=== PATIENT | female | born 1955 | race Caucasian/White ===

== ENCOUNTER → 2017-12-19 11:58 | Outpatient (CLI) | payer OTHER, SELFPAY ==
[2017-12-19 13:43] LABS: Absolute Lymphocyte Count 2.09 X10^3/ul (0.83-4.51); Absolute Neutrophil Count 2.7 X10^3/uL (2.0-7.7); Basophil# 0.02 X10^3/uL; Basophil% 0.4 % (0-1); Eosinophil# 0.12 X10^3/uL; Eosinophils% 2.3 % (0-5); Hematocrit 39.4 % (37-47); Hemoglobin 12.6 g/dl (12.0-15.0); Lymphocyte # 2.09 X10^3/ul (4.0); Lymphocyte % 39.7 % (19-41); Mean Corpuscular Hgb 27.7 pg (27.0-32.0); Mean Corpuscular Volume 86.6 fL (81-99); Mean Platelet Vol. 9.4 fl (6.2-12.0); Monocyte# 0.35 X10^3/uL; Monocyte% 6.6 % (0-10); Neutrophil # 2.68 X10^3/uL (2.7-7.7); Neutrophil % 50.8 % (47-70); Platelet Count 252 K/mm3 (150-450); RBC Distribution Width CV 14.2 % (11.6-14.6); RBC Distribution Width SD 44.5 fl (35.1-43.9); Red Blood Count 4.55 M/mm3 (4.2-5.4); White Blood Count 5.3 K/mm3 (4.4-11.0)
[2017-12-19 13:44] LABS: POSITIVE COUNT NO; POSITIVE DIFFERENTIAL NO; POSITIVE MORPHOLOGY NO
[2017-12-19 13:50] LABS: Erythrocyte Sedimentation Rate 27 mm/hr (0-30)
[2017-12-19 14:02] LABS: AST(SGOT) 34 U/L (15-37); Alanine Aminotransfer ALT/SGPT 46 U/L (13-56); Albumin, Serum 4.1 g/dL (3.2-5.0); Alkaline Phosphatase 155 U/L (45-117); Anion Gap 11 (5-15); BUN 12 mg/dL (7-18); BUN/Creat Ratio 13.6 RATIO (10-20); CRP 5.93 mg/L (0.0-3.0); Calcium,Total 9.5 mg/dL (8.5-10.1); Chloride 104 mmol/L (98-107); Creatinine, Serum 0.88 mg/dL (0.55-1.02); EST Glomerular Filtration Rate 70 mL/min (>60); Est Glom Filt Rate - Afr Amer 84 mL/min (>60); Glucose 93 mg/dL (74-106); Potassium 4.7 mmol/L (3.5-5.1); Protein, Total 8.1 g/dL (6.4-8.2); Rheumatoid Factor < 10.0 IU/mL (<15); Sodium Level 140 mmol/L (136-145)
[2017-12-20 13:44] LABS: SJOGREN'S Anti-SS-A test < 0.2 AI (0.0-0.9); SJOGREN'S Anti-SS-B test < 0.2 AI (0.0-0.9)
[2017-12-20 14:29] LABS: ANTINUCLEAR ANTIBODIES DIRECT Negative (Negative)
[2017-12-21 11:02] LABS: CCP IgG Antibodies 7 units (0-19); HEPATITIS B SURFACE AG Negative (Negative); Hep B Surface Antibodies Non Reactive (.); Hep C Antibodies <0.1 s/co ratio (0.0-0.9)
== END ==
PROVIDERS: Family Provider Family Medicine; PCP Family Medicine; Visit Provider Internal Medicine Rheumatology
DX: M06.4 Inflammatory polyarthropathy (principal); M35.00 Sjogren syndrome, unspecified; C82.90 Follicular lymphoma, unspecified, unspecified site
CPT/HCPCS: 36415; 80053; 85025; 85652; 86038; 86140; 86200; 86235; 86431; 86706; 86803; 87340

== ENCOUNTER 2025-01-26 08:57 | Emergency (ER) | payer MEDICARE, SELFPAY ==
[2025-01-26 08:58] VITALS: BP 156/82; PULSE 56; RESP 18; TEMP 36.6; O2SAT 98
[2025-01-26 08:59] VITALS: BMI 25.1
--- NOTE | 2025-01-26 10:12 | CT_ITS ---
PROCEDURE: CTA ABD/PELVIS W/WO CONTRAST 01/26/2025 REASON FOR EXAM: BLOOD PER RECTUM TECHNIQUE: CTA ABD/PELVIS W/WO CONTRAST Multiplanar Sagittal and Coronal images were obtained. 3D and or MIPS post processing was performed CONTRAST: Isovue 370 VOLUME: 100 mL One or more dose reduction techniques were used (e.g., Automated exposure control, adjustment of the mA and/or kV according to patient size, use of iterative reconstruction technique). RADIATION DOSE SUMMARY: DLP: 540 mGycm COMPARISON: None. FINDINGS: Aorta: Abdominal aorta is normal in size. No significant atherosclerotic plaque. No evidence of aneurysm or dissection. No focus of arterial contrast extravasation to suggest large active arterial bleed. Iliac Arteries: Iliac arteries are normal in size with no significant plaque or stenosis. Celiac: Mild mixed plaque of the celiac origin. Otherwise unremarkable. SMA: Normal. WES : Normal. Renal: The single bilateral renal arteries are widely patent. Extravascular Findings: Suture material within the mid abdomen, compatible with reported history of prior bowel resection. The bowel loops are normal caliber. No ascites or pneumoperitoneum. Thoracolumbar spondylosis. CT/CTA Abd/Pelvis W/WO Contrast IMPRESSION: No focus of arterial contrast extravasation to suggest large active arterial bl eed. Reading Location: [id number]
[2025-01-26 10:21] LABS: Hematocrit 38.3 % (37-47); Hemoglobin 12.6 g/dL (12.0-15.0); Immature Granulocytes Count 0.020 X10^3/uL (0.0-0.0); Mean Corp Hgb Conc 32.9 g/dL (32-36); Mean Corpuscular Volume 87.6 fL (81-99); Mean Platelet Vol. 9.7 fl (6.2-12.0); NRBC Flagged by Analyzer 0 % (0-5); Platelet Count 232 K/mm3 (150-450); RBC Distribution Width CV 12.6 % (11.6-14.6); RBC Distribution Width SD 40.3 fl (35.1-43.9); Red Blood Count 4.37 M/mm3 (4.2-5.4); White Blood Count 6.1 K/mm3 (4.4-11.0)
[2025-01-26] MEDS: 0.9% Normal Saline (1000mL) 1,000 ML 999 ML IV (10:26)
[2025-01-26 10:41] LABS: AST(SGOT) 24 U/L (<=31); Alanine Aminotransfer ALT/SGPT 14 U/L (<=34); Albumin, Serum 4.3 g/dL (3.4-4.8); Alkaline Phosphatase 110 U/L (35-104); Anion Gap 12 (5-15); BUN 13 mg/dL (4-19); BUN/Creat Ratio 15.0 RATIO (10-20); Calcium,Total 9.5 mg/dL (7.6-11.0); Carbon Dioxide 23.6 mmol/L (21.0-32.0); Chloride 105 mmol/L (98-108); Estimated Creatinine Clearance 56.45 ml/min (50-250); Globulin 2.9 g/dL (2.2-4.2); Glucose 91 mg/dL (70-99); Lipase 65 U/L (13-75); Potassium 4.0 mmol/L (3.3-5.1)
--- OUTSIDE RECORDS SUMMARY | 2025-01-26 10:47 | XMS RPT_ITS | CCD ---
Author Organization [facility] Care Team Providers Care Rn Neonatal Name Role Phone VelShahzad tabares Unavailable Unavailable Shahzad Mckinnon Unavailable Unavailable Meg De Jesus Unavailable SHAHZAD MCKINNON Unavailable Unavailable Meg De Jesus MD Primary Care Provider Meg De Jesus MD Primary Care Provider Meg De Jesus MD Primary Care Provider Meg De Jesus MD Primary Care Provider Antwon SCOTT, Miguel Unavailable SHAHEEN WINN Attending Unavailable MEG DE JESUS Primary Care Unavailable SHAHEEN WINN Referring Unavailable MEG DE JESUS Primary Care Unavailable Allergies Allergy Classification Reported Allergen(s) Allergy Type Date of Onset Reaction(s) Facility (20 sources) Tomatoes; Translations: [TOMATOES] Food Allergy 09-06-2011 Intolerance [facility] Work Phone: Medications Current Medications Medication Drug Class(es) Dates Sig (Normalized) Sig (Original) acetaminophen 500 mg oral tablet (20 sources) take 1 tablet by mouth every eight hours as needed acetaminophen (TYLENOL) 500 mg tablet Take 500 mg by mouth every 8 hours as needed. Active Comment on above: Take 500 mg by mouth every 8 hours as needed. aspirin 325 mg oral tablet (20 sources) Platelet Aggregation Inhibitor, Nonsteroidal Anti-inflammatory Drug take 1 tablet by mouth every four hours as needed aspirin 325 mg tablet Take 325 mg by mouth every 4 hours as needed. Active Comment on above: Take 325 mg by mouth every 4 hours as needed. hyoscyamine sulfate 0.125 mg oral tablet (19 sources) Start: 12-02-2022 take 1 tablet by mouth every four hours as needed hyoscyamine (LEVSIN) 0.125 mg tablet Indications: Irregular bowel habits , Diarrhea, unspecified type Take 1 tablet by mouth every 4 hours as needed. 90 tablet 3 12/02/2022 Active Start: 05-05-2020 End: 05-04-2022 take 1 tablet by mouth every four hours as needed hyoscyamine (LEVSIN) 0.125 mg tablet Indications: Irregular bowel habits , Diarrhea, unspecified type Take 1 tablet by mouth every 4 hours as needed. 30 tablet 5 05/04/2022 Active Comment on above: Take 1 tablet by rg every 4 hours as needed. ibuprofen 200 mg oral tablet (20 sources) Nonsteroidal Anti-inflammatory Drug take 1 tablet by mouth every six hours as needed ibuprofen (MOTRIN) 200 mg tablet Take 200 mg by mouth every 6 hours as needed. Usually 1 tablet once a day Active Comment on above: Take 200 mg by mouth every 6 hours as needed. Usually 1 tablet once a day MEDICATION, NON-DATABASE (20 sources) MEDICATION, NON-DATABASE Patient has Medical Marijuana card for pain Active MEDICATION, NON- DATABASE Patient has Medical Marijuana card for pain 0 Active Comment on above: Patient has Medical Marijuana card for pain predniSONE 10 mg oral tablet (1 source) Start: 06-30-2022 End: 07-15-2022 predniSONE (DELTASONE) 10 mg tablet Indications: Acute left-sided low back pain without sciatica Take 4 tabs daily x5 days, then 2 tabs daily for 5 days, then 1 tab daily for 5 days. 35 tablet 0 06/30/2022 07/15/2022 Active Comment on above: Take 4 tabs daily x5 days, then 2 tabs daily for 5 days, then 1 tab daily for 5 days. valACYclovir 500 mg oral tablet (20 sources) Herpesvirus Nucleoside Analog DNA Polymerase Inhibitor, Herpes Simplex Virus Nucleoside Analog DNA Polymerase Inhibitor, Herpes Zoster Virus Nucleoside Analog DNA Polymerase Inhibitor Start: 09-30-2020 End: 05-04-2022 valACYclovir (VALTREX) 500 mg tablet 2 tabs (2000mg) at onset and repeat in 12h 24 tablet 3 05/04/2022 Active Comment on above: 2 tabs (2000mg) at o nset and repeat in 12h Completed/Discontinued Medications Medication Drug Class(es) Dates Sig (Normalized) Sig (Original) [id number] 200 actuat albuterol 0.09 mg/actuat metered dose inhaler (7 sources) beta2-Adrenergic Agonist Start: 01-09-2023 End: 01-21-2025 take 2 puff(s) by mouth every six hours as needed albuterol HFA (PROVENTIL HFA, VENTOLIN HFA) 90 mcg/actuation inhaler INHALE 2 PUFFS BY MOUTH EVERY 6 HOURS NEEDED DIRECTED 8.5 Each 5 01/09/2023 01/21/2025 Discontinued Start: 12-17-2022 End: 01-09-2023 take 2 puff(s) by inhalation every six hours as needed albuterol HFA (PROAIR HFA) 90 mcg/actuation inhaler Inhale 2 Puffs as instructed every 6 hours as needed. 1 Each 0 12/17/2022 01/09/2023 Discontinued Comment on above: Inhale 2 Puffs as in structed every 6 hours as needed. INHALE 2 PUFFS BY MO UT EVERY 6 HOURS NEEDED DIRECTED amitriptyline hydrochloride 50 mg oral tablet (19 sources) Tricyclic Antidepressant Start: 08-27-19 End: 01-22-20 take 1 tablet by mouth at bedtime as needed amitriptyline (ELAVIL) 50 mg tablet Indications: Chronic insomnia Take 1 tablet by mouth at bedtime as needed. For Sedation 90 tablet 1 08/26/2022 01/21/2025 Discontinued Start: 12-04-2021 End: 05-04-2022 take 1 tablet by mouth at bedtime as needed amitriptyline (ELAVIL) 50 mg tablet Indications: Chronic insomnia Take 1 tablet by mouth at bedtime as needed. For Sedation 90 tablet 1 05/04/2022 Active Comment on above: TAKE 1 TABLET BY RG AT BEDTIME NEEDED. FOR SEDATION cholecalciferol 0.05 mg oral capsule (20 sources) Vitamin D End: Cholecalciferol, Vitamin D3, 50 mcg (2,000 unit) cap Take by mouth once daily. 01/21/2025 Discontinued Comment on above: Take by mouth once d aily. cycloSPORINE 0.5 mg/ml ophthalmic suspension (20 sources) Calcineurin Inhibitor Immunosuppressant Start: 019 End: take 1 drop(s) into the eye(s) twice daily cycloSPORINE (RESTASIS) 0.05 % ophthalmic emulsion Use 1 Drop in both eyes twice daily. 02/18/2019 01/21/2025 Discontinued Start: 02-18-2019 take 1 drop(s) into the eye(s) twice daily cycloSPORINE (RESTASIS) 0.05 % ophthalmic emulsion Use 1 Drop in both eyes twice daily. 0 02/18/2019 Active Comment on above: Use 1 Drop in both e yes twice daily. meclizine hydrochloride 25 mg oral tablet (7 sources) Antiemetic Start: 3 End: 5 take 1 tablet by mouth every six hours as needed meclizine (ANTIVERT) 25 mg tab Take 1 tablet by mouth every 6 hours as needed (dizziness). 12 tablet 12/17/2022 01/21/2025 Discontinued Comment on above: Take 1 tablet by rg th every 6 hours as needed (dizziness). Problems Active Problems Problem Classification Problem Date Documented Da te Episodic/Chronic Adjustment disorders (20 sources) Adjustment disorder with depressed mood; Translations: [Adjustment disorder with depressed mood] Onset: 10-07-2003 10-20-2003 Chronic Allergic reactions (1 source) Eczema; Translations: [Dermatitis, unspecified] Episodic Chronic obstructive pulmonary disease and bronchiectasis (1 source) Bronchitis; Translations: [Bronchitis, not specified as acute or chronic] Episodic Genitourinary symptoms and ill-defined conditions (20 sources) Female stress incontinence; Translations: [Stress incontinence (female) (male)] Onset: 07-22-2015 07-22-2015 Chronic Genitourinary symptoms and ill-defined conditions (1 source) Increased frequency of urination; Translations: [Frequency of micturition] Episodic Immunizations and screening for infectious disease (3 sources) Needs influenza immunization; Translations: [Encounter for immunization] Episodic Menopausal disorders (20 sources) Postmenopausal bleeding; Translations: [Postmenopausal bleeding] Onset: 06-03-2014 Chronic Miscellaneous mental health disorders (20 sources) Chronic insomnia; Translations: [Psychophysiologic insomnia] Onset: 09-30-2020 09-30-2020 Chronic Non-Hodgkin's lymphoma (20 sources) Follicular lymphoma, unspecified, unspecified site; Translations: [Follicular non-Hodgkin's lymphoma] Onset: 10-08-2015 Resolved: 10-24-2016 Chronic Osteoarthritis (20 sources) Lower limb joint arthritis; Translations: [Unilateral primary osteoarthritis, unspecified hip] Onset: 03-13-2006 03-13-2006 Chronic Other endocrine disorders (20 sources) Primary hyperparathyroidism; Translations: [Primary hyperparathyroidism] Onset: 01-16-2020 01-16-2020 Chronic Other gastrointestinal disorders (20 sources) Chronic idiopathic constipation; Translations: [Chronic idiopathic constipation] Onset: 07-22-2015 07-22-2015 Chronic Other gastrointestinal disorders (1 source) Diarrhea; Translations: [Diarrhea, unspecified] Episodic Other hereditary and degenerative nervous system conditions (20 sources) Restless legs; Translations: [Restless legs syndrome] Onset: 07-22-2015 07-22-2015 Chronic Other lower respiratory disease (1 source) Cough; Translations: [Acute cough] 12-17-2022 Episodic Other screening for suspected conditions (not mental disorders or infectious disease) (4 sources) Patient encounter status; Translations: [Encounter for screening for lipoid disorders] Episodic Rheumatoid arthritis and related disease (20 sources) Inflammatory polyarthropathy; Translations: [Rheumatoid arthritis of multiple joints] Onset: 12-19-2017 03-09-2020 Chronic Systemic lupus erythematosus and connective tissue disorders (20 sources) Sicca syndrome, unspecified; Translations: [Sjogren's syndrome] Onset: 12-19-2017 03-09-2020 Chronic Past or Other Problems Problem Classification Problem Date Documented Da te Episodic/Chronic Hemorrhoids (20 sources) Prolapsed hemorrhoids; Translations: [Other hemorrhoids] Onset: 07-22-2015 07-22-2015 Episodic Lymphadenitis (20 sources) Lymphadenopathy; Translations: [Enlarged lymph nodes, unspecified] Onset: 09-15-2015 09-15-2015 Episodic Other connective tissue disease (20 sources) Muscle, ligament and fascia disorders; Translations: [Disorder of muscle, unspecified] Onset: 03-13-2006 03-13-2006 Episodic Other connective tissue disease (4 sources) Enthesopathy of hip region; Translations: [Other specified enthesopathies of unspecified lower limb, excluding foot] Onset: 03-13-2006 Resolved: 08-18-2011 08-18-2011 Episodic Other connective tissue disease (4 sources) Bursitis; Translations: [Other bursitis, not elsewhere classified, unspecified site] Onset: 03-13-2006 Resolved: 08-18-2011 08-18-2011 Episodic Other gastrointestinal disorders (20 sources) Personal history of other diseases of the digestive system; Translations: [Personal history of other diseases of digestive system] Onset: 08-18-2011 08-18-2011 Episodic Other gastrointestinal disorders (20 sources) Irregular bowel habits; Translations: [Other specified symptoms and signs involving the digestive system and abdomen] Onset: 02-22-2019 02-22-2019 Episodic Other nervous system disorders (20 sources) Hyperesthesia; Translations: [Hyperesthesia] Onset: 10-22-2015 10-22-2015 Episodic Other skin disorders (4 sources) Disorder of skin; Translations: [Hypertrophic disorder of the skin, unspecified] Onset: 06-04-2007 Resolved: 08-18-2011 08-18-2011 Episodic Other skin disorders (4 sources) Seborrheic keratosis; Translations: [Other seborrheic keratosis] Onset: 06-04-2007 Resolved: 08-18-2011 08-18-2011 Episodic Screening and history of mental health and substance abuse codes (20 sources) Ex-smoker; Translations: [Personal history of nicotine dependence] Onset: 07-22-2015 07-22-2015 Episodic Spondylosis; intervertebral disc disorders; other back problems (20 sources) Neck pain; Translations: [Cervicalgia] Onset: 05-06-2015 05-06-2015 Episodic Viral infection (20 sources) Recurrent herpes simplex labialis; Translations: [Herpesviral vesicular dermatitis] Onset: 09-30-2020 09-30-2020 Episodic Results Test Name Value Interpretation Reference Range Facility CBC W Auto Differential pane l (Bld)on 01-21-2025 Basophils (Bld) [#/Vol] 0.03 10*3/uL [facility] Basophils/100 WBC (Bld) 0.5 % [facility] Differential cell count method Nom (Bld) Auto [facility] Eosinophils (Bld) [#/Vol] 0.05 10*3/uL [facility] Eosinophils/100 WBC (Bld) 0.8 % [facility] Erythrocyte distribution width (RBC) [Ratio] 12.3 % 11.5 - 15.0 % [facility] Hematocrit (Bld) [Volume fraction] 40.5 % 36.0 - 46.0 % [facility] Hemoglobin (Bld) [Mass/Vol] 13.5 g/dL 11.5 - 15.5 g/dL [facility] Immature granulocytes (Bld) [#/Vol] [facility] Immature granulocytes/100 WBC (Bld) 0.2 % [facility] Lymphocytes (Bld) [#/Vol] 2.7 10*3/uL [facility] Lymphocytes/100 WBC (Bld) 43.1 % [facility] MCH (RBC) [Entitic mass] 28.6 pg 26.0 - 34.0 pg [facility] MCHC (RBC) [Mass/Vol] 33.3 g/dL 30.5 - 36.0 g/dL [facility] MCV (RBC) [Entitic vol] 85.8 fL 80.0 - 100.0 fL [facility] Monocytes (Bld) [#/Vol] 0.48 10*3/uL [facility] Monocytes/100 WBC (Bld) 7.7 % [facility] Neutrophils (Bld) [#/Vol] 2.99 10*3/uL [facility] Neutrophils/100 WBC (Bld) 47.7 % [facility] Nucleated RBC (Bld) [#/Vol] [facility] Nucleated RBC/100 WBC (Bld) [Ratio] 0 % /100 WBC [facility] Platelet mean volume (Bld) [Entitic vol] 9.1 fL 9.0 - 12.7 fL [facility] Platelets (Bld) [#/Vol] 225 10*3/uL [facility] RBC (Bld) [#/Vol] 4.72 10*6/uL 3.90 - 5.2 0 m/uL [facility] WBC (Bld) [#/Vol] 6.26 10*3/uL [facility] Basophils (Bld) [#/Vol] 0.03 10*3/uL Normal <0.11 [facility] Comment on above: Order Comment: Speci men Type: BLOOD SPECIMEN Ordering Facility: [facility] Address: [address] [place] [address] Performed By: #### 5 7021-8 #### [facility] CLIA [id number] [address] [place] [address] [place] Basophils/100 WBC (Bld) 0.5 % Normal [facility] Comment on above: Order Comment: Speci men Type: BLOOD SPECIMEN Ordering Facility: [facility] Address: [address] [place] [address] Performed By: #### 5 7021-8 #### [facility] CLIA [id number] [address] [place] [address] [place] Differential cell count method Nom (Bld) Auto Normal [facility] Comment on above: Order Comment: Speci men Type: BLOOD SPECIMEN Ordering Facility: [facility] Address: [address] [place] [address] Performed By: #### 5 7021-8 #### [facility] CLIA [id number] [address] [place] [address] [place] Eosinophils (Bld) [#/Vol] 0.05 10*3/uL Normal <0.46 [facility] Comment on above: Order Comment: Speci men Type: BLOOD SPECIMEN Ordering Facility: [facility] Address: [address] [place] [address] Performed By: #### 5 7021-8 #### [facility] CLIA [id number] [address] [place] [address] [place] Eosinophils/100 WBC (Bld) 0.8 % Normal [facility] Comment on above: Order Comment: Speci men Type: BLOOD SPECIMEN Ordering Facility: [facility] Address: [address] [place] [address] Performed By: #### 5 7021-8 #### [facility] CLIA [id number] [address] [place] [address] [place] Erythrocyte distribution width (RBC) [Ratio] 12.3 % Normal 11.5-15.0 [facility] Comment on above: Order Comment: Speci men Type: BLOOD SPECIMEN Ordering Facility: [facility] Address: [address] [place] [address] Performed By: #### 5 7021-8 #### [facility] CLIA [id number] [address] [place] [address] [place] Hematocrit (Bld) [Volume fraction] 40.5 % Normal 36.0-46.0 [facility] Comment on above: Order Comment: Speci men Type: BLOOD SPECIMEN Ordering Facility: [facility] Address: [address] [place] [address] Performed By: #### 5 7021-8 #### [facility] CLIA [id number] [address] [place] [address] [place] Hemoglobin (Bld) [Mass/Vol] 13.5 g/dL Normal 11.5-15.5 [facility] Comment on above: Order Comment: Speci men Type: BLOOD SPECIMEN Ordering Facility: [facility] Address: [address] [place] [address] Performed By: #### 5 7021-8 #### [facility] CLIA [id number] [address] [place] [address] [place] Immature granulocytes (Bld) [#/Vol] 10*3/uL Normal <0.10 [facility] Comment on above: Order Comment: Speci men Type: BLOOD SPECIMEN Ordering Facility: [facility] Address: [address] [place] [address] Performed By: #### 5 7021-8 #### [id number] [address] [place] [address] [place] Immature granulocytes/100 WBC (Bld) 0.2 % Normal [facility] Comment on above: Order Comment: Speci men Type: BLOOD SPECIMEN Ordering Facility: [facility] Address: [address] [place] [address] Performed By: #### 5 7021-8 #### [facility] CLIA [id number] [address] [place] [address] [place] Lymphocytes (Bld) [#/Vol] 2.70 10*3/uL Normal 1.00-4.00 [facility] Comment on above: Order Comment: Speci men Type: BLOOD SPECIMEN Ordering Facility: [facility] Address: [address] [place] [address] Performed By: #### 5 7021-8 #### [facility] CLIA [id number] [address] [place] [address] [place] Lymphocytes/100 WBC (Bld) 43.1 % Normal [facility] Comment on above: Order Comment: Speci men Type: BLOOD SPECIMEN Ordering Facility: [facility] Address: [address] [place] [address] Performed By: #### 5 7021-8 #### [facility] CLIA [id number] [address] [place] [address] [place] MCH (RBC) [Entitic mass] 28.6 pg Normal 26.0-34.0 [facility] Comment on above: Order Comment: Speci men Type: BLOOD SPECIMEN Ordering Facility: [facility] Address: [address] [place] [address] Performed By: #### 5 7021-8 #### [facility] CLIA [id number] [address] [place] [address] [place] MCHC (RBC) [Mass/Vol] 33.3 g/dL Normal 30.5-36.0 [facility] Comment on above: Order Comment: Speci men Type: BLOOD SPECIMEN Ordering Facility: [facility] Address: [address] [place] [address] Performed By: #### 5 7021-8 #### [facility] CLIA [id number] [address] [place] [address] [place] MCV (RBC) [Entitic vol] 85.8 fL Normal 80.0-100.0 [facility] Comment on above: Order Comment: Speci men Type: BLOOD SPECIMEN Ordering Facility: [facility] Address: [address] [place] [address] Performed By: #### 5 7021-8 #### [facility] CLIA [id number] [address] [place] [address] [place] Monocytes (Bld) [#/Vol] 0.48 10*3/uL Normal <0.87 [facility] Comment on above: Order Comment: Speci men Type: BLOOD SPECIMEN Ordering Facility: [facility] Address: [address] [place] [address] Performed By: #### 5 7021-8 #### [facility] CLIA [id number] [address] [place] [address] [place] Monocytes/100 WBC (Bld) 7.7 % Normal [facility] Comment on above: Order Comment: Speci men Type: BLOOD SPECIMEN Ordering Facility: [facility] Address: [address] [place] [address] Performed By: #### 5 7021-8 #### [facility] CLIA [id number] [address] [place] [address] [place] Neutrophils (Bld) [#/Vol] 2.99 10*3/uL Normal 1.45-7.50 [facility] Comment on above: Order Comment: Speci men Type: BLOOD SPECIMEN Ordering Facility: [facility] Address: [address] [place] [address] Performed By: #### 5 7021-8 #### [facility] CLIA [id number] [address] [place] [address] [place] Neutrophils/100 WBC (Bld) 47.7 % Normal [facility] Comment on above: Order Comment: Speci men Type: BLOOD SPECIMEN Ordering Facility: [facility] Address: [address] [place] [address] Performed By: #### 5 7021-8 #### [facility] CLIA [id number] [address] [place] [address] [place] Nucleated RBC (Bld) [#/Vol] 10*3/uL Normal <0.01 [facility] Comment on above: Order Comment: Speci men Type: BLOOD SPECIMEN Ordering Facility: [facility] Address: [address] [place] [address] Performed By: #### 5 7021-8 #### [facility] CLIA [id number] [address] [place] [address] [place] Nucleated RBC/100 WBC (Bld) [Ratio] 0.0 /100 WBC Normal [facility] Comment on above: Order Comment: Speci men Type: BLOOD SPECIMEN Ordering Facility: [facility] Address: [address] [place] [address] Performed By: #### 5 7021-8 #### [facility] CLIA [id number] [address] [place] [address] [place] Platelet mean volume (Bld) [Entitic vol] 9.1 fL Normal 9.0-12.7 [facility] Comment on above: Order Comment: Speci men Type: BLOOD SPECIMEN Ordering Facility: [facility] Address: [address] [place] [address] Performed By: #### 5 7021-8 #### [facility] CLIA [id number] [address] [place] [address] [place] Platelets (Bld) [#/Vol] 225 10*3/uL Normal 150-400 [facility] Comment on above: Order Comment: Speci men Type: BLOOD SPECIMEN Ordering Facility: [facility] Address: [address] [place] [address] Performed By: #### 5 7021-8 #### [facility] CLIA [id number] [address] [place] [address] [place] RBC (Bld) [#/Vol] 4.72 10*6/uL Normal 3.90-5.20 [facility] Comment on above: Order Comment: Speci men Type: BLOOD SPECIMEN Ordering Facility: [facility] Address: [address] [place], [place] [address] Performed By: #### 5 7021-8 #### [facility] LINDAIA [id number] [address] [place] [address] [place] WBC (Bld) [#/Vol] 6.26 10*3/uL Normal 3.70-11.00 [facility] Comment on above: Order Comment: Speci men Type: BLOOD SPECIMEN Ordering Facility: [facility] Address: [address] [place] [place] [id number] Performed By: #### 5 7021-8 #### [facility] CLIA [id number] [address] [place] [address] [place] CNOVSPon 01-21-2025 CNOVSP Visit (SP) Office ([facility]) MAX ROLDAN ([id number]) 1955 F Date Time Provider Department 01/21/25 11:10 AM SHAHEEN WINN During your visit today, we recorded the following information about you: Temperature Pulse Blood pressure Weight 99.1 degrees 76/minute 130/87 64 kg Height 1.565 m Shaheen Winn DO 01/21/2025 11:53 AM Signed Diagnosis: 1) Grade 1, stage III follicular lymphoma. HPI: Patient is a 69-year-old female who had an unremarkable past medical history. She appreciated a lump just above right clavicle about a year prior to evaluation. Also noticed over the last year or so prior to presentation she had increasing fatigue and a decrease in aerobic exercise capacity. She underwent a workup fall 2014 that was suggestive of acute Roman-Josue infection/mononucleosis . Originally underwent a FNA of a supraclavicular right-sided lymph node. The pathology yielded a mixture of lymphocytes, probably small lymphocytes and a few large lymphocytes which were negative for metastatic carcinoma but suspicious for possible underlying lymphoproliferative disorder. Underwent excisional lymph node biopsy on 09/30/2015. 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 Flow cytometry analysis done at outside lab revealed a CD10 positive, CD20 positive monoclonal lymphocyte population consistent with follicular, some diffuse large B-cell lymphomas and Burkitt lymphoma. Very active typically, but started experiencing fatigue and marked decrease in exercise capacity due to general fatigue. Appetite had been normal. Previous therapy: 1) BR. Completed treatment 04/15/2016. Presents to re-establish care. Interim history: Moved to [place] in 2022. Has been doing well overall. Planning to move back to [place] early next year. Appetite is normal. However she has been making an effort to lose weight. Has lost about 15 pounds. No drenching night sweats. No significant fatigue. No pain besides chronic lower back pain. PMH, medications and allergies as below personally reviewed by me today. Any changes documented in appropriate section. ROS: Constitutional: See above. Neuro: No symptoms of neuropathy. HEENT: No recent change in voice, vision or hearing. Resp: Denies wheeze and hemoptysis. Denies shortness of breath at rest. CVS: Denies exertional chest pain, PND, orthopnea and LE edema. GI: No nausea or vomiting. : Denies dysuria or gross hematuria. No symptoms of bladder outlet obstruction. Endo: Denies hot flashes. Denies polyuria and polydipsia. Denies heat and cold intolerance. Derm: No rash. No episodes of jaundice or diffuse pruritus. Heme: Denies unusual bleeding and unexplained bruising. Psych: Normal mood. PHYSICAL EXAM: Vitals: Blood pressure 130/87, pulse 76, temperature 37.3 ?C (99.1 ?F), temperature source Temporal, height 156.5 cm (5' 1.61), weight 64 kg (141 lb), last menstrual period 01/15/2013, SpO2 97%. Well-appearing and in no acute distress. EYES: Sclerae are anicteric bilaterally. LYMPHATIC: There is no palpable cervical, supraclavicular, axillary or inguinal adenopathy. CARDIOVASCULAR: Rhythm is regular. ABDOMEN: The abdomen is nondistended. There is no organomegaly. Extremities: No swelling or edema. SKIN: No jaundice or rash. ASSESSMENT/PLAN: (C82.80) Malignant lymphoma, follicular center cell (HCC) (primary encounter diagnosis) Assessmentt: -FLIPI=2 (increased LDH and stage III disease) indicating intermediate risk. -Did not recommend maintenance rituximab due to low lymphocyte count and the potential for longer term immunosuppression. -Currently no concerning symptoms or exam findings to suggest recurrence. Plan: -Labs today. -Re-assess in about 6 months. Portions of this documentation were copied and pasted from my previous office visit note dated 12/14/2022 in order to provide a cohesive continuity of the history. The note has been reviewed and edited and updated as necessary. I spent a total of 20 minutes on the date of the service which included preparing to see the patient, [id number] patient care, completing clinical documentation, obtaining and/or reviewing separately obtained history, performing a medically appropriate examination, ordering medications, tests, or procedures, communicating with other HCPs (not separately reported), and communicating results to the patient/family/caregive rJerod Winn DO Allergies As of Date: 01/21/2025 Noted Allergy Reaction TOMATOES 09/06/2011 5 - Intolerance Date Reviewed: 01/21/2025 Reviewed by: Shaheen Winn DO - Fully Assessed Reason for Visit: Established Patient [175] Primary Visit Diagnosis: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 Normal [facility] Comprehensive metabolic 2000 panelOrdered By: Akiko Moore on 01-21-2025 Albumin [Mass/Vol] 4.6 g/dL 3.9 - 4.9 g/dL [facility] ALP [Catalytic activity/Vol] 122 U/L 34 - 123 U/L [facility] ALT [Catalytic activity/Vol] 14 U/L 7 - 38 U/L [facility] Anion gap [Moles/Vol] 15 mmol/L 8 - 15 mmol/L [facility] AST [Catalytic activity/Vol] 20 U/L 13 - 35 U/L [facility] Bilirubin [Mass/Vol] 0.4 mg/dL 0.2 - 1 .3 mg/dL [facility] Calcium [Mass/Vol] 9.8 mg/dL 8.5 - 10. 2 mg/dL [facility] Chloride [Moles/Vol] 103 mmol/L 98 - 10 7 mmol/L [facility] CO2 [Moles/Vol] 21 mmol/L Low 22 - 30 mmol/L [facility] Creatinine [Mass/Vol] 0.88 mg/dL 0.58 - 0.96 mg/dL [facility] GFR/1.73 sq M.predicted among non-blacks MDRD (S/P/Bld) [Vol rate/Area] 72 mL/min/{1.73_m2} - PINF [facility] Comment on above: Estimated Glomerular Filtration Rate (eGFR) is calculated using the 2020 CKD-EPI creatinine equation. This equation utilizes serum creatinine, sex, and age as parameters. The creatinine assay has traceable calibration to isotope dilution-mass spectrometry. Refer to KDIGO guidelines for clinical interpretation. In patients with unstable renal function, e.g. those with acute kidney injury, the eGFR may not accurately reflect actual GFR. Glucose [Mass/Vol] 111 mg/dL High 74 - 99 mg/dL [facility] Comment on above: The [place] Diabete s Association (ADA) provides guidance for cutoff values for fasting glucose and random glucose. The ADA defines fasting as no caloric intake for at least 8 hours. Fasting plasma glucose results between 100 to 125 mg/dL indicate increased risk for diabetes (prediabetes). Fasting plasma glucose results greater than or equal to 126 mg/dL meet the criteria for diagnosis of diabetes. In the absence of unequivocal hyperglycemia, results should be confirmed by repeat testing. In a patient with classic symptoms of hyperglycemia or hyperglycemic crisis, random plasma glucose results greater than or equal to 200 mg/dL meet the criteria for diagnosis of diabetes. Reference: Standards of Medical Care in Diabetes 2016, [place] Diabetes Association. Diabetes Care. 2016.39(Suppl 1). Interpretation and review of laboratory results Abnormal [facility] Potassium [Moles/Vol] 4 mmol/L 3.7 - 5.1 mmol/L [facility] Protein [Mass/Vol] 7.8 g/dL 6.3 - 8.0 g/dL [facility] Sodium [Moles/Vol] 139 mmol/L 136 - 144 mmol/L [facility] Urea nitrogen [Mass/Vol] 15 mg/dL 7 - 21 mg/dL [facility] Comprehensive metabolic 2000 panelon 01-21-2025 Albumin [Mass/Vol] 4.6 g/dL Normal 3.9-4.9 [facility] Comment on above: Order Comment: Speci men Type: BLOOD SPECIMEN Ordering Facility: [facility] Address: [address] [place] [address] Performed By: #### 2 4323-8, 2532-0 #### [facility] CLIA [id number] [address] [place] [address] [place] ALP [Catalytic activity/Vol] 122 U/L Normal 34-123 [facility] Comment on above: Order Comment: Speci men Type: BLOOD SPECIMEN Ordering Facility: [facility] Address: [address] [place] [address] Performed By: #### 2 4323-8, 2532-0 #### [facility] CLIA [id number] [address] [place] [address] [place] ALT [Catalytic activity/Vol] 14 U/L Normal 7-38 [facility] Comment on above: Order Comment: Speci men Type: BLOOD SPECIMEN Ordering Facility: [facility] Address: [address] [place] [address] Performed By: #### 2 4323-8, 2532-0 #### [facility] CLIA [id number] [address] [place] [address] [place] Anion gap [Moles/Vol] 15 mmol/L Normal 8-15 [facility] Comment on above: Order Comment: Speci men Type: BLOOD SPECIMEN Ordering Facility: [facility] Address: [address] [place] [address] Performed By: #### 2 4323-8, 2532-0 #### [facility] CLIA [id number] [address] [place] [address] [place] AST [Catalytic activity/Vol] 20 U/L Normal 13-35 [facility] Comment on above: Order Comment: Speci men Type: BLOOD SPECIMEN Ordering Facility: [facility] Address: [address] [place] [address] Performed By: #### 2 4323-8, 2531-0 #### [facility] CLIA [id number] [address] [place] [address] [place] Bilirubin [Mass/Vol] 0.4 mg/dL Normal 0.2-1.3 [facility] Comment on above: Order Comment: Speci men Type: BLOOD SPECIMEN Ordering Facility: [facility] Address: [address] [place], [place] [address] Performed By: #### 2 4323-8, 2531-0 #### [facility] CLIA [id number] [address] [place] [address] [place] Calcium [Mass/Vol] 9.8 mg/dL Normal 8.5-10.2 [facility] Comment on above: Order Comment: Speci men Type: BLOOD SPECIMEN Ordering Facility: [facility] Address: [address] [place], [place] [address] Performed By: #### 2 4323-8, 2531-0 #### [facility] CLIA [id number] [address] [place] [address] [place] Chloride [Moles/Vol] 103 mmol/L Normal 98-107 [facility] Comment on above: Order Comment: Speci men Type: BLOOD SPECIMEN Ordering Facility: [facility] Address: [address] [place] [address] Performed By: #### 2 4323-8, 2531-0 #### [facility] CLIA [id number] [address] [place] [address] [place] CO2 [Moles/Vol] 21 mmol/L Low 22-30 [facility] Comment on above: Order Comment: Speci men Type: BLOOD SPECIMEN Ordering Facility: [facility] Address: [address] [place] [address] Performed By: #### 2 4323-8, 253-0 #### [facility] CLIA [id number] [address] [place] [address] [place] Creatinine [Mass/Vol] 0.88 mg/dL Normal 0.58-0.96 [facility] Comment on above: Order Comment: Yonatan aguilar Type: BLOOD SPECIMEN Ordering Facility: [facility] Address: [address] [place] [address] Performed By: #### 2 4323-8, 2531-0 #### [facility] CLIA [id number] [address] [place] [address] [place] eGFRcr SerPlBld CKD-EPI 2020 72 mL/min/1.73m??? Normal >=60 [facility] Comment on above: Order Comment: Yonatan aguilar Type: BLOOD SPECIMEN Ordering Facility: [facility] Address: [address] [place] [address] Result Comment: Nicole mated Glomerular Filtration Rate (eGFR) is calculated using the 2020 CKD-EPI creatinine equation. This equation utilizes serum creatinine, sex, and age as parameters. The creatinine assay has traceable calibration to isotope dilution-mass spectrometry. Refer to KDIGO guidelines for clinical interpretation. In patients with unstable renal function, e.g. those with acute kidney injury, the eGFR may not accurately reflect actual GFR. Performed By: #### 2 4323-8, 2531-0 #### [facility] CLIA [id number] [address] [place] [address] [place] Glucose [Mass/Vol] 111 mg/dL High 74-99 [facility] Comment on above: Order Comment: Yonatan aguilar Type: BLOOD SPECIMEN Ordering Facility: [facility] Address: [address] [place] [address] Result Comment: The [place] Diabetes Association (ADA) provides guidance for cutoff values for fasting glucose and random glucose. The ADA defines fasting as no caloric intake for at least 8 hours. Fasting plasma glucose results between 100 to 125 mg/dL indicate increased risk for diabetes (prediabetes). Fasting plasma glucose results greater than or equal to 126 mg/dL meet the criteria for diagnosis of diabetes. In the absence of unequivocal hyperglycemia, results should be confirmed by repeat testing. In a patient with classic symptoms of hyperglycemia or hyperglycemic crisis, random plasma glucose results greater than or equal to 200 mg/dL meet the criteria for diagnosis of diabetes. Reference: Standards of Medical Care in Diabetes 2016, [place] Diabetes Association. Diabetes Care. 2016.39(Suppl 1). Performed By: #### 2 4323, 0 #### [facility] CLIA [id number] [address] [place] [address] [place] Potassium [Moles/Vol] 4.0 mmol/L Normal 3.7-5.1 [facility] Comment on above: Order Comment: Yonatan aguilar Type: BLOOD SPECIMEN Ordering Facility: [facility] Address: [address] [place] [address] Performed By: #### 2 43208-31, 0 #### [facility] CLIA [id number] [address] [place] [address] [place] Protein [Mass/Vol] 7.8 g/dL Normal 6.3-8.0 [facility] Comment on above: Order Comment: Yonatan aguilar Type: BLOOD SPECIMEN Ordering Facility: [facility] Address: [address] [place] [address] Performed By: #### 2 43208-31, 0 #### [facility] CLIA [id number] [address] [place] [address] [place] Sodium [Moles/Vol] 139 mmol/L Normal 136-144 [facility] Comment on above: Order Comment: Yonatan aguilar Type: BLOOD SPECIMEN Ordering Facility: [facility] Address: [address] [place] [address] Performed By: #### 2 4328, 2531-0 #### [facility] CLIA [id number] [address] [place] [address] [place] Urea nitrogen [Mass/Vol] 15 mg/dL Normal 7-21 [facility] Comment on above: Order Comment: Speci men Type: BLOOD SPECIMEN Ordering Facility: [facility] Address: [address] [place], [place] [address] Performed By: #### 2 4323-8, 2532-0 #### [facility] CLIA [id number] [address] [place] [address] [place] LACTATE DEHYDROGENASEon 12-25 LDH [Catalytic activity/Vol] 178 U/L 135 - 214 U/L [facility] LDH SerPl-cCncon 01-21-2025 LDH [Catalytic activity/Vol] 178 U/L Normal 135-214 [facility] Comment on above: Order Comment: Speci jeff Type: BLOOD SPECIMEN Ordering Facility: [facility] Address: [address] [place] [address] Performed By: #### 2 4323-8, 2-0 #### [facility] CLIA [id number] [address] [place] [address] [place] LDH [Catalytic activity/Vol] on 01-21-2025 Interpretation and review of laboratory results Normal [facility] XR CHEST 2V FRONTAL/LATon [facility] XR Chest PA and Lateralon IMPRESSION: No acute pulmonary process is identified. [employer] Technician: [employer] Transcribe Date/Time: Dec 17 2022 10:03A Dictated by : DANIELLE SANDERS MD This examination was interpreted and the report reviewed and electronically signed by: DANIELLE SANDERS MD on Dec 17 2022 10:04AM [facility] DIVISION OF RADIOLOGY * * *Final Report* * * DATE OF EXAM: Dec 17 2022 9:46AM WOX [id number] - XR CHEST 2V FRONTAL/LAT / PROCEDURE REASON: Acute cough * * * * Physician Interpretation * * * * EXAMINATION: CHEST RADIOGRAPH (2 VIEW FRONTAL & LATERAL) CLINICAL HISTORY: Acute cough MQ: XC2_6 EXAM DATE/TIME: 12/17/2022 9:46 AM RESULT: The heart is normal in size. There is no hebert pulmonary consolidation, pleural effusion, pneumothorax, or pulmonary vascular redistribution. There is multilevel degenerative change seen within the thoracic spine. DIVISION OF RADIOLOGY Provider, Peter Woods - 12/17/2022 * * *Final Report* * * DATE OF EXAM: Dec 17 2022 9:46AM WOX 5291 - XR CHEST 2V FRONTAL/LAT / PROCEDURE REASON: Acute cough * * * * Physician Interpretation * * * * EXAMINATION: CHEST RADIOGRAPH (2 VIEW FRONTAL & LATERAL) CLINICAL HISTORY: Acute cough MQ: XC2_6 EXAM DATE/TIME: 12/17/2022 9:46 AM RESULT: The heart is normal in size. There is no hebert pulmonary consolidation, pleural effusion, pneumothorax, or pulmonary vascular redistribution. There is multilevel degenerative change seen within the thoracic spine. IMPRESSION IMPRESSION: No acute pulmonary process is identified. Alternative Energy Technician: [facility] Transcribe Date/Time: Dec 17 2022 10:03A Dictated by : DANIELLE SANDERS MD This examination was interpreted and the report reviewed and electronically signed by: DANIELLE SANDERS MD on Dec 17 2022 10:04AM EST [facility] Radiology Study observation (narrative) [facility] XR Chest PA and LateralOrder ed By: [facility] Provider on 12-17-2022 [facility] XR Lumbar spine 3 Viewson IMPRESSION: DEGENERATIVE CHANGE AND ALIGNMENT ABNORMALITIES DESCRIBED. Alternative [employer] Technician: [facility] Transcribe Date/Time: Jul 04 2022 10:38A Dictated by : RALF BUCKNER MD This examination was interpreted and the report reviewed and electronically signed by: RALF BUCKNER MD on Jul 04 2022 10:50AM [facility] DIVISION OF RADIOLOGY * * *Final Report* * * DATE OF EXAM: Jun 30 2022 5:24PM WOX 5228 - XR LUMBAR 3V AP/LAT/L5-S1 / PROCEDURE REASON: Acute left-sided low back pain without sciatica * * * * Physician Interpretation * * * * Examination: XR LUMBAR 3V AP/LAT/L5-S1 History: Acute left-sided low back pain without sciatica Technique: XR LUMBAR 3V AP/LAT/L5-S1 Comparison: CT scans of 10/28/2015 RESULT: 5 nonrib-bearing lumbar-type vertebrae. For numbering purposes, L4-5 is the level of the iliac crest. Moderate L4-5 disc space narrowing. Severe L5-S1 disc space narrowing. Grade 1 spondylolisthesis of L4 on L5. Degenerative change involving the posterior elements from L3 through S1. No fracture or bony abnormality DIVISION OF RADIOLOGY Provider, Peter abernathy [place] - 07/04/2022 * * *Final Report* * * DATE OF EXAM: Jun 30 2022 5:24PM WOX [id number] - XR LUMBAR 3V AP/LAT/L5-S1 / PROCEDURE REASON: Acute left-sided low back pain without sciatica * * * * Physician Interpretation * * * * Examination: XR LUMBAR 3V AP/LAT/L5-S1 History: Acute left-sided low back pain without sciatica Technique: XR LUMBAR 3V AP/LAT/L5-S1 Comparison: CT scans of 10/28/2015 RESULT: 5 nonrib-bearing lumbar-type vertebrae. For numbering purposes, L4-5 is the level of the iliac crest. Moderate L4-5 disc space narrowing. Severe L5-S1 disc space narrowing. Grade 1 spondylolisthesis of L4 on L5. Degenerative change involving the posterior elements from L3 through S1. No fracture or bony abnormality IMPRESSION IMPRESSION: DEGENERATIVE CHANGE AND ALIGNMENT ABNORMALITIES DESCRIBED. [employer] Technician: [employer] Transcribe Date/Time: Jul 04 2022 10:38A Dictated by : RALF BUCKNER MD This examination was interpreted and the report reviewed and electronically signed by: RALF BUCKNER MD on Jul 04 2022 10:50AM EST [facility] XR Lumbar spine 3 ViewsOrder ed By: Ccf Provider on 07-04-2022 [facility] XR Lumbar spine 3 Viewson Radiology Study observation (narrative) [facility] UA DIP, URINE (POC)on 2022 BILIRUBIN UA (POCT) Negative Negative [facility] CLARITY UA (POCT) Clear [facility] COLOR UA (POCT) Yellow [facility] GLUCOSE UA (POCT) Negative Negative mg/dL [facility] HEMOGLOBIN/BLOOD UA (POCT) Negative Negative [facility] KETONE UA (POCT) Negative Negative mg/dL [facility] LEUKOCYTES UA (POCT) Negative Negative [facility] NITRITE UA (POCT) Negative Negative [facility] PH UA (POCT) 5.5 4.5 - 8.0 [facility] Protein Ql (U) Negative Negative mg/dL [facility] SPECIFIC GRAVITY UA (POCT) 1.015 1.005 - 1.030 [facility] UROBILINOGEN UA (POCT) 0.2 E.U./dL Normal E.U./dL [facility] .Auto Diffon 03-05-2018 Ammonia mass conc (P) 0.40 10 3/mcL Normal 0.15-1.00 [facility] ([place]) Comment on above: Performed By: #### C PADILLA SONG, ANEU ####[place] [address]#### GFR, CMP ####[address] [address] Basophils Auto #/vol (Bld) 0.00 10 3/mcL Normal 0.00-0.19 [facility] ([place]) Comment on above: Performed By: #### PADILLA KNAPP, ANEU ####[place] [address]#### GFR, CMP ####[address] [address] Basophils/100 WBC Auto (Bld) 0.6 % Normal 0.0-2.5 [facility] ([place]) Comment on above: Performed By: #### PADILLA KNAPP, ANEU ####[place] [address] [address]#### GFR, CMP ####[address] [address] Eosinophils Auto #/vol (Bld) 0.10 10 3/mcL Normal 0.00-0.40 [facility] ([place]) Comment on above: Performed By: #### PADILLA KNAPP, ANEU ####[address]eth [address] [place] [address]#### GFR, CMP ####[address] [address] Eosinophils/100 WBC Auto (Bld) 2.7 % Normal 0.0-7.0 [facility] ([place]) Comment on above: Performed By: #### C BC, ADIFF, ANEU ####[address] [place], [place] [address]#### GFR, CMP ####[address] [address] Lymphocytes Auto #/vol (Bld) 2.00 10 3/mcL Normal 0.77-3.85 [facility] ([place]) Comment on above: Performed By: #### C BC, ADIFF, ANEU ####[address] [place], [place] [address]#### GFR, CMP ####[address] [address] Lymphocytes/100 WBC Auto (Bld) 43.4 % Normal 10.0-50.0 [facility] ([place]) Comment on above: Performed By: #### C BC, ADIFF, ANEU ####[id number] [place] [address]#### GFR, CMP ####[address] [address] Monocytes/100 WBC Auto (Bld) 8.4 % Normal 1.7-13.0 [facility] ([place]) Comment on above: Performed By: #### C BC, ADIFF, ANEU ####[address] [place], [place] [address]#### GFR, CMP ####[address] [address] Neutrophils/100 WBC Auto (Bld) 44.9 % Normal 37.0-80.0 [facility] ([place]) Comment on above: Performed By: #### C BC, ADIFF, ANEU ####Kenneth [address] [place], [place] [address]#### GFR, CMP ####[address] [address] .GFRon 03-05-2018 GFR Non- 70 ml/min/1.73sqm Normal [facility] ([place]) Comment on above: Result Comment: GFR Population mean for , Non- Americans Ages 20-29 = 116 mL/min/1.73 sq.m. Ages 30-39 = 107 mL/min/1.73 sq.m. Ages 40-49 = 99 mL/min/1.73 sq.m. Ages 50-59 = 93 mL/min/1.73 sq.m. Ages 60-69 = 85 mL/min/1.73 sq.m. Ages 70+ = 75 mL/min/1.73 sq.m.Chronic Kidney Disease: Less than 60 mL/min/1.73 square metersEnd Stage Renal Disease: Less than 15 mL/min/1.73 square meters Performed By: #### C BC, ADIFF, ANEU ####[address] [place] [address]#### GFR, CMP ####[place] [address] GFR 85 ml/min/1.73sqm Normal [facility] ([place]) Comment on above: Result Comment: GFR Population mean for , Non- Americans Ages 20-29 = 116 mL/min/1.73 sq.m. Ages 30-39 = 107 mL/min/1.73 sq.m. Ages 40-49 = 99 mL/min/1.73 sq.m. Ages 50-59 = 93 mL/min/1.73 sq.m. Ages 60-69 = 85 mL/min/1.73 sq.m. Ages 70+ = 75 mL/min/1.73 sq.m.Chronic Kidney Disease: Less than 60 mL/min/1.73 square metersEnd Stage Renal Disease: Less than 15 mL/min/1.73 square meters Performed By: #### C BC, ADIFF, ANEU ####[address] [place] [id number]#### GFR, CMP ####[place] [id number] .NEUABSon 03-05-2018 Neutrophil, Absolute 2.00 10 3/mcL Low 2.85-6.16 [facility] ([place]) Comment on above: Performed By: #### C BC, NASIFF, ANEU ####[address] [place] [address]#### GFR, CMP ####[place] [address] CBCon 03-05-2018 Erythrocyte distribution width Auto Ratio (RBC) 14.3 % Normal 11.5-14.5 [facility] ([place]) Comment on above: Performed By: #### C BC, ADIFF, ANEU ####[address] [place] [address]#### GFR, CMP ####[place] [address] Hematocrit Auto Volume Fraction (Bld) 39.5 % Normal 37.0-47.0 [facility] ([place]) Comment on above: Performed By: #### C NOHEMI, ADIFF, ANEU ####[address] [place] [address]#### GFR, CMP ####[place] [address] Hemoglobin mass conc (Bld) 13.4 G/dL Normal 12.0-16.0 [facility] ([place]) Comment on above: Performed By: #### C NOHEMI, ADIFF, ANEU ####[place] [address]#### GFR, CMP ####[place] [address] MCH Auto Entitic mass (RBC) 28.9 pg Normal 27.0-31.2 [facility] ([place]) Comment on above: Performed By: #### C BC, ADIFF, ANEU ####[address] [place] [address]#### GFR, CMP ####[place] [address] MCHC Auto mass conc (RBC) 34.1 G/dL Normal 33.0-37.0 [facility] ([place]) Comment on above: Performed By: #### C BC, ADIFF, ANEU ####Kenneth [address] [place] [address]#### GFR, CMP ####[address] [address] MCV Auto Entitic volume (RBC) 84.7 fL Normal 80.0-94.0 [facility] ([place]) Comment on above: Performed By: #### PADILLA KNAPP, ANEU ####[place] [address]#### GFR, CMP ####[place] [address] Platelet mean volume Auto Entitic volume (Bld) 7.5 fL Normal 7.4-10.4 [facility] ([place]) Comment on above: Performed By: #### C PADILLA SONG, ANEU ####[place] [address]#### GFR, CMP ####[place] [address] Platelets Auto #/vol (Bld) 231 10 3/mcL Normal 130-400 [facility] ([place]) Comment on above: Performed By: #### PADILLA KNAPP, ANEU ####[place] [address]#### GFR, CMP ####[place] [address] RBC Auto #/vol (Bld) 4.66 10 6/mcL Normal 4.20-5.40 [facility] ([place]) Comment on above: Performed By: #### C PADILLA SONG, ANEU ####[place] [address]#### GFR, CMP ####[place] [address] WBC Auto #/vol (Bld) 4.50 10 3/mcL Low 4.60-10.80 [facility] ([place]) Comment on above: Performed By: #### PADILLA KNAPP, ANEU ####[address] [place] [address]#### GFR, CMP ####[place] [address] CMPon 03-05-2018 Albumin mass conc 4.4 G/dL Normal 3.4-4.8 [facility] ([place]) Comment on above: Performed By: #### C BC, ADIFF, ANEU ####[address] [address]#### GFR, CMP ####[address] [address] Albumin/Globulin mass ratio 1.4 {ratio} Normal 1.1-2.5 [facility] ([place]) Comment on above: Performed By: #### C BC, ADIFF, ANEU ####[address] [address]#### GFR, CMP ####[address] [address] ALP enzyme act/vol 108 U/L Normal 40-135 [facility] ([place]) Comment on above: Performed By: #### C BC, ADIFF, ANEU ####[place] [address]#### GFR, CMP ####[address] [address] ALT enzyme act/vol 26 U/L Normal 10-35 [facility] ([place]) Comment on above: Performed By: #### C BC, ADIFF, ANEU ####[place] [id number]#### GFR, CMP ####[address] [address] AST enzyme act/vol 22 U/L Normal 10-40 [facility] ([place]) Comment on above: Performed By: #### C BC, ADIFF, ANEU ####[address] [address]#### GFR, CMP ####[address] [address] Bili Total 0.4 mg/dL Normal 0.2-1.0 [facility] ([place]) Comment on above: Performed By: #### C BC, ADIFF, ANEU ####[place] [id number]#### GFR, CMP ####[facility] [place] [address] Globulin Calculated mass conc (S) 3.1 G/dL Normal [facility] ([place]) Comment on above: Performed By: #### C BC, ADIFF, ANEU ####Kenneth [address] [place], [place] [address]#### GFR, CMP ####[facility] [place] [address] Glucose mass conc 101 mg/dL Normal 80-115 [facility] ([place]) Comment on above: Performed By: #### C BC, ADIFF, ANEU ####Kenneth [address] [place], [place] [address]#### GFR, CMP ####[address] [address] Protein mass conc 7.5 G/dL Normal 6.4-8.2 [facility] ([place]) Comment on above: Performed By: #### C BC, ADIFF, ANEU ####Kenneth [address] [place], [place] [address]#### GFR, CMP ####[facility] [place] [address] Urea nitrogen mass conc 15 mg/dL Normal 7-18 [facility] ([place]) Comment on above: Performed By: #### C BC, ADIFF, ANEU ####Kenneth [address] [place], [place] [address]#### GFR, CMP ####[address] [address] Urea nitrogen/Creatinine mass ratio 18 ratio Normal 7-27 [facility] ([place]) Comment on above: Performed By: #### C BC, ADIFF, ANEU ####Kenneth [address] [place], [place] [address]#### GFR, CMP ####[place] [id number] [place] [address] Calcium mass conc 9.6 mg/dL Normal 8.4-10.2 [facility] ([place]) Comment on above: Performed By: #### C BC, ADIFF, ANEU ####[place] [place], [place] [address]#### GFR, CMP ####[address] [address] Chloride molar conc 105 mmol/L Normal 98-107 [facility] ([place]) Comment on above: Performed By: #### C BC, ADIFF, ANEU ####[facility] [place], [place] [id number]#### GFR, CMP ####[place] [address] CO2 molar conc 25 mmol/L Normal 23-31 [facility] ([place]) Comment on above: Performed By: #### C BC, ADIFF, ANEU ####[place] [address]#### GFR, CMP ####[place] [address] Creatinine mass conc 0.83 mg/dL Normal 0.55-1.02 [facility] ([place]) Comment on above: Performed By: #### C BC, ADIFF, ANEU ####[place] [address]#### GFR, CMP ####[place] [address] Electrolyte Balance 13.0 mEq/L Normal [facility] ([place]) Comment on above: Performed By: #### C BC, ADIFF, ANEU ####[place] [address]#### GFR, CMP ####[place] [address] Potassium molar conc 4.4 mmol/L Normal 3.5-5.1 [facility] ([place]) Comment on above: Performed By: #### C BC, ADIFF, ANEU ####[place] [id number]#### GFR, CMP ####[address] [address] Sodium molar conc 143 mmol/L Normal 136-145 [facility] ([place]) Comment on above: Performed By: #### C BC, ADIFF, ANEU ####Kenneth [address] [place], [place] [address]#### GFR, CMP ####[address] [address] CCP IgG Antibodieson 018 ANTI-CCP 214183 7 units Normal 0-19 [facility] Comment on above: Result Comment: Nega tive <20 Weak positive 20 - 39 Moderate positive 40 - 59 Strong positive >59 Performed By: #### L 100.0100, L101.9900 ####[facility] [address] [place], [place], [id number] Hep B Surface Antibodieson 0 12-21-2017 Hep B Jones AB Non Reactive Normal . [facility] Comment on above: Result Comment: Non Reactive: Inconsistent with immunity, less than 10 mIU/mL Reactive: Consistent with immunity, greater than 9.9 mIU/mL Performed By: #### L 3100.0390, L3100.0528, L3100.0625, L4600.0100 ####[facility] (refer to report for specific site)refer to report for address and phone number Hepatitis B Surface Agon HB SURF AG Negative Normal Negative [facility] Comment on above: Result Comment: Perf ormed at: - [facility] [address] [id number] Director: Zak Morgan PhD, Phone: [phone] at: - [facility] [address] [id number] Director: Sergei Bergman MD, Phone: [phone] Performed By: #### L 3100.0390, L3100.0528, L3100.0625, L4600.0100 ####[facility] (refer to report for specific site)refer to report for address and phone number Hepatitis C Antibodieson HEP C AB <0.1 Normal 0.0-0.9 [facility] Comment on above: Result Comment: Nega tive: < 0.8 Indeterminate: 0.8 - 0.9 Positive: > 0.9 The CDC recommends that a positive HCV antibody result be followed up with a HCV Nucleic Acid Amplification test (970352). Performed By: #### L 3100.0390, L3100.0528, L3100.0625, L4600.0100 ####[facility] (refer to report for specific site)refer to report for address and phone number ANTINUCLEAR ANTIBODIES DIREC Ton 12-20-2017 EDUARDO-DIRECT Negative Normal Negative [facility] Comment on above: Result Comment: Plea se Note: Specimen is lipemic.Performed at: [facility] [id number] Director: Zak Morgan PhD, Phone: [phone] Performed By: #### L 3100.5475, L3100.9100 ####[facility] (refer to report for specific site)refer to report for address and phone number Sjogren's Antibodies A/Bon 0 12-20-2017 Anti-SS-A < 0.2 Normal 0.0-0.9 [facility] Comment on above: Performed By: #### L 3100.5475, L3100.9100 ####[facility] (refer to report for specific site)refer to report for address and phone number Anti-SS-B < 0.2 Normal 0.0-0.9 [facility] Comment on above: Performed By: #### L 3100.5475, L3100.9100 ####[facility] (refer to report for specific site)refer to report for address and phone number CBC W/Diff, Automatedon - Absolute Neut 2.7 X10 3/uL Normal 2.0-7.7 [facility] Comment on above: Performed By: #### L 100.0100, L101.9900 ####[facility] [address] [place], [address] Basophils/100 WBC Auto (Bld) 0.4 % Normal 0-1 [facility] Comment on above: Performed By: #### L 100.0100, L101.9900 ####[facility] [address] [place], [address] Eosinophils/100 leukocytes 2.3 % Normal 0-5 [facility] Comment on above: Performed By: #### L 100.0100, L101.9900 ####[facility] [address] [place], [address] Erythrocyte distribution width Auto Ratio (RBC) 14.2 % Normal 11.6-14.6 [facility] Comment on above: Performed By: #### L 100.0100, L101.9900 ####[facility] [address] [place], [address] Erythrocytes (RBC) 4.55 M/mm3 Normal 4.2-5.4 [facility] Comment on above: Performed By: #### L 100.0100, L101.9900 ####[facility] [address] [place], [address] Hematocrit (HCT) 39.4 % Normal 37-47 [facility] Comment on above: Performed By: #### L 100.0100, L101.9900 ####[facility] [address] [place], [address] Hemoglobin mass conc (Bld) 12.6 g/dL Normal 12.0-15.0 [facility] Comment on above: Performed By: #### L 100.0100, L101.9900 ####[facility] [address] [place], [address] IM GRAN % 0.200 % Normal 0.0-0.9 [facility] Comment on above: Result Comment: IG% - Immature Granulocytes (promyelocytes, myelocytes andmetamyelocytes) > 1% indicates that a LEFT SHIFT is Present. Performed By: #### L 100.0100, L101.9900 ####[facility] [address] [place], [address] Lymphocytes 2.09 X10 3/ul Normal 0.83-4.51 [facility] Comment on above: Performed By: #### L 100.0100, L101.9900 ####[facility] [address] [place], [address] Lymphocytes/100 leukocytes 39.7 % Normal 19-41 [facility] Comment on above: Performed By: #### L 100.0100, L101.9900 ####[facility] [address] [place], [address] MCH 27.7 pg Normal 27.0-32.0 [facility] Comment on above: Performed By: #### L 100.0100, L101.9900 ####[facility] [address] [place], [address] MCHC mass conc (RBC) 32.0 g/gl Normal 32-36 [facility] Comment on above: Performed By: #### L 100.0100, L101.9900 ####[facility] [address] [place], [address] MCV 86.6 fL Normal 81-99 [facility] Comment on above: Performed By: #### L 100.0100, L101.9900 ####[facility] [address] [place], [address] Monocytes/100 leukocytes 6.6 % Normal 0-10 [facility] Comment on above: Performed By: #### L 100.0100, L101.9900 ####[facility] [address] [place], [address] Neutrophils/100 WBC Auto (Bld) 50.8 % Normal 47-70 [facility] Comment on above: Performed By: #### L 100.0100, L101.9900 ####[facility] [address] [place], [address] Platelet mean volume (PMV) 9.4 fL Normal 6.2-12.0 [facility] Comment on above: Performed By: #### L 100.0100, L101.9900 ####[facility] [address] [place], [address] Platelets 252 10*3/uL Normal 150-450 [facility] Comment on above: Performed By: #### L 100.0100, L101.9900 ####[facility] [address] [place], [address] RDW SD 44.5 fl High 35.1-43.9 [facility] Comment on above: Performed By: #### L 100.0100, L101.9900 ####[facility] [address] [place], [address] WBC (Leukocytes) 5.3 10*3/uL Normal 4.4-11.0 [facility] Comment on above: Performed By: #### L 100.0100, L101.9900 ####[facility] [address] [place], [address] CRPon 12-19-2017 C-REACTIVE PROT 5.93 mg/L High 0.0-3.0 [facility] Comment on above: Result Comment: C-Re active Protein (CRP) provides useful information for thediagnosis, therapy and monitoring of inflammatory processesand associated diseases. For the evaluation of Relative Riskfor Cardiovascular Disease, a High Sensitivity CRP (HSCRP)should be ordered. Performed By: #### L 500.4050, L501.6710, L505.7010 ####[facility] [address] [place], [address] Comprehensive Metabolic Prof ilon 12-19-2017 A/G 1.0 RATIO Normal 0.9-2.4 [facility] Comment on above: Performed By: #### L 500.4050, L501.6710, L505.7010 ####[facility] [address] [place], [address] Alanine aminotransferase (ALT) 46 U/L Normal 13-56 [facility] Comment on above: Performed By: #### L 500.4050, L501.6710, L505.7010 ####[facility] [address] [place], [address] Albumin 4.1 g/dL Normal 3.2-5.0 [facility] Comment on above: Performed By: #### L 500.4050, L501.6710, L505.7010 ####[facility] [address] [place], [address] Alkaline phosphatase (ALP) 155 U/L High 45-117 [facility] Comment on above: Performed By: #### L 500.4050, L501.6710, L505.7010 ####[facility] [address] [place], [address] Aspartate aminotransferase (AST) 34 U/L Normal 15-37 [facility] Comment on above: Performed By: #### L 500.4050, L501.6710, L505.7010 ####[facility] [address] [place], [address] Bilirubin (total) 0.30 mg/dL Normal 0.20-1.00 [facility] Comment on above: Performed By: #### L 500.4050, L501.6710, L505.7010 ####[facility] [address] [place], [address] BUN (urea nitrogen) 13.6 RATIO Normal 10-20 [facility] Comment on above: Performed By: #### L 500.4050, L501.6710, L505.7010 ####[facility] [address] [place], [address] Calcium 9.5 mg/dL Normal 8.5-10.1 [facility] Comment on above: Performed By: #### L 500.4050, L501.6710, L505.7010 ####[facility] [address] [place], [address] Chloride 104 mmol/L Normal 98-107 [facility] Comment on above: Performed By: #### L 500.4050, L501.6710, L505.7010 ####[facility] [address] [place], [address] CO2 25.0 mmol/L Normal 21.0-32.0 [facility] Comment on above: Performed By: #### L 500.4050, L501.6710, L505.7010 ####[facility] [address] [place], [address] Creatinine 0.88 mg/dL Normal 0.55-1.02 [facility] Comment on above: Result Comment: The validity of the calculated GFR AND GFRAA in patients over70 years has not been determined. Clinical correlation isessential. Performed By: #### L 500.4050, L501.6710, L505.7010 ####[facility] [address] [place], [address] eGFR (non-black) 84 mL/min/{1.73_m2} Normal >60 [facility] Comment on above: Result Comment: Afri can [place] GFR Calc Performed By: #### L 500.4050, L501.6710, L505.7010 ####[facility] [address] [place], [address] eGFR (non-black) 70 mL/min/{1.73_m2} Normal >60 [facility] Comment on above: Result Comment: Non- GFR Calc Performed By: #### L 500.4050, L501.6710, L505.7010 ####[facility] [address] [place], [address] GAP 11 Normal 5-15 [facility] Comment on above: Performed By: #### L 500.4050, L501.6710, L505.7010 ####[facility] [address] [place], [address] Globulin 4.0 g/dL Normal 2.2-4.2 [facility] Comment on above: Performed By: #### L 500.4050, L501.6710, L505.7010 ####[facility] [address] [place], [address] Glucose mass conc 93 mg/dL Normal 74-106 [facility] Comment on above: Result Comment: Kat sanchez note revised GLUCOSE reference range daofupsza51/02/2018. Performed By: #### L 500.4050, L501.6710, L505.7010 ####[facility] [address] [place], [address] Potassium molar conc 4.7 mmol/L Normal 3.5-5.1 [facility] Comment on above: Performed By: #### L 500.4050, L501.6710, L505.7010 ####[facility] [address] [place], [address] Sodium 140 mmol/L Normal 136-145 [facility] Comment on above: Performed By: #### L 500.4050, L501.6710, L505.7010 ####[facility] [address] [place], [address] T PROT 8.1 g/dL Normal 6.4-8.2 [facility] Comment on above: Performed By: #### L 500.4050, L501.6710, L505.7010 ####[facility] [address] [place], [address] Urea nitrogen 12 mg/dL Normal 7-18 [facility] Comment on above: Performed By: #### L 500.4050, L501.6710, L505.7010 ####[facility] [address] [place], [address] Erythrocyte Sed Rateon 12-19 SED RATE 27 mm/hr Normal 0-30 [facility] Comment on above: Performed By: #### L 100.0100, L101.9900 ####[facility] [address] [place], [place], [address] Rheumatoid Factoron 12-20-19 18 RHEUMATOID FAC < 10.0 Normal <15 [facility] Comment on above: Performed By: #### L 500.4050, L501.6710, L505.7010 ####[facility] [address] [place], [place], [address] Vital Signs Date Time Vital Sign Value Performing Clinician Faci lity 01-21-2025 11:07-0400 Body height 156.5 cm Shaheen Fieldbook DO Work Phone: [facility] 01-21-2025 11:07-0400 Body mass index (BMI) [Ratio] 26.11 kg/m2 Shaheen Valtech Cardioi DO Work Phone: [facility] 01-21-2025 11:07-0400 Body temperature 99.1 [degF] Shaheen Valtech Cardioi DO Work Phone: [facility] 01-21-2025 11:07-0400 Body weight 63.96 kg Shaheen Valtech Cardioi DO Work Phone: [facility] 01-21-2025 11:07-0400 Diastolic blood pressure 87 mm[Hg] Shaheen Valtech Cardioi DO Work Phone: [facility] 01-21-2025 11:07-0400 Heart rate 76 /min Shaheen Valtech Cardioi DO Work Phone: [facility] 01-21-2025 11:07-0400 SaO2% (BldA) [Mass fraction] 97 % Shaheen Valtech Cardioi DO Work Phone: [facility] 01-21-2025 11:07-0400 Systolic blood pressure 130 mm[Hg] Shaheen Valtech Cardioi DO Work Phone: [facility] 12-17-2022 09:25-0400 Body temperature 97.81 [degF] Mahogany Athy PA-C Work Phone: [facility] 12-17-2022 09:25-0400 Body weight 66.13 kg Mahogany Athy PA-C Work Phone: [facility] 12-17-2022 09:25-0400 Diastolic blood pressure 104 mm[Hg] Mahogany Athy PA-C Work Phone: [facility] 12-17-2022 09:25-0400 Heart rate 85 /min Mahogany Athy PA-C Work Phone: [facility] 12-17-2022 09:25-0400 Respiratory rate 20 /min Mahogany Athy PA-C Work Phone: [facility] 12-17-2022 09:25-0400 SaO2% (BldA) [Mass fraction] 95 % Mahogany Athy PA-C Work Phone: [facility] 12-17-2022 09:25-0400 Systolic blood pressure 160 mm[Hg] Mahogany Athy PA-C Work Phone: [facility] 12-14-2022 09:59-0400 Body height 157.5 cm Shaheen Masci DO Work Phone: [facility] 12-14-2022 09:59-0400 Body temperature 97.9 [degF] Shaheen Masci DO Work Phone: [facility] 12-14-2022 09:59-0400 Body weight 66.68 kg Shaheen Masci DO Work Phone: [facility] 12-14-2022 09:59-0400 Diastolic blood pressure 87 mm[Hg] Shaheen Masci DO Work Phone: [facility] 12-14-2022 09:59-0400 Heart rate 74 /min Shaheen Masci DO Work Phone: [facility] 12-14-2022 09:59-0400 Systolic blood pressure 139 mm[Hg] Shaheen Masci DO Work Phone: [facility] 06-30-2022 16:28-0500 Body weight 68.67 kg Meg De Jesus MD Work Phone: [facility] 06-30-2022 16:28-0500 Diastolic blood pressure 70 mm[Hg] Meg De Jesus MD Work Phone: [facility] 06-30-2022 16:28-0500 Heart rate 74 /min Meg De Jesus MD Work Phone: [facility] 06-30-2022 16:28-0500 Respiratory rate 16 /min Meg De Jesus MD Work Phone: [facility] 06-30-2022 16:28-0500 Systolic blood pressure 122 mm[Hg] Meg De Jesus MD Work Phone: [facility] 06-28-2022 14:40-0500 Body temperature 98.29 [degF] Dione Praisler-Wood SANITATION SUPERVISOR.LIVING SUPERVISOR Work Phone: [facility] 06-28-2022 14:40-0500 Body weight 66.77 kg Dione Praisler-Wood SANITATION SUPERVISOR.LIVING SUPERVISOR Work Phone: [facility] 06-28-2022 14:40-0500 Diastolic blood pressure 86 mm[Hg] Dione Praisler-Wood SANITATION SUPERVISOR.LIVING SUPERVISOR Work Phone: [facility] 06-28-2022 14:40-0500 Heart rate 79 /min Dione Praisler-Wood SANITATION SUPERVISOR.LIVING SUPERVISOR Work Phone: [facility] 06-28-2022 14:40-0500 Respiratory rate 18 /min Dione Praisler-Wood SANITATION SUPERVISOR.LIVING SUPERVISOR Work Phone: [facility] 06-28-2022 14:40-0500 SaO2% (BldA) [Mass fraction] 100 % Dione Praisler-Wood SANITATION SUPERVISOR.LIVING SUPERVISOR Work Phone: [facility] 06-28-2022 14:40-0500 Systolic blood pressure 148 mm[Hg] Dione Praisler-Wood SANITATION SUPERVISOR.LIVING SUPERVISOR Work Phone: [facility] 05-04-2022 11:53-0500 Body weight 64.86 kg Meg De Jesus MD Work Phone: [facility] 05-04-2022 11:53-0500 Diastolic blood pressure 74 mm[Hg] Meg De Jesus MD Work Phone: [facility] 05-04-2022 11:53-0500 Heart rate 78 /min Meg De Jesus MD Work Phone: [facility] 05-04-2022 11:53-0500 Respiratory rate 16 /min Meg De Jesus MD Work Phone: [facility] 05-04-2022 11:53-0500 Systolic blood pressure 126 mm[Hg] Meg De Jesus MD Work Phone: [facility] 02-17-2022 14:29-0400 Body height 157 cm Shaheen Cami DO Work Phone: [facility] 02-17-2022 14:29-0400 Body temperature 98.4 [degF] Shaheen Masci DO Work Phone: [facility] 02-17-2022 14:29-0400 Body weight 64.41 kg Shaheen Masci DO Work Phone: [facility] 02-17-2022 14:29-0400 Diastolic blood pressure 80 mm[Hg] Shaheen Cami DO Work Phone: [facility] 02-17-2022 14:29-0400 Heart rate 86 /min Shaheen Masci DO Work Phone: [facility] 02-17-2022 14:29-0400 SaO2% (BldA) [Mass fraction] 97 % Shaheen Cami DO Work Phone: [facility] 02-17-2022 14:29-0400 Systolic blood pressure 135 mm[Hg] Shaheen Cami DO Work Phone: [facility] Encounters Encounter Date Encounter Type Care Provider Facility Start: 01-21-2025 End: 01-21-2025 Patient encounter procedure Shaheen Winn DO Work Phone: Hematology/Oncology Start: 01-21-2025 End: 01-21-2025 ambulatory Shaheen Winn DO Work Phone: Hematology/Oncology Comment on above: 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) (Primary Dx) Start: 04-03-2024 End: 04-08-2024 ambulatory eMg De Jesus MD Work Phone: Internal Medicine [facility] [place] Start: 04-26-2023 ambulatory Meg villatoro MD Work Phone: Internal Medicine [facility] Start: 01-08-2023 Refill Mahogany Elias Work Phone: [facility] Comment on above: Refill Request Start: 12-19-2022 Telephone encounter Dione Earnest Murillo APRN.CNP Work Phone: [facility] Comment on above: Results Start: 12-17-2022 End: 12-17-2022 Subsequent hospital visit by physician Xr On License Of [facility] [place] Work Phone: Radiology Comment on above: Acute cough [R05.1] Start: 12-17-2022 End: 12-17-2022 Patient encounter procedure Mahogany NEGRO-C Work Phone: [facility] Comment on above: Bronchitis (Primary Dx) Start: 12-14-2022 End: 12-14-2022 ambulatory Shaheen Winn DO Work Phone: Hematology/Oncology Comment on above: 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) (Primary Dx) Start: 12-14-2022 End: 12-14-2022 Patient encounter procedure [facility]en Winn DO [facility] Start: 09-26-2022 Telephone encounter Shaheen esparza DO Work Phone: Hematology/Oncology Comment on above: Appointment Start: 08-26-2022 ambulatory Meg villatoro MD Work Phone: [facility] Comment on above: [employer] Start: 06-30-2022 End: 06-30-2022 Subsequent hospital visit by physician Renetta On License Of [facility] [place] Work Phone: Radiology Comment on above: Acute left-sided low back pain without sciatica [M54.50] Start: 06-30-2022 End: 06-30-2022 Patient encounter procedure Meg De Jesus MD Work Phone: [facility] [place] Comment on above: Acute left-sided low back pain without sciatica (Primary Dx) Start: 06-28-2022 End: 06-28-2022 Patient encounter procedure Dione Camacho APRN.CNP Work Phone: [facility] Comment on above: Urinary frequency (P rimary Dx); Acute left-sided low back pain without sciatica Start: 05-11-2022 ambulatory Meg villatoro MD Work Phone: Internal Medicine [facility] [place] Start: 05-04-2022 End: 05-04-2022 Patient encounter procedure Meg De Jesus MD Work Phone: [facility] [place] Comment on above: Wellness examination (Primary Dx); Chronic insomnia; Need for influenza vaccination; Need for COVID-19 vaccine; Need for pneumococcal vaccine; Eczema, unspecified type; Irregular bowel habits; Diarrhea, unspecified type; Recurrent cold sores; 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); Adjustment disorder with depressed mood; Rheumatoid arthritis involving multiple sites with positive rheumatoid factor (HCC) Start: 05-04-2022 End: 05-04-2022 Patient encounter status Meg De Jesus MD Work Phone: [facility] [place] Start: 05-03-2022 Refill Rianna Colville on PA-C Work Phone: [facility] [place] Comment on above: Refill Request Start: 04-22-2022 ambulatory Meg villatoro MD Work Phone: [facility] [place] Comment on above: Labs Start: 03-02-2022 ambulatory Shaheen Neal O Work Phone: Hematology/Oncology Comment on above: LDH Start: 03-02-2022 E-mail encounter fro m caregiver Shaheen Winn DO Work Phone: [facility] Start: 02-17-2022 End: 02-17-2022 ambulatory Shaheen Winn DO Work Phone: Hematology/Oncology Comment on above: 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) (Primary Dx) Start: 02-17-2022 End: 02-17-2022 Patient encounter procedure Shaheen Willie Tatum DO Work Phone: [facility] Start: 02-16-2022 Orders Only Shaheen Tapia Tatum D O Work Phone: Hematology/Oncology Comment on above: 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) (Primary Dx) Start: 03-05-2018 End: 03-06-2018 Patient encounter [facility] Facility:[facility] Start: 12-19-2017 Ambulatory [facility] Facility :[facility] Procedures Date Procedure Procedure Detail Performing Clinician Start: 12-17-2022 Radiologic exam ches t 2 views Mahogany Gonzalez PAAliaC Work Phone: Start: 06-30-2022 Radex spine lumbosac ral 2/3 views Meg De Jesus MD Work Phone: Start: 06-28-2022 Urnls dip stick/tabl et rgnt auto w/o microscopy Ashley Haley SANITATION SUPERVISOR.LIVING SUPERVISOR Work Phone: Start: 05-04-2022 INFLUENZA VACCINE QUADRIVALENT 6 MO - 64 YRS IM Meg De Jesus MD Work Phone: Start: 05-04-2022 PFIZER-BIONTECH COVI D-19 BIVALENT BOOSTER VACCINE, AGE 12+ YR Meg De Jesus MD Work Phone: Start: 05-02-2022 Lipid 1996 panel - S isabel or Plasma Meg De Jesus MD Work Phone: Start: 02-14-2022 Adult depression scr eening assessment Shaheen Winn DO Work Phone: Start: 04-07-2021 Mammography Shaheen Winn DO Work Phone: Start: 07-06-2015 Brigid Winn DO Work Phone: Plan of Treatment Date Care Activity Detail Author Start: 01-22-2028 Diabetes Screening Diabetes Screenin g [facility] Start: 05-02-2027 Lipid 1996 panel - S isabel or Plasma Lipid Screening [facility] Start: 05-02-2027 Lipid panel Lipid Screening [facility] Start: 05-02-2027 LIPID SCREEN LIPID SCREEN [facility] Start: 05-10-2026 Urine microalbumin profile [facility] Start: 07-25-2025 End: 07-25-2025 ambulatory [place] [facility] Comment on above: CBC/CMP/LDH 6MO OV/EARLY LABS Start: 02-24-2025 Influenza vaccination Influenza Vacc ine (#1) [facility] Start: 06-26-2024 Advance Directive Discussion Advance Directive Discussion [facility] Start: 02-25-2024 Covid-19 Vaccine ( season) Covid-19 Vaccine () [facility] Start: 02-25-2024 Covid-19 Vaccine ( season) Covid-19 Vaccine ( season) [facility] Start: 02-25-2024 Influenza vaccination Influenza Vacc ine (#1) [facility] Start: 06-26-2023 Advance Directive Discussion Advance Directive Discussion [facility] Start: 05-26-2023 Medicare Annual Well ness Visit Medicare Annual Wellness Visit [facility] Start: 03-20-2023 HPV TESTING HPV TESTING [facility] Start: 03-20-2023 PAP TESTING PAP TESTING [facility] Start: 02-24-2023 Covid-19 Vaccine ( season) Covid-19 Vaccine ( season) [facility] Start: 02-24-2023 Influenza vaccination [facility] Start: 02-14-2023 Adult depression screening assessment DEPRESSION SCREENING [facility] Start: 11-24-2022 DIABETES SCREEN DIABETES SCREEN [facility] Start: 11-24-2022 Diabetes Screening Diabetes Screenin g [facility] Start: 06-26-2022 ADVANCE DIRECTIVE DISCUSSION ADVANCE DIRECTIVE DISCUSSION [facility] Start: 06-26-2022 DEPRESSION ASSESSMENT DEPRESSION ASS ESSMENT [facility] Start: 2022 BONE DENSITY BONE DENSITY [facility] Start: 2022 Bone Density Screening Bone Density Screening [facility] Start: 2022 Screening for osteoporosis Bone Density Screening [facility] Start: 05-11-2022 LIPID SCREEN LIPID SCREEN [facility] Start: 04-22-2022 End: 06-22-2022 Lipid 1996 panel - Serum or Plasma LIPID PANEL BASIC Lab Routine Screening for lipid disorders Expected: 04/22/2022, Expires: 06/22/2022 [facility] Work Phone: Comment on above: Expected: 04/22/2022 , Expires: 06/22/2022 Start: 04-07-2022 Mammography [facility] Start: 04-07-2022 Screening for malign ant neoplasm of breast Mammogram Screening [facility] Start: 02-24-2022 Influenza vaccination INFLUENZA (#1) [facility] Start: 02-17-2022 End: 04-19-2022 CBC W Auto Differential panel - Blood CBC + DIFF Lab STAT 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) Expected: 02/17/2022, Expires: 04/19/2022 [facility] Work Phone: Comment on above: Expected: 02/17/2022 , Expires: 04/19/2022 Start: 02-17-2022 End: 04-19-2022 Lactate dehydrogenase [Enzymatic activity/volume] in Serum or Plasma LD LACTATE DEHYDRO Lab Routine 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) Expected: 02/17/2022, Expires: 04/19/2022 [facility] Work Phone: Comment on above: Expected: 02/17/2022 , Expires: 04/19/2022 Start: 07-19-2021 COVID-19 VACCINE (3 - Booster for Lottie series) COVID-19 VACCINE (3 - Booster for Lottie series) [facility] Start: 07-19-2021 COVID-19 VACCINE (3 - Lottie risk series) COVID-19 VACCINE (3 - Lottie risk series) [facility] Start: 06-26-2021 DEPRESSION ASSESSMENT DEPRESSION ASS ESSMENT [facility] Start: 07-06-2017 Colonoscopy COLONOSCOPY [facility] Start: 07-06-2017 COLORECTAL CANCER SCREENING COLORECTAL CANCER SCREENING [facility] Start: 07-06-2017 Screening for malign ant neoplasm of colon [facility] Start: 2017 RSV Vaccine (1 - 1-d ose 60+ series) RSV Vaccine (1 - 1-dose 60+ series) [facility] Start: 2017 RSV Vaccine (1 - Ris k 60-74 years 1-dose series) RSV Vaccine (1 - Risk 60-74 years 1-dose series) [facility] Start: 05-27-2015 FECAL OCCULT BLOOD FECAL OCCULT BLOO D [facility] Start: 05-27-2015 Screening for malign ant neoplasm of colon Fecal Occult Blood [facility] Start: 2002 COLOGUARD (FIT-DNA) COLOGUARD (FIT-D NA) [facility] Start: [address] [facility] Start: 2002 Screening for malign ant neoplasm of colon [facility] Start: 2002 SIGMOIDOSCOPY SIGMOIDOSCOPY [facility] Start: 1976 SHINGRIX VACCINE (1 of 2) SHINGRIX VACCINE (1 of 2) [facility] Start: 1975 Anxiety Screening Anxiety Screening [facility] Start: 1975 Depression Screening Depression Scre ening [facility] Start: 1963 PNEUMOCOCCAL (1 - PCV) PNEUMOCOCCAL (1 - PCV) [facility] COVID, FLU A/B + RSV , ROUTINE COVID, FLU A/B + RSV, ROUTINE Microbiology Routine Bronchitis Ordered: 12/17/2022 [facility] Work Phone: Comment on above: Ordered: 12/17/2022 End: 05-03-2025 DBT Breast - bilateral screening COLTON SCREENING W [facility] Radiology Routine Encounter for screening mammogram for breast cancer 1 Occurrences starting 04/03/2024 until 05/03/2025 [facility] Work Phone: Comment on above: 1 Occurrences starti ng 04/03/2024 until 05/03/2025 End: 05-25-2024 COLTON SCREENING COLTON SCREENING Radiology Routine Encounter for screening mammogram for breast cancer 1 Occurrences starting 04/26/2023 until 05/25/2024 [facility] Work Phone: Comment on above: 1 Occurrences starti ng 04/26/2023 until 05/25/2024 End: 07-30-2023 Radex spine lumbosacral 2/3 views XR LUMBAR GENERAL 3V AP/LAT/L5-S1 Radiology Routine Acute left-sided low back pain without sciatica 1 Occurrences starting 06/30/2022 until 07/30/2023 [facility] Work Phone: Comment on above: 1 Occurrences starti ng 06/30/2022 until 07/30/2023 Radex spine lumbosac ral 2/3 views XR LUMBAR GENERAL 3V AP/LAT/L5-S1 Radiology Routine Acute left-sided low back pain without sciatica 06/30/2022 5:24 PM EST [facility] Work Phone: ROUTINE FLU A/B + RSV ROUTINE FL U A/B + RSV Lab Routine Bronchitis Ordered: 12/17/2022 [facility] Work Phone: Comment on above: Ordered: 12/17/2022 SARS-CoV-2 (COVID-19 ) RNA [Presence] in Respiratory specimen by ENEIDA with probe detection 2019 CORONAVIRUS Microbiology Routine Bronchitis Ordered: 12/17/2022 [facility] Work Phone: Comment on above: Ordered: 12/17/2022 End: 06-10-2023 Screening mammography bi 2-view breast inc cad COLTON SCREENING Radiology Routine Encounter for screening mammogram for breast cancer 1 Occurrences starting 05/11/2022 until 06/10/2023 [facility] Work Phone: Comment on above: 1 Occurrences starti ng 05/11/2022 until 06/10/2023 [place] [facility] Immunizations Immunization Date Immunization Notes Care Provider Lisandra wong 05-04-2022 COVID-19 booster vaccine, age 12+ yr, bivalent (PFIZER-BIONTKeclon) Meg De Jesus MD Work Phone: [facility] 05-04-2022 influenza, injectabl e, quadrivalent, contains preservative Meg De Jesus MD Work Phone: [facility] 05-04-2022 pneumococcal (PCV20) vaccine, 20 valent (PREVNAR 20) Meg De Jesus MD Work Phone: [facility] 05-04-2022 pneumococcal Conjugate, unspecified formulation Meg De Jesus MD Work Phone: [facility] Work Phone: 05-04-2022 influenza virus vaccine, unspecified formulation Meg De Jesus MD Work Phone: [facility] 05-24-2021 COVID-19 vaccine (LOTTIE) Shaheen Dorinai DO Work Phone: [facility] 03-23-2021 influenza, injectabl e, quadrivalent, contains preservative Shaheen Masci DO Work Phone: [facility] 09-05-2020 COVID-19 vaccine (LOTTIE) Shaheen Masci DO Work Phone: [facility] 03-09-2020 influenza, injectabl e, quadrivalent, contains preservative Shaheen Masci DO Work Phone: [facility] 04-09-2019 influenza, seasonal, injectable Shaheen Masci DO Work Phone: [facility] 04-06-2018 influenza, injectabl e, quadrivalent, contains preservative Shaheen Masci DO Work Phone: [facility] 04-26-2017 influenza, seasonal, injectable Shaheen Masci DO Work Phone: [facility] 05-10-2016 tetanus toxoid, reduced diphtheria toxoid, and acellular pertussis vaccine, adsorbed Shaheen Dorinai DO Work Phone: [facility] 04-21-2016 influenza, injectabl e, quadrivalent, contains preservative Shaheen Masci DO Work Phone: [facility] Work Phone: 04-22-2015 influenza, seasonal, injectable Shaheen Masci DO Work Phone: [facility] 04-24-2014 influenza, seasonal, injectable Shaheen Masci DO Work Phone: [facility] 06-12-2008 influenza virus vaccine, unspecified formulation Shaheen Masci DO Work Phone: [facility] Work Phone: 01-23-2006 tuberculin skin test ; purified protein derivative solution, intradermal Xr [place] Work Phone: [facility] Payers Date Payer Category Payer Medicare MEDICARE [id number] 2023 Medicare [id number] 2017 Unknown [id number] 2016 Private Health Insurance [facility] UMR CHOICE PLUS [id number] 2016-Present [phone] [address] [address] [place] [address] HMO [id number] Social History Date Type Detail Facility Start: 10-11-2011 End: 01-21-2025 Tobacco smoking status NHIS Ex-smoker [facility] Work Phone: Start: 08-24-2000 End: 08-24-2010 History of tobacco use Current smoker [facility] Work Phone: Start: 08-24-2000 End: 08-24-2010 History of tobacco use Cigarette Smoker [facility] Work Phone: Start: 10-11-2011 End: 01-21-2025 Cigarettes smoked current (pack per day) - Reported 1 [facility] Start: 10-11-2011 End: 01-21-2025 Tobacco use and exposure Smokeless tobacco non-user [facility] Work Phone: Start: 03-23-2021 End: 12-17-2022 Alcohol intake Current drinker of alcohol (finding) [facility] Start: 03-07-2020 End: 06-30-2022 History SDOH Alcohol Frequency 2 [facility] Start: 03-07-2020 End: 06-30-2022 History SDOH Alcohol Std Drinks 1 [facility] Start: 08-21-2017 History SDOH Alcohol Comment 2-3 times a year [facility] Start: 03-07-2020 End: 06-30-2022 History SDOH Social Connections Phone 3 [facility] Start: 03-07-2020 End: 06-30-2022 History SDOH Physical Activity MPS 4 [facility] Start: 03-09-2020 End: 06-30-2022 History SDOH Financial 5 [facility] Start: 03-07-2020 Education 15 [facility] Start: 1955 Sex Assigned At Female [facility] Work Phone: Start: 02-07-2022 End: 05-04-2022 Exposure to SARS-CoV-2 (event) Not sure [facility] Start: 05-04-2022 History SDOH Physical Activity DPW 0 [facility] Start: 06-30-2022 End: 01-21-2025 Social connection and isolation panel [facility] Do you belong to any clubs or organizations such as caodaism groups, unions, fraternal or athletic groups, or school groups? No [facility] Are you now , , , , never or living with a partner? [facility] How often to you hav e a drink containing alcohol? Monthly or less [facility] How many standard dr inks containing alcohol do you have on a typical day? 1 or 2 [facility] How often do you hav e 6 or more drinks on 1 occasion? Never [facility] How hard is it for y ou to pay for the very basics like food, housing, medical care, and heating Not hard at all [facility] Do you feel stress - tense, restless, nervous, or anxious, or unable to sleep at night because your mind is troubled all the time - these days [OSQ] Only a little [facility] (I/We) worried wheth er (my/our) food would run out before (I/we) got money to buy more. Never true [facility] Start: 03-23-2021 Gender identity Identifies as female gender (finding) [facility] Work Phone: Start: 03-23-2021 Sexual orientation Heterosexual (finding) [facility] Work Phone: Start: 01-21-2025 Alcoholic beverage intake Ex-drinker (finding) [facility] christian Functional Status Date Assessment Result Facility 11-29-2014 Are you deaf, or do you have serious difficulty hearing No 11/29/2014 9:47 AM EDT Mimi Phillips MA No [facility] 11-29-2014 Are you blind, or do you have serious difficulty seeing, even when wearing glasses No 11/29/2014 9:47 AM ERICT Mimi Phillips MA [facility] 11-29-2014 Do you have serious difficulty walking or climbing stairs No 11/29/2014 9:47 AM ERICT Mimi Phillips MA [facility] 11-29-2014 Do you have difficul ty dressing or bathing No 11/29/2014 9:47 AM ERICT Mimi Phillips MA [facility] 11-29-2014 Because of a physica l, mental, or emotional condition, do you have difficulty doing errands alone such as visiting a physician's office or shopping No 11/29/2014 9:47 AM ERICT Mimi Phillips MA [facility] Mental Status Date Assessment Result Facility 11-29-2014 Because of a physica l, mental, or emotional condition, do you have serious difficulty concentrating, remembering, or making decisions No 11/29/2014 9:47 AM ERICT Mimi Phillips MA [facility] Clinical Notes 10-08-2015 to 01-21-2025 Shaheen Winn DO - 01/21/2025 11:07 AM EDTTelephone Encounter - Meg De Jesus MD - 01/09/2023 7:25 PM EDTTelephone Encounter - Salma Jimenez LPN - 01/09/2023 5:42 PM EDT Note Date & Type Note Facility 01-21-2025 Note HNO ID: [id number] Author: SHAHEEN WINN DO Service: ? Author Type: Physician Type: Progress Notes Filed: 01/21/2025 11:53 Note Text: Diagnosis: 1) Grade 1, stage III follicular lymphoma. HPI: Patient is a 69-year-old female who had an unremarkable past medical history. She appreciated a lump just above right clavicle about a year prior to evaluation. Also noticed over the last year or so prior to presentation she had increasing fatigue and a decrease in aerobic exercise capacity. She underwent a workup fall 2014 that was suggestive of acute Roman-Josue infection/mononucleosis. Originally underwent a FNA of a supraclavicular right-sided lymph node. The pathology yielded a mixture of lymphocytes, probably small lymphocytes and a few large lymphocytes which were negative for metastatic carcinoma but suspicious for possible underlying lymphoproliferative disorder. Underwent excisional lymph node biopsy on 09/30/2015. 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 Flow cytometry analysis done at outside lab revealed a CD10 positive, CD20 positive monoclonal lymphocyte population consistent with follicular, some diffuse large B-cell lymphomas and Burkitt lymphoma. Very active typically, but started experiencing fatigue and marked decrease in exercise capacity due to general fatigue. Appetite had been normal. Previous therapy: 1) BR. Completed treatment 04/15/2016. Presents to re-establish care. Interim history: Moved to [place] in 2022. Has been doing well overall. Planning to move back to [place] early next year. Appetite is normal. However she has been making an effort to lose weight. Has lost about 15 pounds. No drenching night sweats. No significant fatigue. No pain besides chronic lower back pain. PMH, medications and allergies as below personally reviewed by me today. Any changes documented in appropriate section. ROS: Constitutional: See above. Neuro: No symptoms of neuropathy. HEENT: No recent change in voice, vision or hearing. Resp: Denies wheeze and hemoptysis. Denies shortness of breath at rest. CVS: Denies exertional chest pain, PND, orthopnea and LE edema. GI: No nausea or vomiting. : Denies dysuria or gross hematuria. No symptoms of bladder outlet obstruction. Endo: Denies hot flashes. Denies polyuria and polydipsia. Denies heat and cold intolerance. Derm: No rash. No episodes of jaundice or diffuse pruritus. Heme: Denies unusual bleeding and unexplained bruising. Psych: Normal mood. PHYSICAL EXAM: Vitals: Blood pressure 130/87, pulse 76, temperature 37.3 ?C (99.1 ?F), temperature source Temporal, height 156.5 cm (5' 1.61), weight 64 kg (141 lb), last menstrual period 01/15/2013, SpO2 97%. Well-appearing and in no acute distress. EYES: Sclerae are anicteric bilaterally. LYMPHATIC: There is no palpable cervical, supraclavicular, axillary or inguinal adenopathy. CARDIOVASCULAR: Rhythm is regular. ABDOMEN: The abdomen is nondistended. There is no organomegaly. Extremities: No swelling or edema. SKIN: No jaundice or rash. ASSESSMENT/PLAN: (C82.80) Malignant lymphoma, follicular center cell (HCC) (primary encounter diagnosis) Assessmentt: -FLIPI=2 (increased LDH and stage III disease) indicating intermediate risk. -Did not recommend maintenance rituximab due to low lymphocyte count and the potential for longer term immunosuppression. -Currently no concerning symptoms or exam findings to suggest recurrence. Plan: -Labs today. -Re-assess in about 6 months. Portions of this documentation were copied and pasted from my previous office visit note dated 12/14/2022 in order to provide a cohesive continuity of the history. The note has been reviewed and edited and updated as necessary. I spent a total of 20 minutes on the date of the service which included preparing to see the patient, [id number] patient care, completing clinical documentation, obtaining and/or reviewing separately obtained history, performing a medically appropriate examination, ordering medications, tests, or procedures, communicating with other HCPs (not separately reported), and communicating results to the patient/family/caregiver. Shaheen Winn DO [facility] 01-21-2025 History of Present illness Narrative Diagnosis: 1) Grade 1, stage III follicular lymphoma. HPI: Patient is a 69-year-old female who had an unremarkable past medical history. She appreciated a lump just above right clavicle about a year prior to evaluation. Also noticed over the last year or so prior to presentation she had increasing fatigue and a decrease in aerobic exercise capacity. She underwent a workup fall 2014 that was suggestive of acute Roman-Josue infection/mononucleosis. Originally underwent a FNA of a supraclavicular right-sided lymph node. The pathology yielded a mixture of lymphocytes, probably small lymphocytes and a few large lymphocytes which were negative for metastatic carcinoma but suspicious for possible underlying lymphoproliferative disorder. Underwent excisional lymph node biopsy on 09/30/2015. 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 Flow cytometry analysis done at outside lab revealed a CD10 positive, CD20 positive monoclonal lymphocyte population consistent with follicular, some diffuse large B-cell lymphomas and Burkitt lymphoma. Very active typically, but started experiencing fatigue and marked decrease in exercise capacity due to general fatigue. Appetite had been normal. Previous therapy: 1) BR. Completed treatment 04/15/2016. Presents to re-establish care. Interim history: Moved to [place] in 2022. Has been doing well overall. Planning to move back to [place] early next year. Appetite is normal. However she has been making an effort to lose weight. Has lost about 15 pounds. No drenching night sweats. No significant fatigue. No pain besides chronic lower back pain. PMH, medications and allergies as below personally reviewed by me today. Any changes documented in appropriate section. ROS: Constitutional: See above. Neuro: No symptoms of neuropathy. HEENT: No recent change in voice, vision or hearing. Resp: Denies wheeze and hemoptysis. Denies shortness of breath at rest. CVS: Denies exertional chest pain, PND, orthopnea and LE edema. GI: No nausea or vomiting. : Denies dysuria or gross hematuria. No symptoms of bladder outlet obstruction. Endo: Denies hot flashes. Denies polyuria and polydipsia. Denies heat and cold intolerance. Derm: No rash. No episodes of jaundice or diffuse pruritus. Heme: Denies unusual bleeding and unexplained bruising. Psych: Normal mood. PHYSICAL EXAM: Vitals: Blood pressure 130/87, pulse 76, temperature 37.3 C (99.1 F), temperature source Temporal, height 156.5 cm (5' 1.61), weight 64 kg (141 lb), last menstrual period 01/15/2013, SpO2 97%. Well-appearing and in no acute distress. EYES: Sclerae are anicteric bilaterally. LYMPHATIC: There is no palpable cervical, supraclavicular, axillary or inguinal adenopathy. CARDIOVASCULAR: Rhythm is regular. ABDOMEN: The abdomen is nondistended. There is no organomegaly. Extremities: No swelling or edema. SKIN: No jaundice or rash. ASSESSMENT/PLAN: (C82.80) Malignant lymphoma, follicular center cell (HCC) (primary encounter diagnosis) Assessmentt: -FLIPI=2 (increased LDH and stage III disease) indicating intermediate risk. -Did not recommend maintenance rituximab due to low lymphocyte count and the potential for longer term immunosuppression. -Currently no concerning symptoms or exam findings to suggest recurrence. Plan: -Labs today. -Re-assess in about 6 months. Portions of this documentation were copied and pasted from my previous office visit note dated 12/14/2022 in order to provide a cohesive continuity of the history. The note has been reviewed and edited and updated as necessary. I spent a total of 20 minutes on the date of the service which included preparing to see the patient, [id number] patient care, completing clinical documentation, obtaining and/or reviewing separately obtained history, performing a medically appropriate examination, ordering medications, tests, or procedures, communicating with other HCPs (not separately reported), and communicating results to the patient/family/caregiver. Shaheen Winn DO documented in this encounter [facility] 04-03-2024 Note Patient Outreach (IN [facility]) MAX ROLDAN ([id number]) 1955 F Date Time Provider Department 04/03/24 MEG DE JESUS During your visit today, we recorded the following information about you: Allergies As of Date: 04/03/2024 Noted Allergy Reaction TOMATOES 09/06/2011 5 - Intolerance Date Reviewed: 12/17/2022 Reviewed by: Gudelia Warren MA - Fully Assessed Visit Diagnosis:Encounter for screening mammogram for breast cancer [Z12.31] Order(s):COLTON SCREENING W CALVIN [[id number]] Order #: [id number] FUTURE Prescriptions as of 04/08/2024 - albuterol HFA (PROVENTIL HFA, VENTOLIN HFA) 90 mcg/actuation inhaler INHALE 2 PUFFS BY MOUTH EVERY 6 HOURS NEEDED DIRECTED - meclizine (ANTIVERT) 25 mg tab Take 1 tablet by mouth every 6 hours as needed (dizziness). - hyoscyamine (LEVSIN) 0.125 mg tablet Take 1 tablet by mouth every 4 hours as needed. - amitriptyline (ELAVIL) 50 mg tablet Take 1 tablet by mouth at bedtime as needed. For Sedation - valACYclovir (VALTREX) 500 mg tablet 2 tabs (2000mg) at onset and repeat in 12h - acetaminophen (TYLENOL) 500 mg tablet Take 500 mg by mouth every 8 hours as needed. - MEDICATION, NON-DATABASE Patient has Medical Marijuana card for pain - cycloSPORINE (RESTASIS) 0.05 % ophthalmic emulsion Use 1 Drop in both eyes twice daily. - Cholecalciferol, Vitamin D3, 50 mcg (2,000 unit) cap Take by mouth once daily. - aspirin 325 mg tablet Take 325 mg by mouth every 4 hours as needed. - ibuprofen (MOTRIN) 200 mg tablet Take 200 mg by mouth every 6 hours as needed. Usually 1 tablet once a day Problem List As Of Date 04/03/2024 Noted Resolved BRIEF DEPRESSIVE REACT [F43.21] 10/07/2003 Enthesopathy of hip region [M76.899] 03/13/2006 08/18/2011 ILIOTIBIAL BAND SYNDROME NOS [M62.9, M24.20] 03/13/2006 OSTEOARTHROS NOS-PELVIS [M16.10] 03/13/2006 Other bursitis disorders [M71.50] 03/13/2006 08/18/2011 ACROCHORDON [L91.9, L90.9] 06/04/2007 08/18/2011 SEBORRHEIC KERATOSIS [L82.1] 06/04/2007 08/18/2011 H/O small bowel obstruction [Z87.19] 08/18/2011 PMB (postmenopausal bleeding) [N95.0] 06/03/2014 Neck pain [M54.2] 05/06/2015 Prolapsed hemorrhoids [K64.8] 07/22/2015 Chronic idiopathic constipation [K59.04] 07/22/2015 JEREMY (stress urinary incontinence, female) [N39.*07/22/2015 Restless legs [G25.81] 07/22/2015 Former smoker [Z87.891] 07/22/2015 Enlarged lymph nodes [R59.9] 09/15/2015 Malignant lymphoma, follicular center cell (HCC*10/08/2015 10/24/2016 Thermal hyperesthesia [R20.3] 10/22/2015 Follicular lymphoma grade I of lymph nodes of m*11/12/2015 Irregular bowel habits [R19.8] 02/22/2019 Primary hyperparathyroidism (HCC) [E21.0] 01/16/2020 Sjogren's syndrome (HCC) [M35.00] 03/09/2020 Rheumatoid arthritis involving multiple sites w*03/09/2020 Chronic insomnia [F51.04] 09/30/2020 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] 09/30/2020 Encounter Status:Closed by [employer] on 04/08/24 [facility] 01-09-2023 Miscellaneous Notes OK to refill as ordered Meg De Jesus MD Patient has been identified by name and date of : Yes Patient phones for refill(s): Requested Prescriptions Pending Prescriptions Disp Refills albuterol HFA (PROVENTIL HFA, VENTOLIN HFA) 90 mcg/actuation inhaler [Pharmacy Med Name: ALBUTEROL HFA (PROAIR) INHALER] 8.5 Each Sig: INHALE 2 PUFFS BY MOUTH EVERY 6 HOURS NEEDED DIRECTED Date of last office visit in primary care: 06/30/2022 Last 2 Encounter Wt Readings: Date: Wt: 12/17/2022 66.1 kg (145 lb 12.8 oz) 12/14/2022 66.7 kg (147 lb) Previous labs/tests for medication: Not applicable Please advise. Thank you. Salma Jimenez LPN documented in this encounter [facility] 12-19-2022 Miscellaneous Notes Left detailed message on a secured voicemail. Lynn Roman ----- Message from Dione Camacho APRN.LIVING SUPERVISOR sent at 12/19/2022 11:52 AM EDT ----- Please advise patient the COVID test was negative ([facility] documented in this encounter [facility] 12-17-2022 History of Present illness Narrative Radiology Service Progress Note PATIENT NAME: Max Roldan DATE OF SERVICE: December 17, 2022 TIME: 9:40 AM PATIENT IDENTITY VERIFICATION COMPLETED USING TWO (2) IDENTIFIERS: Name and Date of confirmed by patient verbally. FALL SCREENING: Has the patient had 2 falls in the last year or 1 fall with injury or currently using an Ambulatory Assistive Device (Walker, Cane, Wheelchair, Crutches, etc.)? No PATIENT GENDER DATA: Female. status: : No status: NO. PATIENT RELEVANT IMPLANT DATA REVIEWED: Yes RADIOLOGY DEPARTMENT: General X-ray: Exam(s) Completed: Chest X-Ray PERIPHERAL IV DATA: Not applicable SIGNED BY: RT Harshal(R) December 17, 2022 9:40 AM documented in this encounter [facility] 12-17-2022 History of Present illness Narrative This note was created using Bharat Matrimonyter. Subjective Max Roldan is a 67 year old female. HPI Presents with cough, chest congestion shortness of breath off and on. She also has felt lightheaded today and dizzy when she moves her head. She is nauseated. She did have body aches and felt feverish the first couple of days of symptoms. She has had symptoms for a week now. Her was actually admitted for bronchitis the beginning of the week as well and her daughter is sick with similar symptoms. She did do a COVID test which was negative. Her had tested negative for COVID. No diarrhea. Denies chest pain. Has not ate or drink anything yet today. Review of Systems Constitutional: Positive for chills, fatigue and fever. HENT: Positive for congestion. Negative for ear pain. Respiratory: Positive for cough, chest tightness, shortness of breath and wheezing. Cardiovascular: Negative. Gastrointestinal: Negative. Genitourinary: Negative. Musculoskeletal: Negative. Neurological: Positive for dizziness and light-headedness. Negative for headaches. All other systems reviewed and are negative. PAST MEDICAL HISTORY Diagnosis Date Arthritis hands, right hip. RA Chronic insomnia 09/30/2020 Enlarged lymph node in neck 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) 11/12/2015 Loss of perineal body, female Papanicolaou smear of cervix with atypical squamous cells of undetermined significance (ASC-US) 2004 cleared Primary hyperparathyroidism ([facility]) 01/16/2020 Rectal prolapse Sjogren's disease ([facility]) Unspecified intestinal obstruction Recurrent Current Outpatient Medications Medication Sig Dispense Refill hyoscyamine (LEVSIN) 0.125 mg tablet Take 1 tablet by mouth every 4 hours as needed. 90 tablet 3 amitriptyline (ELAVIL) 50 mg tablet Take 1 tablet by mouth at bedtime as needed. For Sedation 90 tablet 1 valACYclovir (VALTREX) 500 mg tablet 2 tabs (2000mg) at onset and repeat in 12h 24 tablet 3 acetaminophen (TYLENOL) 500 mg tablet Take 500 mg by mouth every 8 hours as needed. MEDICATION, NON-DATABASE Patient has Medical Marijuana card for pain cycloSPORINE (RESTASIS) 0.05 % ophthalmic emulsion Use 1 Drop in both eyes twice daily. Cholecalciferol, Vitamin D3, 50 mcg (2,000 unit) cap Take by mouth once daily. aspirin 325 mg tablet Take 325 mg by mouth every 4 hours as needed. ibuprofen (MOTRIN) 200 mg tablet Take 200 mg by mouth every 6 hours as needed. Usually 1 tablet once a day No current facility-administered medications for this visit. PAST SURGICAL HISTORY Procedure Laterality Date BX/EXC LYMPH NODE OPEN DEEP CERVICAL NODE Right 09/30/2015 LIG/TRNSXJ FLP TUBE ABDL/VAG APPR UNI/BI Tubal ligation PAST SURGICAL HISTORY OF 09/13/1999 Posterior colporrhaphy and perineorrhaphy PAST SURGICAL HISTORY OF 09/13/1999 Overlapping sphincter repair PAST SURGICAL HISTORY OF 10/12/1999 Incision and drainage of abscess of perineum. Loop colostomy. Disimpaction. PAST SURGICAL HISTORY OF 01/19/2000 Stoma closure with resection and anastomosis. PAST SURGICAL HISTORY OF 06/13/2008 Laparotomy, lysis of adhesions, and gastrostomy tube placement. PAST SURGICAL HISTORY OF 06/02/2014 Hysteroscopy, D and C with hysteroscopic morcellation, removal of a polyp. PAST SURGICAL HISTORY OF 1979 Perineal surgery FAMILY HISTORY Problem Relation Age of Onset Heart Mother Stroke Mother Arthritis Mother other (Brain tumor) Mother Emphysema Father GI Father bleeding ulcers Emphysema Sister Breast Cancer Sister Lymphoma Brother Cancer Maternal Grandmother cancer of the spleen Arthritis Maternal Grandmother Cancer Paternal Grandmother ovarian Asthma Daughter Arthritis Daughter Post-Traumatic Stress Disorder Son Colon Cancer Paternal Aunt Breast Cancer with mets Breast Cancer Paternal Aunt Social History Tobacco Use Smoking status: Former Packs/day: 1.00 Years: 10.00 Pack years: 10.00 Types: Cigarettes Quit date: 08/24/2010 Years since quittin.3 Smokeless tobacco: Never Vaping Use Vaping Use: Never used Substance Use Topics Alcohol use: Yes Comment: 2-3 times a year Drug use: Yes Types: Marijuana Comment: periodic marijuana since diagnosed MEDICAL Objective BP 160/104 Pulse 85 Temp 36.6 C (97.8 F) Resp 20 Wt 66.1 kg (145 lb 12.8 oz) LMP 01/15/2013 SpO2 95% BMI 26.67 kg/m Physical Exam Vitals reviewed. Constitutional: Appearance: Normal appearance. HENT: Head: Normocephalic and atraumatic. Right Ear: Tympanic membrane, ear canal and external ear normal. Left Ear: Tympanic membrane, ear canal and external ear normal. Nose: Congestion present. Mouth/Throat: Mouth: Mucous membranes are moist. Pharynx: Oropharynx is clear. Cardiovascular: Rate and Rhythm: Normal rate and regular rhythm. Heart sounds: Normal heart sounds. Pulmonary: Effort: Pulmonary effort is normal. No respiratory distress. Breath sounds: Wheezing present. No rhonchi. Skin: General: Skin is warm and dry. Neurological: General: No focal deficit present. Mental Status: She is alert. Assessment and Plan ASSESSMENT/PLAN: 1. Bronchitis - ICD9: 490, ICD10: J40 Chest x-ray is clear. Pending radiology read however. Will call if this differs. I did send her an albuterol inhaler for the wheezing. Discussed using plain Mucinex. Also gave her meclizine for the positional vertigo. Discussed the sedation of this. Discussed if she has any worsening symptoms to be seen in the emergency department. Patient and daughter with her agreeable with plan. - XR CHEST 2V FRONTAL/LAT - COVID, FLU A/B + RSV, ROUTINE - 2019 CORONAVIRUS - ROUTINE FLU A/B + RSV Mahogany Gonzalez PA-C documented in this encounter [facility] 12-14-2022 History of Present illness Narrative Diagnosis: 1) Grade 1, stage III follicular lymphoma. HPI: Patient is a 67-year-old female who had an unremarkable past medical history. She appreciated a lump just above right clavicle about a year prior to evaluation. Also noticed over the last year or so prior to presentation she had increasing fatigue and a decrease in aerobic exercise capacity. She underwent a workup fall 2014 that was suggestive of acute Roman-Josue infection/mononucleosis. Originally underwent a FNA of a supraclavicular right-sided lymph node. The pathology yielded a mixture of lymphocytes, probably small lymphocytes and a few large lymphocytes which were negative for metastatic carcinoma but suspicious for possible underlying lymphoproliferative disorder. Underwent excisional lymph node biopsy on 09/30/2015. 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 Flow cytometry analysis done at outside lab revealed a CD10 positive, CD20 positive monoclonal lymphocyte population consistent with follicular, some diffuse large B-cell lymphomas and Burkitt lymphoma. Very active typically, but started experiencing fatigue and marked decrease in exercise capacity due to general fatigue. Appetite had been normal. Previous therapy: 1) BR. Completed treatment 04/15/2016. Presents for ongoing oncologic management. Interim history: She has no complaints today. No acute illnesses since I saw her last year. Appetite is normal. No drenching night sweats. She and her are moving to [facility] this weekend. PMH, medications and allergies as below personally reviewed by me today. Any changes documented in appropriate section. ROS: Constitutional: See above. Neuro: No symptoms of neuropathy. HEENT: No recent change in voice, vision or hearing. Resp: Denies wheeze and hemoptysis. Denies shortness of breath at rest. CVS: Denies exertional chest pain, PND, orthopnea and LE edema. GI: No nausea or vomiting. : Denies dysuria or gross hematuria. No symptoms of bladder outlet obstruction. Endo: Denies hot flashes. Denies polyuria and polydipsia. Denies heat and cold intolerance. Derm: No rash. No episodes of jaundice or diffuse pruritus. Heme: Denies unusual bleeding and unexplained bruising. Psych: Normal mood. PHYSICAL EXAM: Vitals: Blood pressure 139/87, pulse 74, temperature 36.6 C (97.9 F), temperature source Temporal, height 157.5 cm (5' 2), weight 66.7 kg (147 lb), last menstrual period 01/15/2013. Well-appearing and in no acute distress. EYES: Sclerae are anicteric bilaterally. NECK: Supple. LYMPHATIC: There is no palpable cervical, supraclavicular, axillary or inguinal adenopathy. RESPIRATORY: Inspiratory breath sounds are of normal intensity in all crooks. No rales, wheezes or rhonchi. CARDIOVASCULAR: Rhythm is regular. ABDOMEN: The abdomen is nondistended. There is no organomegaly. No tenderness. Extremities: No swelling or edema. SKIN: No jaundice or rash. 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 No focal motor weakness. LABS: Component Latest Ref Rng & Units 12/14/2022 WBC 3.70 - 11.00 k/uL 5.74 RBC 3.90 - 5.20 m/uL 4.34 Hemoglobin 11.5 - 15.5 g/dL 12.6 Hematocrit 36.0 - 46.0 % 38.3 MCV 80.0 - 100.0 fL 88.2 MCH 26.0 - 34.0 pg 29.0 MCHC 30.5 - 36.0 g/dL 32.9 RDW-CV 11.5 - 15.0 % 13.5 Platelet Count 150 - 400 k/uL 214 MPV 9.0 - 12.7 fL 9.1 Neut% % 25.5 Abs Neut (ANC) 1.45 - 7.50 k/uL 1.46 Lymph% % 64.8 Abs Lymph 1.00 - 4.00 k/uL 3.72 Slope% % 6.6 Abs Slope <0.87 k/uL 0.38 Eosin% % 2.4 Abs Eosin <0.46 k/uL 0.14 Baso% % 0.5 Abs Baso <0.11 k/uL 0.03 Immature Gran % % 0.2 IMMATURE GRANS (ABS) <0.10 k/uL <0.03 NRBC /100 WBC 0.0 Absolute nRBC <0.01 k/uL <0.01 DTYPE Auto LD 135 - 214 U/L 205 ASSESSMENT/PLAN: (C82.80) Malignant lymphoma, follicular center cell (HCC) (primary encounter diagnosis) Assessmentt: -FLIPI=2 (increased LDH and stage III disease) indicating intermediate risk. -Did not recommend maintenance rituximab due to low lymphocyte count and the potential for longer term immunosuppression. -No exam or laboratory findings to suggest recurrent lymphoma. -Reviewed labs. Plan: -She will establish with a PCP and subsequently an oncologist in the area to which she is moving. She will let us know when she establishes so we can forward records. -No follow-up here scheduled currently. Portions of this documentation were copied and pasted from previous office visit notes in order to provide a cohesive continuity of the history. The note has been reviewed and edited and updated as necessary. I spent a total of 20 minutes on the date of the service which included preparing to see the patient, [id number] patient care, completing clinical documentation, obtaining and/or reviewing separately obtained history, performing a medically appropriate examination, counseling and educating the patient/family/caregiver, ordering medications, tests, or procedures, communicating with other HCPs (not separately reported), and communicating results to the patient/family/caregiver. Shaheen Winn DO documented in this encounter [facility] 09-26-2022 Miscellaneous Notes Called patient to reschedule January app due to change in Dr. Winn's template. Patient states they may be moving out of state and that she would call back to reschedule if needed. documented in this encounter [facility] 08-26-2022 Miscellaneous Notes Done in other phone note Meg De Jesus MD Last Rx: 05/04/22 #90 w/1. Should have available refills, can we resend? Monalisa Lees Ma documented in this encounter [facility] 06-30-2022 History of Present illness Narrative Chief Complaint Patient presents with: Pain: Left hip and left lower back, some radiating pain into left side abdomen off and on HPI Max Roldan is a 67 year old female who presents here today for pain. Pt c/o pain to left lower back and left hip but feels like it occ radiates into the left side abdomen. Denies any injury. She has had the left low back pain x 3-4 weeks. Denies any pain down the leg, no leg numbness or weakness. Uses Tylenol for pain. Has used heat, but was told not to use heat, pt feels that the heat made the pain worse. She has not tried ice yet but is going to. Hx of RA. No XR done. She has had injections in past to right side which helped. Rated pain 5/10 sitting, 8/[address], feels like a deep dull ache. She states that the pain is not as bad in the mornings but seems to worsen as the day goes on. She does use medical marijuana. States the Tylenol and weed are not cutting it. She states that there are some days she can move a certain way with no pain and then other days she does the same movement and will have pain. Has not seen Rheum Dr. Dill since 2019 for her RA. Does not feel like muscle spasm. [facility] for urinary frequency. At evaluation she mentioned left lower back pain x 3 weeks but worsened over last 2 weeks. Went to [facility] to get urine test done to see if she had kidney stone. She had urine sample done that was negative for blood or infection. Denies any urinary sx. Past medical history, appointments, medications, allergies reviewed. Previous Medical History PAST MEDICAL HISTORY Diagnosis Date Arthritis hands, right hip. RA Chronic insomnia 09/30/2020 Enlarged lymph node in neck 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) 11/12/2015 Loss of perineal body, female Papanicolaou smear of cervix with atypical squamous cells of undetermined significance (ASC-US) 2005 cleared Primary hyperparathyroidism (HCC) 01/16/2020 Rectal prolapse Sjogren's disease (HCC) Unspecified intestinal obstruction Recurrent Previous Surgical History PAST SURGICAL HISTORY Procedure Laterality Date BX/EXC LYMPH NODE OPEN DEEP CERVICAL NODE Right 09/30/2015 LIG/TRNSXJ FLP TUBE ABDL/VAG APPR UNI/BI Tubal ligation PAST SURGICAL HISTORY OF 09/13/1999 Posterior colporrhaphy and perineorrhaphy PAST SURGICAL HISTORY OF 09/13/1999 Overlapping sphincter repair PAST SURGICAL HISTORY OF 10/12/1999 Incision and drainage of abscess of perineum. Loop colostomy. Disimpaction. PAST SURGICAL HISTORY OF 01/19/2000 Stoma closure with resection and anastomosis. PAST SURGICAL HISTORY OF 06/13/2008 Laparotomy, lysis of adhesions, and gastrostomy tube placement. PAST SURGICAL HISTORY OF 06/02/2014 Hysteroscopy, D and C with hysteroscopic morcellation, removal of a polyp. PAST SURGICAL HISTORY OF 1979 Perineal surgery Family History FAMILY HISTORY Problem Relation Age of Onset Heart Mother Stroke Mother Arthritis Mother other (Brain tumor) Mother Emphysema Father GI Father bleeding ulcers Emphysema Sister Breast Cancer Sister Lymphoma Brother Cancer Maternal Grandmother cancer of the spleen Arthritis Maternal Grandmother Cancer Paternal Grandmother ovarian Asthma Daughter Arthritis Daughter Post-Traumatic Stress Disorder Son Colon Cancer Paternal Aunt Breast Cancer with mets Breast Cancer Paternal Aunt Patient Allergies ALLERGIES Allergen Reactions Tomatoes Intolerance Current Medications Current Outpatient Medications on File Prior to Visit Medication Sig amitriptyline (ELAVIL) 50 mg tablet Take 1 tablet by mouth at bedtime as needed. For Sedation valACYclovir (VALTREX) 500 mg tablet 2 tabs (2000mg) at onset and repeat in 12h hyoscyamine (LEVSIN) 0.125 mg tablet Take 1 tablet by mouth every 4 hours as needed. acetaminophen (TYLENOL) 500 mg tablet Take 500 mg by mouth every 8 hours as needed. MEDICATION, NON-DATABASE Patient has Medical Marijuana card for pain cycloSPORINE (RESTASIS) 0.05 % ophthalmic emulsion Use 1 Drop in both eyes twice daily. Cholecalciferol, Vitamin D3, 50 mcg (2,000 unit) cap Take by mouth once daily. aspirin 325 mg tablet Take 325 mg by mouth every 4 hours as needed. ibuprofen (MOTRIN) 200 mg tablet Take 200 mg by mouth every 6 hours as needed. Usually 1 tablet once a day No current facility-administered medications on file prior to visit. Social History Social History Tobacco Use Smoking status: Former Packs/day: 1.00 Years: 10.00 Pack years: 10.00 Types: Cigarettes Quit date: 08/24/2010 Years since quittin.8 Smokeless tobacco: Never Vaping Use Vaping Use: Never used Substance Use Topics Alcohol use: Yes Comment: 2-3 times a year Drug use: Yes Types: Marijuana Comment: periodic marijuana since diagnosed MEDICAL EXAM: BP 122/70 Pulse 74 Resp 16 Wt 68.7 kg (151 lb 6.4 oz) LMP 01/15/2013 BMI 27.86 kg/m General Appearance: Well appearing, alert, in no acute distress, well-hydrated, well nourished.. Back: tenderness on palpation to the lower left side back over SI joint Health Maintenance List SHINGRIX VACCINE(1 of 2) Never done COLORECTAL CANCER SCREENING due on 07/06/2017 MAMMOGRAM due on 04/07/2022 ADVANCE DIRECTIVE DISCUSSION Never done DEPRESSION ASSESSMENT due on 06/26/2022 BONE DENSITY due on 2022 DIABETES SCREEN due on 11/24/2022 DTAP,TDAP,TD(2 - Td or Tdap) due on 05/10/2026 LIPID SCREEN due on 05/02/2027 INFLUENZA Completed HEPATITIS C SCREENING Completed HIV SCREENING Completed COVID-19 VACCINE Completed PNEUMOCOCCAL: 65+ Completed Data reviewed None ASSESSMENT/PLAN: 1. Acute left-sided low back pain without sciatica - ICD9: 724.2, ICD10: M54.50 (primary diagnosis) Get XR lower back Start 15 day Prednisone taper Follow up up as needed or if sx do not improve. Will call with xray results. I agree with the Chief Complaint, ROS, and Past Histories independently gathered by the clinical director sales support and the remaining scribed note accurately describes my personal service to the patient. Medical Decision Making: Problems: Low: Acute, uncomplicated illness or injury Data: Unique test(s) ordered: 1 Risk: Moderate: Drug management Medical Decision Making Level: 3 - Low Meg De Jesus MD The documentation for this note was completed by Mimi Phillips Ma acting as scribe for Meg De Jesus MD. June 30, 2022 4:26 PM. Mimi Phillips Ma documented in this encounter [facility] 06-28-2022 Instructions Dione Camacho APRN.[facility] - 06/28/2022 3:05 PM EST ASSESSMENT/PLAN: 1. Urinary frequency - ICD9: 788.41, ICD10: R35.0 (primary diagnosis) acute UA normal in office today. - UA DIP, URINE (POC) 2. Acute left-sided low back pain without sciatica - ICD9: 724.2, ICD10: M54.50 - offered further testing (blood work) to assess kidney function or evaluate for presence of infection in blood-patient declined. - likely musculoskeletal in origin, use ice, avoid heat. - Follow-up with your PCP in 3-5 days if symptoms have not improved or sooner if symptoms worsen - Discussed red flags and need for immediate medical evaluation if any occur. - Discussed supportive care treatment with fluids, rest and analgesia. - Discussed expected course of illness Dione Camacho APRN.[facility] LOW BACK PAIN GENERAL INFORMATION: Low back pain is located in the small of the back. The pain may be related to sprained muscles or ligaments, to muscle spasms, or to herniation of a spinal disc. There are many possible causes of back pain, but the most common causes are gradual wear and tear, physical and emotional stress, and weak or tense muscles from lack of proper exercise. The pain can develop quickly or overnight and may be caused by unusual exertion such as moving furniture or heavy lifting. Low back pain can be severe, and sometimes you may be unable to move without pain. INSTRUCTIONS: 1. During the first 24 hours, apply ice packs to your back for 10-20 minutes 3 to 4 times a day. Put the ice in a plastic bag and place a towel between the bag of ice and your skin. After 24 hours, apply heat to your back with a heating pad set on low or a warm water bottle for 30 minutes every 3 to 4 hours. A gentle massage and warm showers may also be helpful. 2. Stay in bed for 1 to 2 days. Then begin normal activities as you can tolerate without causing pain. 3. Bend at the hips and knees; never bend from the waist only. Lift with your legs, not your back. 4. Sleep on a firm mattress or put a to 1 inch piece of plywood between the mattress and box springs. Do not use a waterbed because it does not support your back correctly. Sleep with a pillow under your knees or sleep on your side with your knees bent. 5. Wear low-heeled shoes. 6. If you are overweight, losing weight will help prevent another attack. 7. Begin a program of back exercises to prevent future episodes of pain. Walking, swimming, and bicycling are good exercise. Avoid exercises that put stress on the back, such as rowing and jogging. CONTACT YOUR DOCTOR OR RETURN TO THE ED IF: 1. You have shooting pains into your buttocks, groin, or legs. 2. You have difficulty urinating or lose control of bowel or bladder function. 3. You have numbness or weakness in your legs or feet. documented in this encounter [facility] 06-28-2022 History of Present illness Narrative This note was created using Agaririter. Subjective Max Roldan is a 67 year old female. She has been having left lower back pain for the past 3 weeks. It has been worse in the past 2 weeks since Dot. She has been taking tylenol. She has a history of rheumatoid arthritis. She has not had a fever today. She denies any known back injury but states the pain started after she was cleaning at home. She wants to have a urine sample checked to see if she has a kidney infection. Review of Systems Constitutional: Negative for fever. Respiratory: Negative. Cardiovascular: Negative. Gastrointestinal: Negative for abdominal pain, diarrhea and nausea. Genitourinary: Negative for dysuria, frequency and hematuria. Musculoskeletal: Positive for back pain. Skin: Negative for color change and rash. Objective BP 148/86 Pulse 79 Temp 36.8 C (98.3 F) (Tympanic) Resp 18 Wt 66.8 kg (147 lb 3.2 oz) LMP 01/15/2013 SpO2 100% BMI 27.09 kg/m PAST MEDICAL HISTORY Diagnosis Date Arthritis hands, right hip. RA Chronic insomnia 09/30/2020 Enlarged lymph node in neck 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) 11/12/2015 Loss of perineal body, female Papanicolaou smear of cervix with atypical squamous cells of undetermined significance (ASC-US) 2004 cleared Primary hyperparathyroidism (HCC) 01/16/2020 Rectal prolapse Sjogren's disease (HCC) Unspecified intestinal obstruction Recurrent PAST SURGICAL HISTORY Procedure Laterality Date BX/EXC LYMPH NODE OPEN DEEP CERVICAL NODE Right 09/30/2015 LIG/TRNSXJ FLP TUBE ABDL/VAG APPR UNI/BI Tubal ligation PAST SURGICAL HISTORY OF 09/13/1999 Posterior colporrhaphy and perineorrhaphy PAST SURGICAL HISTORY OF 09/13/1999 Overlapping sphincter repair PAST SURGICAL HISTORY OF 10/12/1999 Incision and drainage of abscess of perineum. Loop colostomy. Disimpaction. PAST SURGICAL HISTORY OF 01/19/2000 Stoma closure with resection and anastomosis. PAST SURGICAL HISTORY OF 06/13/2008 Laparotomy, lysis of adhesions, and gastrostomy tube placement. PAST SURGICAL HISTORY OF 06/02/2014 Hysteroscopy, D and C with hysteroscopic morcellation, removal of a polyp. PAST SURGICAL HISTORY OF 1979 Perineal surgery ALLERGIES Tomatoes MEDICATIONS amitriptyline (ELAVIL) 50 mg tablet Take 1 tablet by mouth at bedtime as needed. For Sedation valACYclovir (VALTREX) 500 mg tablet 2 tabs (2000mg) at onset and repeat in 12h hyoscyamine (LEVSIN) 0.125 mg tablet Take 1 tablet by mouth every 4 hours as needed. acetaminophen (TYLENOL) 500 mg tablet Take 500 mg by mouth every 8 hours as needed. MEDICATION, NON-DATABASE Patient has Medical Marijuana card for pain cycloSPORINE (RESTASIS) 0.05 % ophthalmic emulsion Use 1 Drop in both eyes twice daily. Cholecalciferol, Vitamin D3, 50 mcg (2,000 unit) cap Take by mouth once daily. aspirin 325 mg tablet Take 325 mg by mouth every 4 hours as needed. ibuprofen (MOTRIN) 200 mg tablet Take 200 mg by mouth every 6 hours as needed. Usually 1 tablet once a day FAMILY HISTORY Problem Relation Age of Onset Heart Mother Stroke Mother Arthritis Mother other (Brain tumor) Mother Emphysema Father GI Father bleeding ulcers Emphysema Sister Breast Cancer Sister Lymphoma Brother Cancer Maternal Grandmother cancer of the spleen Arthritis Maternal Grandmother Cancer Paternal Grandmother ovarian Asthma Daughter Arthritis Daughter Post-Traumatic Stress Disorder Son Colon Cancer Paternal Aunt Breast Cancer with mets Breast Cancer Paternal Aunt Social History Tobacco Use Smoking status: Former Packs/day: 1.00 Years: 10.00 Pack years: 10.00 Types: Cigarettes Quit date: 08/24/2010 Years since quittin.8 Smokeless tobacco: Never Vaping Use Vaping Use: Never used Substance Use Topics Alcohol use: Yes Comment: 2-3 times a year Drug use: Yes Types: Marijuana Comment: periodic marijuana since diagnosed MEDICAL Physical Exam Vitals and nursing note reviewed. Constitutional: Appearance: Normal appearance. Cardiovascular: Rate and Rhythm: Normal rate and regular rhythm. Heart sounds: Normal heart sounds. Pulmonary: Effort: Pulmonary effort is normal. No respiratory distress. Breath sounds: Normal breath sounds. No wheezing or rales. Abdominal: General: There is no distension. Palpations: Abdomen is soft. There is no mass. Tenderness: There is no abdominal tenderness. There is no right CVA tenderness, left CVA tenderness or guarding. Skin: General: Skin is warm and dry. Findings: No erythema or rash. Neurological: Mental Status: She is alert. Assessment and Plan ASSESSMENT/PLAN: 1. Urinary frequency - ICD9: 788.41, ICD10: R35.0 (primary diagnosis) acute UA normal in office today. - UA DIP, URINE (POC) 2. Acute left-sided low back pain without sciatica - ICD9: 724.2, ICD10: M54.50 - offered further testing (blood work) to assess kidney function or evaluate for presence of infection in blood-patient declined. - likely musculoskeletal in origin, use ice, avoid heat. - Follow-up with your PCP in 3-5 days if symptoms have not improved or sooner if symptoms worsen - Discussed red flags and need for immediate medical evaluation if any occur. - Discussed supportive care treatment with fluids, rest and analgesia. - Discussed expected course of illness Dione Camacho APRN.[employer] documented in this encounter [facility] 05-04-2022 Miscellaneous Notes Refilled at office visit today. Mimi Phillips Ma documented in this encounter [facility] 05-04-2022 History of Present illness Narrative Chief Complaint Patient presents with: Physical Immunizations: Flu vaccination HPI Max Roldan is a 66 year old female who presents here today for 6 month follow up. Is planning to move out of state in the next year or so, unsure if they are going to be in the office again or not. Is thinking about [place], [place], or [facility]. Gets mammogram through [facility] through [facility]. No bowel, Gi, or urinary issues. Hx of rectal prolapse. Uses Levsin 1 pill about 3 x a week if that. I will take over the Levsin when refill is needed. No chest pains, dizziness, or SOB. Lipid: She admits she has not been eating well or as active since intermediate. Cholesterol is up from last time. 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 Pain & Insomnia: RA; No longer follows with Rheum at [facility]. Not on any medications. Uses Medical Marijuana for insomnia and pain. Uses Amitriptyline 50 mg daily at bedtime prn, Tylenol 500 mg prn. Graves disease: Was seeing Dr. Friend at [facility], never followed back up. Follicular lymphoma: Following with Hem/Onc Dr. Winn. Had COVID in December, only had a one day that was really bad but otherwise felt fine. Skin: Would like to see Derm for some white patches on the skin, white freckles, and eczema. Is willing to travel to another [facility] location. Past medical history, appointments, medications, allergies reviewed. Previous Medical History PAST MEDICAL HISTORY Diagnosis Date Arthritis hands, right hip. RA Chronic insomnia 09/30/2020 Enlarged lymph node in neck 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) 11/12/2015 Loss of perineal body, female Papanicolaou smear of cervix with atypical squamous cells of undetermined significance (ASC-US) 2004 cleared Primary hyperparathyroidism (HCC) 01/16/2020 Rectal prolapse Sjogren's disease (HCC) Unspecified intestinal obstruction Recurrent Previous Surgical History PAST SURGICAL HISTORY Procedure Laterality Date BX/EXC LYMPH NODE OPEN DEEP CERVICAL NODE Right 09/30/2015 LIG/TRNSXJ FLP TUBE ABDL/VAG APPR UNI/BI Tubal ligation PAST SURGICAL HISTORY OF 09/13/1999 Posterior colporrhaphy and perineorrhaphy PAST SURGICAL HISTORY OF 09/13/1999 Overlapping sphincter repair PAST SURGICAL HISTORY OF 10/12/1999 Incision and drainage of abscess of perineum. Loop colostomy. Disimpaction. PAST SURGICAL HISTORY OF 01/19/2000 Stoma closure with resection and anastomosis. PAST SURGICAL HISTORY OF 06/13/2008 Laparotomy, lysis of adhesions, and gastrostomy tube placement. PAST SURGICAL HISTORY OF 06/02/2014 Hysteroscopy, D and C with hysteroscopic morcellation, removal of a polyp. PAST SURGICAL HISTORY OF 1979 Perineal surgery Family History FAMILY HISTORY Problem Relation Age of Onset Heart Mother Stroke Mother Arthritis Mother other (Brain tumor) Mother Emphysema Father GI Father bleeding ulcers Emphysema Sister Breast Cancer Sister Lymphoma Brother Cancer Maternal Grandmother cancer of the spleen Arthritis Maternal Grandmother Cancer Paternal Grandmother ovarian Asthma Daughter Arthritis Daughter Post-Traumatic Stress Disorder Son Colon Cancer Paternal Aunt Breast Cancer with mets Breast Cancer Paternal Aunt Patient Allergies ALLERGIES Allergen Reactions Tomatoes Intolerance Current Medications Current Outpatient Medications on File Prior to Visit Medication Sig amitriptyline (ELAVIL) 50 mg tablet TAKE 1 TABLET BY MOUTH AT BEDTIME NEEDED. FOR SEDATION acetaminophen (TYLENOL) 500 mg tablet Take 500 mg by mouth every 8 hours as needed. valACYclovir (VALTREX) 500 mg tablet 2 tabs (2000mg) at onset and repeat in 12h hyoscyamine (LEVSIN) 0.125 mg tablet Take 1 tablet by mouth every 4 hours as needed. MEDICATION, NON-DATABASE Patient has Medical Marijuana card for pain cycloSPORINE (RESTASIS) 0.05 % ophthalmic emulsion Use 1 Drop in both eyes twice daily. Cholecalciferol, Vitamin D3, 50 mcg (2,000 unit) cap Take by mouth once daily. aspirin 325 mg tablet Take 325 mg by mouth every 4 hours as needed. ibuprofen (MOTRIN) 200 mg tablet Take 200 mg by mouth every 6 hours as needed. Usually 1 tablet once a day (Patient not taking: Reported on 09/30/2020 ) No current facility-administered medications on file prior to visit. Social History Social History Tobacco Use Smoking status: Former Packs/day: 1.00 Years: 10.00 Pack years: 10.00 Types: Cigarettes Quit date: 08/24/2010 Years since quittin.7 Smokeless tobacco: Never Vaping Use Vaping Use: Never used Substance Use Topics Alcohol use: Yes Comment: 2-3 times a year Drug use: Yes Types: Marijuana Comment: periodic marijuana since diagnosed MEDICAL EXAM: BP 126/74 Pulse 78 Resp 16 Wt 64.9 kg (143 lb) LMP 01/15/2013 BMI 26.32 kg/m General Appearance: Well appearing, alert, in no acute distress, well-hydrated, well nourished.. Lungs: Lungs clear to auscultation. No wheezing, rhonchi, rales.. Heart: RRR without murmur, gallop, or rubs. No ectopy. Health Maintenance List PNEUMOCOCCAL(1 - PCV) Never done SHINGRIX VACCINE(1 of 2) Never done COLORECTAL CANCER SCREENING due on 07/06/2017 DEPRESSION ASSESSMENT Never done COVID-19 VACCINE(3 - Booster for Lottie series) due on 07/19/2021 INFLUENZA(1) due on 02/24/2022 MAMMOGRAM due on 04/07/2022 LIPID SCREEN due on 05/11/2022 DIABETES SCREEN due on 11/24/2022 PAP TESTING due on 03/20/2023 HPV TESTING due on 03/20/2023 DTAP,TDAP,TD(2 - Td or Tdap) due on 05/10/2026 HEPATITIS C SCREENING Completed HIV SCREENING Completed Data reviewed Appointment on 05/02/2022 Component Date Value Cholesterol, Total 05/02/2022 263 (A) Triglyceride 05/02/2022 225 (A) HDL Cholesterol 05/02/2022 57 Non HDL Cholesterol 05/02/2022 206 (A) Fasting Time 05/02/2022 12 VLDL Cholesterol 05/02/2022 45 (A) TC:HDL Ratio 05/02/2022 4.61 LDL Cholesterol 05/02/2022 161 (A) LDL:HDL Ratio 05/02/2022 2.82 (A) ASSESSMENT/PLAN: 1. Wellness examination - ICD9: V70.0, ICD10: Z00.00 (primary diagnosis) - Counseled on healthy diet and regular exercise - Discussed need and benefit for weight loss. BMI 26.32 kg/(m^2) - Follow up for annual exam in one year 2. Chronic insomnia - ICD9: 780.52, ICD10: F51.04 Continue current regimen - AMITRIPTYLINE 50 MG TABLET 3. Need for influenza vaccination - ICD9: V04.81, ICD10: Z23 - INFLUENZA VACCINE QUADRIVALENT 6 MO - 64 YRS IM 4. Need for COVID-19 vaccine - ICD9: V04.89, ICD10: Z23 - PFIZER-BIONTKeclon COVID-19 BIVALENT BOOSTER VACCINE, AGE 12+ YR 5. Need for pneumococcal vaccine - ICD9: V03.82, ICD10: Z23 - PNEUMOCOCCAL VACCINE (PREVNAR 20) 6. Eczema, unspecified type - ICD9: 692.9, ICD10: L30.9 - discussed skin care of rash - follow up if symptoms persist or worsen. - consult Derm 7. Irregular bowel habits - ICD9: 569.89, ICD10: R19.8 Continue current medications. 8. Diarrhea, unspecified type - ICD9: 787.91, ICD10: R19.7 Continue current medications. 9. Recurrent cold sores - ICD9: 054.9, ICD10: B00.1 Continue current medications. 10. 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 Adjustment disorder with depressed mood - ICD9: 309.0, ICD10: F43.21 Continue current regimen 12. Rheumatoid arthritis involving multiple sites with positive rheumatoid factor (HCC) - ICD9: 714.0, ICD10: M05.79 Continue current regimen Follow up in 1 year or sooner if needed. I agree with the Chief Complaint, ROS, and Past Histories independently gathered by the clinical director sales support and the remaining scribed note accurately describes my personal service to the patient. Meg De eJsus MD The documentation for this note was completed by Mimi Phillips Ma acting as scribe for Meg De Jesus MD. May 04, 2022 11:57 AM. Mimi Phillips Ma documented in this encounter [facility] 02-17-2022 History of Present illness Narrative Diagnosis: 1) Grade 1, stage III follicular lymphoma. HPI: Patient is a 66-year-old female who had an unremarkable past medical history. She appreciated a lump just above right clavicle about a year prior to evaluation. Also noticed over the last year or so prior to presentation she had increasing fatigue and a decrease in aerobic exercise capacity. She underwent a workup fall 2014 that was suggestive of acute Roman-Josue infection/mononucleosis. Originally underwent a FNA of a supraclavicular right-sided lymph node. The pathology yielded a mixture of lymphocytes, probably small lymphocytes and a few large lymphocytes which were negative for metastatic carcinoma but suspicious for possible underlying lymphoproliferative disorder. Underwent excisional lymph node biopsy on 09/30/2015. 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 Flow cytometry analysis done at outside lab revealed a CD10 positive, CD20 positive monoclonal lymphocyte population consistent with follicular, some diffuse large B-cell lymphomas and Burkitt lymphoma. Very active typically, but started experiencing fatigue and marked decrease in exercise capacity due to general fatigue. Appetite had been normal. Previous therapy: 1) BR. Completed treatment 04/15/2016. Presents for ongoing oncologic management. Interim history: She has no complaints today. She feels well and is active. Feels her energy has fully recovered to normal. She has no constitutional symptoms. She has had no acute illnesses in the last year. PMH, medications and allergies as below personally reviewed by me today. Any changes documented in appropriate section. ROS: Constitutional: See above. Neuro: No symptoms of neuropathy. HEENT: No recent change in voice, vision or hearing. Resp: Denies wheeze and hemoptysis. Denies shortness of breath at rest. CVS: Denies exertional chest pain, PND, orthopnea and LE edema. GI: No nausea or vomiting. : Denies dysuria or gross hematuria. No symptoms of bladder outlet obstruction. Endo: Denies hot flashes. Denies polyuria and polydipsia. Denies heat and cold intolerance. Musculoskeletal: See above. Derm: No rash. No episodes of jaundice or diffuse pruritus. Heme: Denies unusual bleeding and unexplained bruising. Psych: Normal mood. PHYSICAL EXAM: Vitals: Blood pressure 135/80, pulse 86, temperature 36.9 C (98.4 F), height 157 cm (5' 1.81), weight 64.4 kg (142 lb), last menstrual period 01/15/2013, SpO2 97 %. Well-appearing and in no acute distress. EYES: Sclerae are anicteric bilaterally. NECK: Supple. LYMPHATIC: There is no palpable cervical, supraclavicular, axillary or inguinal adenopathy. RESPIRATORY: Inspiratory breath sounds are of normal intensity in all crooks. No rales, wheezes or rhonchi. CARDIOVASCULAR: Rhythm is regular. ABDOMEN: The abdomen is nondistended. There is no organomegaly. No tenderness. Extremities: No swelling or edema. SKIN: No jaundice or rash. 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 No focal motor weakness. LABS: Component Latest Ref Rng & Units 01/25/2021 02/17/2022 WBC 3.70 - 11.00 k/uL 6.09 7.80 RBC 3.90 - 5.20 m/uL 4.66 4.81 Hemoglobin 11.5 - 15.5 g/dL 13.3 13.8 Hematocrit 36.0 - 46.0 % 39.9 41.7 MCV 80.0 - 100.0 fL 85.6 86.7 MCH 26.0 - 34.0 pg 28.5 28.7 MCHC 30.5 - 36.0 g/dL 33.3 33.1 RDW-CV 11.5 - 15.0 % 13.0 12.7 Platelet Count 150 - 400 k/uL 213 280 MPV 9.0 - 12.7 fL 8.5 (L) 9.0 Neut% % 42.0 50.7 Abs Neut (ANC) 1.45 - 7.50 k/uL 2.55 3.96 Lymph% % 47.5 41.0 Abs Lymph 1.00 - 4.00 k/uL 2.89 3.20 Slope% % 8.2 6.5 Abs Slope <0.87 k/uL 0.50 0.51 Eosin% % 2.0 1.2 Abs Eosin <0.46 k/uL 0.12 0.09 Baso% % 0.3 0.3 Abs Baso <0.11 k/uL <0.03 <0.03 Immature Gran % % 0.3 IMMATURE GRANS (ABS) <0.10 k/uL <0.03 NRBC /100 WBC 0.0 Absolute nRBC <0.01 k/uL <0.01 <0.01 DTYPE Auto Nucleated Reds 0 /100 WBC 0.0 Diff Type Auto Diff ASSESSMENT/PLAN: (C82.80) Malignant lymphoma, follicular center cell (HCC) (primary encounter diagnosis) Assessmentt: -FLIPI=2 (increased LDH and stage III disease) indicating intermediate risk. -Did not recommend maintenance rituximab due to low lymphocyte count and the potential for longer term immunosuppression. -No exam or laboratory findings to suggest recurrent lymphoma. -Reviewed labs. Plan: -OV in about a year. Portions of this documentation were copied and pasted from previous office visit notes in order to provide a cohesive continuity of the history. The note has been reviewed and edited and updated as necessary. Shaheen Winn DO documented in this encounter [facility] 10-08-2015 History of Past i llness Narrative Problem Noted Date Resolved Date Malignant lymphoma, 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/0710/24/2016 ACROCHORDON 06/04/2007 08/18/2011 SEBORRHEIC KERATOSIS 06/04/2007 08/18/2011 Enthesopathy of hip region 03/13/200608/18 Other bursitis disorders 03/13/2006 012 Overview: Piriformis documented as of this encounter (statuses as of 02/16/2022) [facility] History of Past illness Narrative* Problem Noted Date Resolved Date Malignant lymphoma, 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/0710/24/2016 ACROCH[place]ON 06/04/2007 08/18/2011 SEBORRHEIC KERATOSIS 06/04/2007 08/18/2011 Enthesopathy of hip region 03/13/200608/18 Other bursitis disorders 03/13/2006 012 Overview: Piriformis documented as of this encounter (statuses as of 02/17/2022) [facility] History of Past illness Narrative* Problem Noted Date Resolved Date Malignant lymphoma, 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/0710/24/2016 [place] 06/04/2007 08/18/2011 SEBORRHEIC KERATOSIS 06/04/2007 08/18/2011 Enthesopathy of hip region 03/13/200608/18 Other bursitis disorders 03/13/2006 012 Overview: Piriformis documented as of this encounter (statuses as of 03/02/2022) [facility] History of Past illness Narrative* Problem Noted Date Resolved Date Malignant lymphoma, 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/0710/24/2016 [place] 06/04/2007 08/18/2011 SEBORRHEIC KERATOSIS 06/04/2007 08/18/2011 Enthesopathy of hip region 03/13/200608/18 Other bursitis disorders 03/13/2006 012 Overview: Piriformis documented as of this encounter (statuses as of 04/22/2022) [facility] History of Past illness Narrative* Problem Noted Date Resolved Date Malignant lymphoma, 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/0710/24/2016 [place] 06/04/2007 08/18/2011 SEBORRHEIC KERATOSIS 06/04/2007 08/18/2011 Enthesopathy of hip region 03/13/200608/18 Other bursitis disorders 03/13/2006 012 Overview: Piriformis documented as of this encounter (statuses as of 05/04/2022) [facility] of Past illness Narrative* Problem Noted Date Resolved Date Malignant lymphoma, 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/0710/24/2016 [place] 06/04/2007 08/18/2011 SEBORRHEIC KERATOSIS 06/04/2007 08/18/2011 Enthesopathy of hip region 03/13/200608/18 Other bursitis disorders 03/13/2006 012 Overview: Piriformis documented as of this encounter (statuses as of 05/04/2022) [facility] of Past illness Narrative* Problem Noted Date Resolved Date Malignant lymphoma, 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/0710/24/2016 [place] 06/04/2007 08/18/2011 SEBORRHEIC KERATOSIS 06/04/2007 08/18/2011 Enthesopathy of hip region 03/13/200608/18 Other bursitis disorders 03/13/2006 012 Overview: Piriformis documented as of this encounter (statuses as of 05/16/2022) [facility] of [facility] Narrative* Problem Noted Date Resolved Date Malignant lymphoma, 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/0710/24/2016 [place] 06/04/2007 08/18/2011 SEBORRHEIC KERATOSIS 06/04/2007 08/18/2011 Enthesopathy of hip region 03/13/200608/18 Other bursitis disorders 03/13/2006 012 Overview: Piriformis documented as of this encounter (statuses as of 06/30/2022) [facility] Narrative* Problem Noted Date Resolved Date Malignant lymphoma, 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/0710/24/2016 [place] 06/04/2007 08/18/2011 SEBORRHEIC KERATOSIS 06/04/2007 08/18/2011 Enthesopathy of hip region 03/13/200608/18 Other bursitis disorders 03/13/2006 012 Overview: Piriformis documented as of this encounter (statuses as of 07/01/2022) [facility] of [facility] Narrative* Problem Noted Date Resolved Date Malignant lymphoma, 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/0710/24/2016 [place] 06/04/2007 08/18/2011 SEBORRHEIC KERATOSIS 06/04/2007 08/18/2011 Enthesopathy of hip region 03/13/200608/18 Other bursitis disorders 03/13/2006 012 Overview: Piriformis documented as of this encounter (statuses as of 08/26/2022) [place] [id number] History of Past illness Narrative* Problem Noted Date Resolved Date Malignant lymphoma, 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/0710/24/2016 [place] 06/04/2007 08/18/2011 SEBORRHEIC KERATOSIS 06/04/2007 08/18/2011 Enthesopathy of hip region 03/13/200608/18 Other bursitis disorders 03/13/2006 012 Overview: Piriformis documented as of this encounter (statuses as of 09/26/2022) [facility] History of Past illness Narrative* Problem Noted Date Resolved Date Malignant lymphoma, 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/0710/24/2016 [place] 06/04/2007 08/18/2011 SEBORRHEIC KERATOSIS 06/04/2007 08/18/2011 Enthesopathy of hip region 03/13/200608/18 Other bursitis disorders 03/13/2006 012 Overview: Piriformis documented as of this encounter (statuses as of 12/14/2022) [facility] History of Past illness Narrative* Problem Noted Date Resolved Date Malignant lymphoma, 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/0710/24/2016 [place] 06/04/2007 08/18/2011 SEBORRHEIC KERATOSIS 06/04/2007 08/18/2011 Enthesopathy of hip region 03/13/200608/18 Other bursitis disorders 03/13/2006 012 Overview: Piriformis documented as of this encounter (statuses as of 12/17/2022) [facility] History of Past illness Narrative* Problem Noted Date Resolved Date Malignant lymphoma, 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/0710/24/2016 [place] 06/04/2007 08/18/2011 SEBORRHEIC KERATOSIS 06/04/2007 08/18/2011 Enthesopathy of hip region 03/13/200608/18 Other bursitis disorders 03/13/2006 012 Overview: Piriformis documented as of this encounter (statuses as of 12/20/2022) [facility] History of Past illness Narrative* Problem Noted Date Diagnosed Date Resolved Date Malignant lymphoma, 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/08/2015 10/24/2016 [place] 06/04/2007 08/18/2011 SEBORRHEIC KERATOSIS 06/04/2007 012 Enthesopathy of hip region 03/13/2006 0 08/18/2011 Other bursitis disorders 03/13/2006 Overview: Piriformis documented as of this encounter (statuses as of 01/10/2023) [facility] of Past illness Narrative* Problem Noted Date Diagnosed Date Resolved Date Malignant lymphoma, 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/08/2015 10/24/2016 [place] 06/04/2007 08/18/2011 SEBORRHEIC KERATOSIS 06/04/2007 012 Enthesopathy of hip region 03/13/2006 0 08/18/2011 Other bursitis disorders 03/13/2006 Overview: Piriformis documented as of this encounter (statuses as of 05/02/2023) [facility] 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 [facility] 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 [facility] Diagnosis Screening for lipid disorders- Primary [facility] Diagnosis Wellness examination- Primary Chronic insomnia Insomnia, unspecified Need for influenza vaccination Need for prophylactic vaccination and inoculation against influenza Need for COVID-19 vaccine Need for pneumococcal vaccine Need for prophylactic vaccination against streptococcus pneumoniae (pneumococcus) Eczema, unspecified type Irregular bowel habits Other specified disorder of intestines Diarrhea, unspecified type Recurrent cold sores Herpes simplex without mention of complication 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 Adjustment disorder with depressed mood Rheumatoid arthritis involving multiple sites with positive rheumatoid factor (HCC) [facility] Diagnosis Encounter for screening mammogram for breast cancer documented in this encounter [facility]* Diagnosis Urinary frequency- Primary Acute left-sided low back pain without sciatica documented in this encounter [facility] note* Diagnosis Acute left-sided low back pain without sciatica- Primary documented in this encounter [facility] note* Diagnosis Chronic insomnia Insomnia, unspecified documented in this encounter [facility] note* Diagnosis 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 documented in this encounter [facility] note* Diagnosis Bronchitis- Primary Bronchitis, not specified as acute or chronic documented in this encounter [facility] note* Diagnosis Encounter for screening mammogram for breast cancer documented in this encounter [facility] note* Diagnosis Acute cough documented in this encounter [facility] note* Diagnosis Acute left-sided low back pain without sciatica documented in this encounter [facility] note* Diagnosis Encounter for screening mammogram for breast cancer documented in this encounter [facility] note* Diagnosis 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 documented in this encounter [facility] for referral (narrative)* Diagnostic Procedure Only (Routine) - Pending Review Specialty Diagnoses / Procedures Referred By Parmjit keith Referred To Contact [facility] Diagnoses Encounter for screening mammogram for breast cancer Procedures COLTON SCREENING SCREENING MAMMOGRAPHY BI 2-VIEW BREAST INC CAD Meg De Jesus MD [address] [place] [address] [facility] [address] [place] [id number] Referral ID Status Reason Start Date Expiration Date Visits Requested Visits Authorized [id number] Pending Review Auto-Generat ed Referral 2 06/10/2023 1 1 [facility] for referral (narrative)* Diagnostic Procedure Only (Routine) - Closed Specialty Diagnoses / Procedures Referred By Parmjit keith Referred To Contact XR IMAGING Diagnoses Acute left-sided low back pain without sciatica Procedures XR LUMBAR GENERAL 3V AP/LAT/L5-S1 RADEX SPINE LUMBOSACRAL 2/3 VIEWS Meg De Jesus MD [address] [place] [address] [facility] Referral ID Status Reason Start Date Expiration Date V isits Requested Visits Authorized [id number] Closed Auto-Generate d Referral 06/30/2022 07/30/2023 1 1 [facility] for referral (narrative)* Diagnostic Procedure Only (Routine) - Pending Review Specialty Diagnoses / Procedures Referred By Parmjit keith Referred To Contact [facility] Diagnoses Encounter for screening mammogram for breast cancer Procedures COLTON SCREENING SCREENING MAMMOGRAPHY BI 2-VIEW BREAST INC CAD Meg De Jesus MD [address] [place] [address] [facility] [address] [place] [address] Referral ID Status Reason Start Date Expiration Date Visits Requested Visits Authorized [id number] Pending Review Auto-Generat ed Referral 04/26/2023 05/25/2024 1 1 [facility] for referral (narrative)* Diagnostic Procedure Only (Routine) - Closed Specialty Diagnoses / Procedures Referred By Parmjit keith Referred To Contact XR IMAGING Diagnoses Acute left-sided low back pain without sciatica Procedures XR LUMBAR GENERAL 3V AP/LAT/L5-S1 RADEX SPINE LUMBOSACRAL 2/3 VIEWS Meg De Jesus MD [address] [place] [address] [place] [address] Referral ID Status Reason Start Date Expiration Date V isits Requested Visits Authorized [id number] Closed Auto-Generate d Referral 06/30/2022 07/30/2023 1 1 [facility] for referral (narrative)* Diagnostic Procedure Only (Routine) - New Request Specialty Diagnoses / Procedures Referred By Parmjit keith Referred To Contact [facility] Diagnoses Encounter for screening mammogram for breast cancer Procedures COLTON SCREENING W CALVIN SCREENING DIGITAL BREAST TOMOSYNTHESIS BI SCREENING MAMMOGRAPHY BI 2-VIEW BREAST INC CAD Meg De Jesus MD [address] [place] [address] [facility] [address] [place] [address] Referral ID Status Reason Start Date Expiration Date Visits Requested Visits Authorized [id number] New Request Auto-Generat ed Referral 04/03/2024 05/03/2025 1 1 [facility] for visit Narrative* Diagnostic Procedure Only (Routine) - Closed Specialty Diagnoses / Procedures Referred By Parmjit keith Referred To Contact XR IMAGING Diagnoses Acute left-sided low back pain without sciatica Procedures XR LUMBAR GENERAL 3V AP/LAT/L5-S1 RADEX SPINE LUMBOSACRAL 2/3 VIEWS Meg De Jesus MD [address] [place] [address] [place] [address] Referral ID Status Reason Start Date Expiration Date V isits Requested Visits Authorized [id number] Closed Auto-Generate d Referral 06/30/2022 07/30/2023 1 1 [facility] Summary Purpose Family History No Family History Records FoundNo Family History Records FoundNo Family History Records Found Advance Directives No Advanced Directives Records FoundDocuments on File Type Date Recorded 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 Advance Directive(s) 06/03/2014 12:01 PM Advance Directive(s) 06/03/2014 12:04 PM Documents on File Type Date Recorded 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 Advance Directive(s) 06/03/2014 12:01 PM Advance Directive(s) 06/03/2014 12:04 PM Documents on File Type Date Recorded 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 Advance Directive(s) 06/03/2014 12:04 PM Advance Directive(s) 06/03/2014 12:01 PM Documents on File Type Date Recorded 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 Advance Directive(s) 06/03/2014 12:04 PM Advance Directive(s) 06/03/2014 12:01 PM Reason for Referral Specialty Diagnoses / Procedures Referred By Parmjit keith Referred To Contact Dermatology Diagnoses Eczema, unspecified type Procedures CONSULT TO DERMATOLOGY Meg De Jesus MD [address] [facility] [place] [address] Referral ID Status Reason Start Date Expiration Date Visits Requested Visits Authorized [id number] Ref Not Required PCP Requested Referral 05/04/2022 05/04/2023 1 1 Additional Source Comments INFORMATION SOURCE (unrecogn ized section and content) DATE CREATED AUTHOR 12/21/2017 [facility] DATE CREATED AUTHOR AUTHOR'S ORGANIZ ATION 03/20/2018 [facility] ([place]) DATE CREATED AUTHOR AUTHOR'S ORGANIZ ATION 01/23/2025 [facility] Source Comments (unrecognize d section and content) In the event this informatio n is protected by the Federal Confidentiality of Alcohol and Drug Abuse Patient Records regulations: The Federal rules restrict any use of the information to criminally investigate or prosecute any alcohol or drug abuse patient.[facility] the event this information is protected by the Federal Confidentiality of Alcohol and Drug Abuse Patient Records regulations: The Federal rules restrict any use of the information to criminally investigate or prosecute any alcohol or drug abuse patient.[facility] the event this information is protected by the Federal Confidentiality of Alcohol and Drug Abuse Patient Records regulations: The Federal rules restrict any use of the information to criminally investigate or prosecute any alcohol or drug abuse patient.[facility] the event this information is protected by the Federal Confidentiality of Alcohol and Drug Abuse Patient Records regulations: The Federal rules restrict any use of the information to criminally investigate or prosecute any alcohol or drug abuse patient.[facility] the event this information is protected by the Federal Confidentiality of Alcohol and Drug Abuse Patient Records regulations: The Federal rules restrict any use of the information to criminally investigate or prosecute any alcohol or drug abuse patient.[facility] the event this information is protected by the Federal Confidentiality of Alcohol and Drug Abuse Patient Records regulations: The Federal rules restrict any use of the information to criminally investigate or prosecute any alcohol or drug abuse patient.[facility] the event this information is protected by the Federal Confidentiality of Alcohol and Drug Abuse Patient Records regulations: The Federal rules restrict any use of the information to criminally investigate or prosecute any alcohol or drug abuse patient.[facility] the event this information is protected by the Federal Confidentiality of Alcohol and Drug Abuse Patient Records regulations: The Federal rules restrict any use of the information to criminally investigate or prosecute any alcohol or drug abuse patient.[facility] the event this information is protected by the Federal Confidentiality of Alcohol and Drug Abuse Patient Records regulations: The Federal rules restrict any use of the information to criminally investigate or prosecute any alcohol or drug abuse patient.[facility] the event this information is protected by the Federal Confidentiality of Alcohol and Drug Abuse Patient Records regulations: The Federal rules restrict any use of the information to criminally investigate or prosecute any alcohol or drug abuse patient.[facility] the event this information is protected by the Federal Confidentiality of Alcohol and Drug Abuse Patient Records regulations: The Federal rules restrict any use of the information to criminally investigate or prosecute any alcohol or drug abuse patient.[facility] the event this information is protected by the Federal Confidentiality of Alcohol and Drug Abuse Patient Records regulations: The Federal rules restrict any use of the information to criminally investigate or prosecute any alcohol or drug abuse patient.[facility] the event this information is protected by the Federal Confidentiality of Alcohol and Drug Abuse Patient Records regulations: The Federal rules restrict any use of the information to criminally investigate or prosecute any alcohol or drug abuse patient.[facility] the event this information is protected by the Federal Confidentiality of Alcohol and Drug Abuse Patient Records regulations: The Federal rules restrict any use of the information to criminally investigate or prosecute any alcohol or drug abuse patient.[facility] the event this information is protected by the Federal Confidentiality of Alcohol and Drug Abuse Patient Records regulations: The Federal rules restrict any use of the information to criminally investigate or prosecute any alcohol or drug abuse patient.[facility] the event this information is protected by the Federal Confidentiality of Alcohol and Drug Abuse Patient Records regulations: The Federal rules restrict any use of the information to criminally investigate or prosecute any alcohol or drug abuse patient.[facility] the event this information is protected by the Federal Confidentiality of Alcohol and Drug Abuse Patient Records regulations: The Federal rules restrict any use of the information to criminally investigate or prosecute any alcohol or drug abuse patient.[facility] the event this information is protected by the Federal Confidentiality of Alcohol and Drug Abuse Patient Records regulations: The Federal rules restrict any use of the information to criminally investigate or prosecute any alcohol or drug abuse patient.[facility] the event this information is protected by the Federal Confidentiality of Alcohol and Drug Abuse Patient Records regulations: The Federal rules restrict any use of the information to criminally investigate or prosecute any alcohol or drug abuse patient.[facility] the event this information is protected by the Federal Confidentiality of Alcohol and Drug Abuse Patient Records regulations: The Federal rules restrict any use of the information to criminally investigate or prosecute any alcohol or drug abuse patient.[facility] Care Teams (unrecognized sec tion and content) Rn Neonatal Relationship Specialty Start Date End Date Meg De Jesus MD [address] [place] [address] PCP - General Family Practice 08/18/11 Rn Neonatal Relationship Specialty Start Date End Date Meg De Jesus MD [address] [place] [address] PCP - General Family Practice 08/18/11 Rn Neonatal Relationship Specialty Start Date End Date Meg De Jesus MD [address] [place] [address] PCP - General Family Practice 08/18/11 Rn Neonatal Relationship Specialty Start Date End Date Meg De Jesus MD [address] [place] [address] PCP - General Family Medicine 08/18/11 Rn Neonatal Relationship Specialty Start Date End Date Meg De Jesus MD [address] [place] [address] PCP - General Family Medicine 08/18/11 Rn Neonatal Relationship Specialty Start Date End Date Meg De Jesus MD [address] [facility] [address] PCP - General Family Medicine 08/18/11 Rn Neonatal Relationship Specialty Start Date End Date Meg De Jesus MD [address] [place] [address] PCP - General Family Medicine 08/18/11 Rn Neonatal Relationship Specialty Start Date End Date Meg De Jesus MD [address] [place] [address] PCP - General Family Medicine 08/18/11 Rn Neonatal Relationship Specialty Start Date End Date Meg De Jesus MD [address] [place] [address] PCP - General Family Medicine 08/18/11 Rn Neonatal Relationship Specialty Start Date End Date Meg De Jesus MD [address] [place] [address] PCP - General Family Medicine 08/18/11 Rn Neonatal Relationship Specialty Start Date End Date Meg De Jesus MD [address] [place] [address] PCP - General Family Medicine 08/18/11 Rn Neonatal Relationship Specialty Start Date End Date Meg De Jesus MD [address] [place] [address] PCP - General Family Medicine 08/18/11 Rn Neonatal Relationship Specialty Start Date End Date Meg De Jesus MD [address] [place] [address] PCP - General Family Medicine 08/18/11 Rn Neonatal Relationship Specialty Start Date End Date Meg De Jesus MD [address] [place], [place] [address] PCP - General Family Medicine 08/18/11 Rn Neonatal Relationship Specialty Start Date End Date Meg De Jesus MD [address] [place], [place] [id number] PCP - General Family Medicine 08/18/11 Rn Neonatal Relationship Specialty Start Date End Date Meg De Jesus MD [address] [place], [place] [id number] PCP - General Family Medicine 08/18/11 Rn Neonatal Relationship Specialty Start Date End Date Meg De Jesus MD [address] [place], [place] [id number] PCP - General Family Medicine 08/18/11 Miguel Kapoor APRN.LIVING SUPERVISOR [address] [place], [place] [id number] [employer] Family Medicine 06/11/24 Reason for Visit (unrecogniz ed section and content) Reason Comments Established Patient Reason Onset Date Comments Physical Immunizations 05/04/2022 Flu vaccination Reason Onset Date Comments Refill Request 05/03/2022 Reason Comments Urinary Frequency Frequency, left flan k pain x 2 weeks Reason Comments Pain Left hip and left lo wer back, some radiating pain into left side abdomen off and on Reason Comments Appointment Reason Comments Dizziness Light headed, nausea , cough, sob x 1 week Reason Comments Results Reason Comments Refill Request FOR RECORDS PERTAINING TO PATIENTS WHO ARE OR HAVE BEEN ENROLLED IN A CHEMICAL DEPENDENCY/SUBSTANCEABUSE PROGRAM, SOME INFORMATION MAY BE OMITTED. This clinical summary was aggregated from multiple sources. Caution should be exercised in using it in the provision of clinical care. This summary normalizes information from multiple sources, and as a consequence, information in this document may materially change the coding, format and clinical context of patient data. In addition, data may be omitted in some cases. CLINICAL DECISIONS SHOULD BE BASED ON THE PRIMARY CLINICAL RECORDS. [facility]. provides no warranty or guarantee of the accuracy or completeness of information in this document.
--- OUTSIDE RECORDS SUMMARY | 2025-01-26 10:47 | XMS RPT_ITS | CCD ---
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 Role Phone VelShahzad tabares Unavailable Unavailable [...] Tomatoes; Translations: [TOMATOES] Food Allergy 09-06-2011 Intolerance [facility] Work Phone: Medications Current Medications Medication [...] Drug Class(es) Dates Sig (Normalized) Sig (Original) [id number] 200 actuat albuterol 0.09 mg/actuat metered dose [...] (Bld)on 01-21-2025 Basophils (Bld) [#/Vol] 0.03 10*3/uL [facility] Basophils/100 WBC (Bld) 0.5 % [facility] Differential cell count method Nom (Bld) Auto [facility] Eosinophils (Bld) [#/Vol] 0.05 10*3/uL [facility] Eosinophils/100 WBC (Bld) 0.8 % [facility] Erythrocyte distribution width (RBC) [Ratio] 12.3 % 11.5 - 15.0 % [facility] Hematocrit (Bld) [Volume fraction] 40.5 % 36.0 - 46.0 % [facility] Hemoglobin (Bld) [Mass/Vol] 13.5 g/dL 11.5 - 15.5 g/dL [facility] Immature granul[facility] (Bld) [#/Vol[facility] Immature granulocytes/100 WBC (Bld) 0.2 % [facility] Lymphocytes (Bld) [#/Vol] 2.7 10*3/uL [facility] Lymphocytes/100 WBC (Bld) 43.1 % [facility] MCH (RBC) [Entitic mass] 28.6 pg 26.0 - 34.0 pg [facility] MCHC (RBC) [Mass/Vol] 33.3 g/dL 30.5 - 36.0 g/dL [facility] MCV (RBC) [Entitic vol] 85.8 fL 80.0 - 100.0 fL [facility] Monocytes (Bld) [#/Vol] 0.48 10*3/uL [facility] Monocytes/100 WBC (Bld) 7.7 % [facility] Neutrophils (Bld) [#/Vol] 2.99 10*3/uL [facility] Neutrophils/100 WBC (Bld) 47.7 % [facility] Nucleated RBC (Bld) [#/Vol] [facility] Nucleated RBC/100 WBC (Bld) [Ratio] 0 % /100 WBC [facility] Platelet mean volume (Bld) [Entitic vol] 9.1 fL 9.0 - 12.7 fL [facility] Platelets (Bld) [#/Vol] 225 10*3/uL [facility] RBC (Bld) [#/Vol] 4.72 10*6/uL 3.90 - 5.2 0 m/uL [facility] WBC (Bld) [#/Vol] 6.26 10*3/uL [facility] Basophils (Bld) [#/Vol] 0.03 10*3/uL Normal <0.[address] [facility] Comment on above: Order Comment: Speci men Type: BLOOD SPECIMEN Ordering Facility: [facility] Address: [address] [place] [address] Performed By: #### 5 7021-8 #### [facility] CLIA [id number] [address] [place] [address] [place] Basophils/100 WBC (Bld) 0.5 % Normal [facility] Comment on above: Order Comment: Speci men Type: BLOOD SPECIMEN Ordering Facility: [facility] Address: [address] [place] [address] Performed By: #### 5 7021-8 #### [facility] CLIA [id number] [address] [place] [address] [place] Differential cell count method Nom (Bld) Auto Normal [facility] Comment on above: Order Comment: Speci men Type: BLOOD SPECIMEN Ordering Facility: [facility] Address: [address] [place] [address] Performed By: #### 5 7021-8 #### [facility] CLIA [id number] [address] [place] [address] [place] Eosinophils (Bld) [#/Vol] 0.05 10*3/uL Normal <0.[address] [facility] Comment on above: Order Comment: Speci men Type: BLOOD SPECIMEN Ordering Facility: [facility] Address: [address] [place] [address] Performed By: #### 5 7021-8 #### [facility] CLIA [id number] [address] [place] [address] [place] Eosinophils/100 WBC (Bld) 0.8 % Normal [facility] Comment on above: Order Comment: Speci men Type: BLOOD SPECIMEN Ordering Facility: [facility] Address: [address] [place] [address] Performed By: #### 5 7021-8 #### [facility] CLIA [id number] [address] [place] [address] [place] Erythrocyte distribution width (RBC) [Ratio] 12.3 % Normal 11.5-15.[address] [facility] Comment on above: Order Comment: Speci men Type: BLOOD SPECIMEN Ordering Facility: [facility] Address: [address] [place] [address] Performed By: #### 5 7021-8 #### [facility] CLIA [id number] [address] [place] [address] [place] Hematocrit (Bld) [Volume fraction] 40.5 % Normal 36.0-46.[address] [facility] Comment on above: Order Comment: Speci men Type: BLOOD SPECIMEN Ordering Facility: [facility] Address: [address] [place] [address] Performed By: #### 5 7021-8 #### [facility] CLIA [id number] [address] [place] [address] [place] Hemoglobin (Bld) [Mass/Vol] 13.5 g/dL Normal 11.5-15.[address] [facility] Comment on above: Order Comment: Speci men Type: BLOOD SPECIMEN Ordering Facility: [facility] Address: [address] [place] [address] Performed By: #### 5 7021-8 #### [facility] CLIA [id number] [address] [place] [address] [place] Immature granulocytes (Bld) [#/Vol] 10*3/uL Normal <0.[address] [facility] Comment on above: Order Comment: Speci men Type: BLOOD SPECIMEN Ordering Facility: [facility] Address: [address] [place] [address] Performed By: #### 5 7021-8 #### [id number] [address] [place] [address] [place] Immature granulocytes/100 WBC (Bld) 0.2 % Normal [facility] Comment on above: Order Comment: Speci men Type: BLOOD SPECIMEN Ordering Facility: [facility] Address: [address] [place] [address] Performed By: #### 5 7021-8 #### [facility] CLIA [id number] [address] [place] [address] [place] Lymphocytes (Bld) [#/Vol] 2.70 10*3/uL Normal 1.00-4.[address] [facility] Comment on above: Order Comment: Speci men Type: BLOOD SPECIMEN Ordering Facility: [facility] Address: [address] [place] [address] Performed By: #### 5 7021-8 #### [facility] CLIA [id number] [address] [place] [address] [place] Lymphocytes/100 WBC (Bld) 43.1 % Normal [facility] Comment on above: Order Comment: Speci men Type: BLOOD SPECIMEN Ordering Facility: [facility] Address: [address] [place] [address] Performed By: #### 5 7021-8 #### [facility] CLIA [id number] [address] [place] [address] [place] MCH (RBC) [Entitic mass] 28.6 pg Normal 26.0-34.[address] [facility] Comment on above: Order Comment: Speci men Type: BLOOD SPECIMEN Ordering Facility: [facility] Address: [address] [place] [address] Performed By: #### 5 7021-8 #### [facility] CLIA [id number] [address] [place] [address] [place] MCHC (RBC) [Mass/Vol] 33.3 g/dL Normal 30.5-36.[address] [facility] Comment on above: Order Comment: Speci men Type: BLOOD SPECIMEN Ordering Facility: [facility] Address: [address] [place] [address] Performed By: #### 5 7021-8 #### [facility] CLIA [id number] [address] [place] [address] [place] MCV (RBC) [Entitic vol] 85.8 fL Normal 80.0-100.[address] [facility] Comment on above: Order Comment: Speci men Type: BLOOD SPECIMEN Ordering Facility: [facility] Address: [address] [place] [address] Performed By: #### 5 7021-8 #### [facility] CLIA [id number] [address] [place] [address] [place] Monocytes (Bld) [#/Vol] 0.48 10*3/uL Normal <0.[address] [facility] Comment on above: Order Comment: Speci men Type: BLOOD SPECIMEN Ordering Facility: [facility] Address: [address] [place] [address] Performed By: #### 5 7021-8 #### [facility] CLIA [id number] [address] [place] [address] [place] Monocytes/100 WBC (Bld) 7.7 % Normal [facility] Comment on above: Order Comment: Speci men Type: BLOOD SPECIMEN Ordering Facility: [facility] Address: [address] [place] [address] Performed By: #### 5 7021-8 #### [facility] CLIA [id number] [address] [place] [address] [place] Neutrophils (Bld) [#/Vol] 2.99 10*3/uL Normal 1.45-7.[address] [facility] Comment on above: Order Comment: Speci men Type: BLOOD SPECIMEN Ordering Facility: [facility] Address: [address] [place] [address] Performed By: #### 5 7021-8 #### [facility] CLIA [id number] [address] [place] [address] [place] Neutrophils/100 WBC (Bld) 47.7 % Normal [facility] Comment on above: Order Comment: Speci men Type: BLOOD SPECIMEN Ordering Facility: [facility] Address: [address] [place] [address] Performed By: #### 5 7021-8 #### [facility] CLIA [id number] [address] [place] [address] [place] Nucleated RBC (Bld) [#/Vol] 10*3/uL Normal <0.[address] [facility] Comment on above: Order Comment: Speci men Type: BLOOD SPECIMEN Ordering Facility: [facility] Address: [address] [place] [address] Performed By: #### 5 7021-8 #### [facility] CLIA [id number] [address] [place] [address] [place] Nucleated RBC/100 WBC (Bld) [Ratio] 0.0 /[address] [facility] Comment on above: Order Comment: Speci men Type: BLOOD SPECIMEN Ordering Facility: [facility] Address: [address] [place] [address] Performed By: #### 5 7021-8 #### [facility] CLIA [id number] [address] [place] [address] [place] Platelet mean volume (Bld) [Entitic vol] 9.1 fL Normal 9.0-12.[address] [facility] Comment on above: Order Comment: Speci men Type: BLOOD SPECIMEN Ordering Facility: [facility] Address: [address] [place] [address] Performed By: #### 5 7021-8 #### [facility] CLIA [id number] [address] [place] [address] [place] Platelets (Bld) [#/Vol] 225 10*3/uL Normal 150-[address] [facility] Comment on above: Order Comment: Speci men Type: BLOOD SPECIMEN Ordering Facility: [facility] Address: [address] [place] [address] Performed By: #### 5 7021-8 #### [facility] CLIA [id number] [address] [place] [address] [place] RBC (Bld) [#/Vol] 4.72 10*6/uL Normal 3.90-5.20 [facility] Comment on above: Order Comment: Speci men Type: BLOOD SPECIMEN Ordering Facility: [facility] Address: [address] [place], [place] [address] Performed By: #### 5 7021-8 #### [facility] LINDAIA [id number] [address] [place] [address] [place] WBC (Bld) [#/Vol] 6.26 10*3/uL Normal 3.70-11.00 [facility] Comment on above: Order Comment: Speci men Type: BLOOD SPECIMEN Ordering Facility: [facility] Address: [address] [place] [address] Performed By: #### 5 7021-8 #### [facility] CLIA [id number] [address] [place] [address] [place] CNOVSPon 01-21-2025 CNOVSP Visit (SP) Office ([facility]) MAX ROLDAN ([id number]) 1955 F Date Time Provider Department 01/21/25 [...] to re-establish care. Interim history: Moved to [place] in 2022. Has been doing well overall. Planning to move back to [place] early next year. Appetite is normal. However [...] which included preparing to see the patient, caui-br-jemp patient care, completing clinical documentation, obtaining and/or [...] BLOOD COUNT AND DIFFERENTIAL [SQCBCDIF] Order #: [id number] FUTU (more content not included)... Normal [facility] Comprehensive metabolic 2000 panelOrdered By: Akiko Moore on 01-21-2025 Albumin [Mass/Vol] 4.6 g/dL 3.9 - 4.9 g/dL [facility] ALP [Catalytic activity/Vol] 122 U/L 34 - 123 U/L [facility] ALT [Catalytic activity/Vol] 14 U/L 7 - 38 U/L [facility] Anion gap [Moles/Vol] 15 mmol/L 8 - 15 mmol/L [facility] AST [Catalytic activity/Vol] 20 U/L 13 - 35 U/L [facility] Bilirubin [Mass/Vol] 0.4 mg/dL 0.2 - 1 .3 mg/dL [facility] Calcium [Mass/Vol] 9.8 mg/dL 8.5 - 10. 2 mg/dL [facility] Chloride [Moles/Vol] 103 mmol/L 98 - 10 7 mmol/L [facility] CO2 [Moles/Vol] 21 mmol/L Low 22 - 30 mmol/L [facility] Creatinine [Mass/Vol] 0.88 mg/dL 0.58 - 0.96 mg/dL [facility] GFR/1.73 sq M.predicted among non-blacks MDRD (S/P/Bld) [Vol rate/Area] 72 mL/min/{1.73_m2} - PINF [facility] Comment on above: Estimated Glomerular Filtration [...] 111 mg/dL High 74 - 99 mg/dL [facility] Comment on above: The [place] Diab[employer] Association (ADA) provides guidance for [...] Standards of Medical Care in Diabetes 2016, [place] [employer]. Diabetes Care. 2016.39(Suppl 1). Interpretation and review of laboratory results Abnormal [facility] Potassium [Moles/Vol] 4 mmol/L 3.7 - 5.1 mmol/L [facility] Protein [Mass/Vol] 7.8 g/dL 6.3 - 8.0 g/dL [facility] Sodium [Moles/Vol] 139 mmol/L 136 - 144 mmol/L [facility] Urea nitrogen [Mass/Vol] 15 mg/dL 7 - 21 mg/dL [facility] Comprehensive metabolic 2000 panelon 01-21-2025 Albumin [Mass/Vol] 4.6 g/dL Normal 3.9-4.9 [facility] Comment on above: Order Comment: Speci men Type: BLOOD SPECIMEN Ordering Facility: [facility] Address: [address] [place] [address] Performed By: #### 2 4323-8, 2532-0 #### [facility] CLIA [id number] [address] [place] [address] [place] ALP [Catalytic activity/Vol] 122 U/L Normal 34-[address] [facility] Comment on above: Order Comment: Speci men Type: BLOOD SPECIMEN Ordering Facility: [facility] Address: [address] [place] [address] Performed By: #### 2 4323-8, 2532-0 #### [facility] CLIA [id number] [address] [place] [address] [place] ALT [Catalytic activity/Vol] 14 U/L Normal 7-[address] [facility] Comment on above: Order Comment: Speci men Type: BLOOD SPECIMEN Ordering Facility: [facility] Address: [address] [place] [address] Performed By: #### 2 4323-8, 2532-0 #### [facility] CLIA [id number] [address] [place] [address] [place] Anion gap [Moles/Vol] 15 mmol/L Normal 8-[address] [facility] Comment on above: Order Comment: Speci men Type: BLOOD SPECIMEN Ordering Facility: [facility] Address: [address] [place] [address] Performed By: #### 2 4323-8, 2532-0 #### [facility] CLIA [id number] [address] [place] [address] [place] AST [Catalytic activity/Vol] 20 U/L Normal 13-[address] [facility] Comment on above: Order Comment: Speci men Type: BLOOD SPECIMEN Ordering Facility: [facility] Address: [address] [place] [address] Performed By: #### 2 4323-8, 2531-0 #### [facility] CLIA [id number] [address] [place] [address] [place] Bilirubin [Mass/Vol] 0.4 mg/dL Normal 0.2-1.3 [facility] Comment on above: Order Comment: Speci men Type: BLOOD SPECIMEN Ordering Facility: [facility] Address: [address] [place], [place] [address] Performed By: #### 2 4323-8, 2531-0 #### [facility] CLIA [id number] [address] [place] [address] [place] Calcium [Mass/Vol] 9.8 mg/dL Normal 8.5-10.2 [facility] Comment on above: Order Comment: Speci men Type: BLOOD SPECIMEN Ordering Facility: [facility] Address: [address] [place], [place] [address] Performed By: #### 2 4323-8, 2531-0 #### [facility] CLIA [id number] [address] [place] [address] [place] Chloride [Moles/Vol] 103 mmol/L Normal 98-107 [facility] Comment on above: Order Comment: Speci men Type: BLOOD SPECIMEN Ordering Facility: [facility] Address: [address] [place] [address] Performed By: #### 2 4323-8, 2531-0 #### [facility] CLIA [id number] [address] [place] [address] [place] CO2 [Moles/Vol] 21 mmol/L Low 22-[address] [facility] Comment on above: Order Comment: Speci men Type: BLOOD SPECIMEN Ordering Facility: [facility] Address: [address] [place] [address] Performed By: #### 2 4323-8, 253-0 #### [facility] CLIA [id number] [address] [place] [address] [place] Creatinine [Mass/Vol] 0.88 mg/dL Normal 0.58-0.[address] [facility] Comment on above: Order Comment: Yonatan aguilar Type: BLOOD SPECIMEN Ordering Facility: [facility] Address: [address] [place] [address] Performed By: #### 2 4323-8, 2531-0 #### [facility] CLIA [id number] [address] [place] [address] [place] eGFRcr SerPlBld CKD-EPI 2020 72 mL/min/1.73m??? Normal >=[address] [facility] Comment on above: Order Comment: Yonatan aguilar Type: BLOOD SPECIMEN Ordering Facility: [facility] Address: [address] [place] [address] Result Comment: Nicole mated Glomerular Filtration Rate [...] Performed By: #### 2 4323-8, 2531-0 #### [facility] CLIA [id number] [address] [place] [address] [place] Glucose [Mass/Vol] 111 mg/dL High 74-99 [facility] Comment on above: Order Comment: Yonatan aguilar Type: BLOOD SPECIMEN Ordering Facility: [facility] Address: [address] [place] [address] Result Comment: The [place] Diabetes Association (ADA) provides guidance for cutoff [...] Standards of Medical Care in Diabetes 2016, [place] Diabetes [employer]. Diabetes Care. 2016.39(Suppl 1). Performed By: #### 2 4323, 0 #### [facility] CLIA [id number] [address] [place] [address] [place] Potassium [Moles/Vol] 4.0 mmol/L Normal 3.7-5.[address] [facility] Comment on above: Order Comment: Yonatan aguilar Type: BLOOD SPECIMEN Ordering Facility: [facility] Address: [address] [place] [address] Performed By: #### 2 43208-31, 0 #### [facility] CLIA [id number] [address] [place] [address] [place] Protein [Mass/Vol] 7.8 g/dL Normal 6.3-8.0 [facility] Comment on above: Order Comment: Yonatan aguilar Type: BLOOD SPECIMEN Ordering Facility: [facility] Address: [address] [place] [address] Performed By: #### 2 43208-31, 0 #### [facility] CLIA [id number] [address] [place] [address] [place] Sodium [Moles/Vol] 139 mmol/L Normal 136-144 [facility] Comment on above: Order Comment: Yonatan aguilar Type: BLOOD SPECIMEN Ordering Facility: [facility] Address: [address] [place] [address] Performed By: #### 2 4328, 2531-0 #### [facility] CLIA [id number] [address] [place] [address] [place] Urea nitrogen [Mass/Vol] 15 mg/dL Normal 7-[address] [facility] Comment on above: Order Comment: Speci men Type: BLOOD SPECIMEN Ordering Facility: [facility] Address: [address] [place], [place] [address] Performed By: #### 2 4323-8, 2532-0 #### [facility] CLIA [id number] [address] [place] [address] [place] LACTATE DEHYDROGENASEon 12-25 LDH [Catalytic activity/Vol] 178 U/L 135 - 214 U/L [facility] LDH SerPl-cCncon 01-21-2025 LDH [Catalytic activity/Vol] 178 U/L Normal 135-[address] [facility] Comment on above: Order Comment: Speci jeff Type: BLOOD SPECIMEN Ordering Facility: [facility] Address: [address] [place] [address] Performed By: #### 2 4323-8, 2-0 #### [facility] CLIA [id number] [address] [place] [address] [place] LDH [Catalytic activity/Vol] on 01-21-2025 Interpretation and review of laboratory results Normal [facility] XR CHEST 2V FRONTAL/LATon [facility] XR Chest PA and Lateralon IMPRESSION: No acute pulmonary process is identified. 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: [facility] Transcribe Date/Time: Dec 17 2022 10:03A Dictated by : DANIELLE SANDERS MD This examination was interpreted and the report reviewed and electronically signed by: DANIELLE SANDERS MD on Dec 17 2022 10:04AM EST [facility] Radiology Study observation (narrative) [facility] XR Chest PA and LateralOrder ed By: Ccf Provider on 12-17-2022 [facility] XR Lumbar spine 3 Viewson IMPRESSION: DEGENERATIVE CHANGE AND ALIGNMENT ABNORMALITIES DESCRIBED. 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: [facility] Transcribe Date/Time: Jul 04 2022 10:38A Dictated by : RALF BUCKNER MD This examination was interpreted and the report reviewed and electronically signed by: RALF BUCKNER MD on Jul 04 2022 10:50AM [facility] DIVISION OF RADIOLOGY * * *Final Report* [...] abnormality DIVISION OF RADIOLOGY Provider, Peter abernathy Stinnett - 07/04/2022 * * *Final Report* * [...] IMPRESSION: DEGENERATIVE CHANGE AND ALIGNMENT ABNORMALITIES DESCRIBED. 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: [employer] Transcribe Date/Time: Jul 04 2022 10:38A Dictated by : RALF BUCKNER MD This examination was interpreted and the report reviewed and electronically signed by: RALF BUCKNER MD on Jul 04 2022 10:50AM EST [facility] XR Lumbar spine 3 ViewsOrder ed By: Ccf Provider on 07-04-2022 [facility] XR Lumbar spine 3 Viewson Radiology Study observation (narrative) [facility] UA DIP, URINE (POC)on 2022 BILIRUBIN UA (POCT) Negative Negative [facility] CLARITY UA (POCT) Clear [facility] COLOR UA (POCT) Yellow [facility] GLUCOSE UA (POCT) Negative Negative mg/dL [facility] HEMOGLOBIN/BLOOD UA (POCT) Negative Negative [facility] KETONE UA (POCT) Negative Negative mg/dL [facility] LEUKOCYTES UA (POCT) Negative Negative [facility] NITRITE UA (POCT) Negative Negative [facility] PH UA (POCT) 5.5 4.5 - 8.0 [facility] Protein Ql (U) Negative Negative mg/dL [facility] SPECIFIC GRAVITY UA (POCT) 1.015 1.005 - 1.030 [facility] UROBILINOGEN UA (POCT) 0.2 E.U./dL Normal E.U./dL [facility] .Auto Diffon 03-05-2018 Ammonia mass conc (P) 0.40 10 3/mcL Normal 0.15-1.00 [facility] ([place]) Comment on above: Performed By: #### C PADILLA SONG, ANEU ####[place] [address]#### GFR, CMP ####[address] [address] Basophils Auto #/vol (Bld) 0.00 10 3/mcL Normal 0.00-0.19 [facility] ([place]) Comment on above: Performed By: #### PADILLA KNAPP, ANEU ####[place] [address]#### GFR, CMP ####[address] [address] Basophils/100 WBC Auto (Bld) 0.6 % Normal 0.0-2.5 [facility] ([place]) Comment on above: Performed By: #### PADILLA KNAPP, ANEU ####Kenneth Nxarendr324[place] [address]#### GFR, CMP ####[address] [address] Eosinophils Auto #/vol (Bld) 0.10 10 3/mcL Normal 0.00-0.40 [facility] ([place]) Comment on above: Performed By: #### PADILLA KNAPP, ANEU ####Kenneth Rufux[address] [place] [address]#### GFR, CMP ####[address] [address] Eosinophils/100 WBC Auto (Bld) 2.7 % Normal 0.0-7.0 [facility] ([place]) Comment on above: Performed By: #### C BC, ADIFF, ANEU ####Kenneth [address] [place], [place] [address]#### GFR, CMP ####[address] [address] Lymphocytes Auto #/vol (Bld) 2.00 10 3/mcL Normal 0.77-3.85 [facility] ([place]) Comment on above: Performed By: #### C BC, ADIFF, ANEU ####Kenneth [address] [place], [place] [address]#### GFR, CMP ####[address] [address] Lymphocytes/100 WBC Auto (Bld) 43.4 % Normal 10.0-50.0 [facility] ([place]) Comment on above: Performed By: #### C BC, ADIFF, ANEU ####Kenneth Mfwithbt850 [place] [address]#### GFR, CMP ####[address] [address] Monocytes/100 WBC Auto (Bld) 8.4 % Normal 1.7-13.0 [facility] ([place]) Comment on above: Performed By: #### C BC, ADIFF, ANEU ####Kenneth [address] [place], [place] [address]#### GFR, CMP ####[address] [address] Neutrophils/100 WBC Auto (Bld) 44.9 % Normal 37.0-80.0 [facility] ([place]) Comment on above: Performed By: #### C BC, ADIFF, ANEU ####Kenneth [address] [place], [place] [address]#### GFR, CMP ####[address] [address] .GFRon 03-05-2018 GFR Non- 70 ml/min/1.73sqm Normal [facility] ([place]) Comment on above: Result Comment: GFR Population [...] #### C BC, ADIFF, ANEU ####Kenneth [place] [place] [address]#### GFR, CMP ####[place] [address] GFR 85 ml/min/1.73sqm Normal [facility] ([place]) Comment on above: Result Comment: GFR Population [...] #### C BC, ADIFF, ANEU ####Kenneth [place] [place] [address]#### GFR, CMP ####[place] [id number] .NEUABSon 03-05-2018 Neutrophil, Absolute 2.00 10 3/mcL Low 2.85-6.16 [facility] ([place]) Comment on above: Performed By: #### C BC, NASIFF, ANEU ####Kenneth [place] [place] [address]#### GFR, CMP ####[place] [address] CBCon 03-05-2018 Erythrocyte distribution width Auto Ratio (RBC) 14.3 % Normal 11.5-14.5 [facility] ([place]) Comment on above: Performed By: #### C BC, ADIFF, ANEU ####Kenneth [place] [place] [address]#### GFR, CMP ####[place] [address] Hematocrit Auto Volume Fraction (Bld) 39.5 % Normal 37.0-47.0 [facility] ([place]) Comment on above: Performed By: #### C NOHEMI, ADIFF, ANEU ####Kenneth [place] [place] [address]#### GFR, CMP ####[place] [address] Hemoglobin mass conc (Bld) 13.4 G/dL Normal 12.0-16.0 [facility] ([place]) Comment on above: Performed By: #### C NOHEMI, ADIFF, ANEU ####[place] [address]#### GFR, CMP ####[place] [address] MCH Auto Entitic mass (RBC) 28.9 pg Normal 27.0-31.2 [facility] ([place]) Comment on above: Performed By: #### C BC, ADIFF, ANEU ####Kenneth [place] [place] [address]#### GFR, CMP ####[place] [address] MCHC Auto mass conc (RBC) 34.1 G/dL Normal 33.0-37.0 [facility] ([place]) Comment on above: Performed By: #### C BC, ADIFF, ANEU ####Kenneth Uelzkeqh[address] [place] [address]#### GFR, CMP ####[address] [address] MCV Auto Entitic volume (RBC) 84.7 fL Normal 80.0-94.0 [facility] ([place]) Comment on above: Performed By: #### PADILLA KNAPP, ANEU ####Kenneth [place] [address]#### GFR, CMP ####[place] [address] Platelet mean volume Auto Entitic volume (Bld) 7.5 fL Normal 7.4-10.4 [facility] ([place]) Comment on above: Performed By: #### C PADILLA SONG, ANEU ####[place] [address]#### GFR, CMP ####[place] [address] Platelets Auto #/vol (Bld) 231 10 3/mcL Normal 130-400 [facility] ([place]) Comment on above: Performed By: #### PADILLA KNAPP, ANEU ####Kenneth [place] [address]#### GFR, CMP ####[place] [address] RBC Auto #/vol (Bld) 4.66 10 6/mcL Normal 4.20-5.40 [facility] ([place]) Comment on above: Performed By: #### C PADILLA SONG, ANEU ####Kenneth [place] [address]#### GFR, CMP ####[place] [address] WBC Auto #/vol (Bld) 4.50 10 3/mcL Low 4.60-10.80 [facility] ([place]) Comment on above: Performed By: #### PADILLA KNAPP, ANEU ####Kennethtonya JonesPafosdqv[address] [place] [address]#### GFR, CMP ####[place] [address] CMPon 03-05-2018 Albumin mass conc 4.4 G/dL Normal 3.4-4.8 [facility] ([place]) Comment on above: Performed By: #### C BC, ADIFF, ANEU ####[address] [address]#### GFR, CMP ####[address] [address] Albumin/Globulin mass ratio 1.4 {ratio} Normal 1.1-2.5 [facility] ([place]) Comment on above: Performed By: #### C BC, ADIFF, ANEU ####[address] [address]#### GFR, CMP ####[address] [address] ALP enzyme act/vol 108 U/L Normal 40-135 [facility] ([place]) Comment on above: Performed By: #### C BC, ADIFF, ANEU ####[place] [address]#### GFR, CMP ####[address] [address] ALT enzyme act/vol 26 U/L Normal 10-35 [facility] ([place]) Comment on above: Performed By: #### C BC, ADIFF, ANEU ####[place] [id number]#### GFR, CMP ####[address] [address] AST enzyme act/vol 22 U/L Normal 10-40 [facility] ([place]) Comment on above: Performed By: #### C BC, ADIFF, ANEU ####[address] [address]#### GFR, CMP ####[address] [address] Bili Total 0.4 mg/dL Normal 0.2-1.0 [facility] ([place]) Comment on above: Performed By: #### C BC, ADIFF, ANEU ####Kenneth [place] [id number]#### GFR, CMP ####[facility] [place] [address] Globulin Calculated mass conc (S) 3.1 G/dL Normal [facility] ([place]) Comment on above: Performed By: #### C BC, ADIFF, ANEU ####Kenneth [address] [place], [place] [address]#### GFR, CMP ####[facility] [place] [address] Glucose mass conc 101 mg/dL Normal 80-115 [facility] ([place]) Comment on above: Performed By: #### C BC, ADIFF, ANEU ####Kenneth [address]wt[address] [place], [place] [address]#### GFR, CMP ####[address] [address] Protein mass conc 7.5 G/dL Normal 6.4-8.2 [facility] ([place]) Comment on above: Performed By: #### C BC, ADIFF, ANEU ####Kenneth [address] [place], [place] [address]#### GFR, CMP ####[facility] [place] [address] Urea nitrogen mass conc 15 mg/dL Normal 7-18 [facility] ([place]) Comment on above: Performed By: #### C BC, ADIFF, ANEU ####Kenneth Rprqymns[address] [place], [place] [address]#### GFR, CMP ####[address] [address] Urea nitrogen/Creatinine mass ratio 18 ratio Normal 7-27 [facility] ([place]) Comment on above: Performed By: #### C BC, ADIFF, ANEU ####Kenneth [address] [place], [place] [address]#### GFR, CMP ####[place] [address]2390 [address] [place] [address] Calcium mass conc 9.6 mg/dL Normal 8.4-10.2 [facility] ([place]) Comment on above: Performed By: #### C BC, ADIFF, ANEU ####Kenneth [address] [place], [place] [address]#### GFR, CMP ####[address] [address] Chloride molar conc 105 mmol/L Normal 98-107 [facility] ([place]) Comment on above: Performed By: #### C BC, ADIFF, ANEU ####[facility] [place], [place] [address]#### GFR, CMP ####[place] [address] CO2 molar conc 25 mmol/L Normal 23-31 [facility] ([place]) Comment on above: Performed By: #### C BC, ADIFF, ANEU ####[place] [address]#### GFR, CMP ####[place] [address] Creatinine mass conc 0.83 mg/dL Normal 0.55-1.02 [facility] ([place]) Comment on above: Performed By: #### C BC, ADIFF, ANEU ####[place] [address]#### GFR, CMP ####[place] [address] Electrolyte Balance 13.0 mEq/L Normal [facility] ([place]) Comment on above: Performed By: #### C BC, ADIFF, ANEU ####[place] [address]#### GFR, CMP ####[place] [address] Potassium molar conc 4.4 mmol/L Normal 3.5-5.1 [facility] ([place]) Comment on above: Performed By: #### C BC, ADIFF, ANEU ####[place] [id number]#### GFR, CMP ####[address] [address] Sodium molar conc 143 mmol/L Normal 136-145 [facility] ([place]) Comment on above: Performed By: #### C BC, ADIFF, ANEU ####Kenneth [address] [place], [place] [address]#### GFR, CMP ####[address] [address] CCP IgG Antibodieson 018 ANTI-CCP 449792 7 units Normal 0-19 [facility] Comment on above: Result Comment: Nega tive <20 Weak positive 20 - 39 Moderate positive 40 - 59 Strong positive >59 Performed By: #### L 100.0100, L101.9900 ####[facility] [address] [place], [place], [id number] Hep B Surface Antibodieson 0 12-21-2017 Hep B Jones AB Non Reactive Normal . [facility] Comment on above: Result Comment: Non Reactive: Inconsistent with immunity, less than 10 mIU/mL Reactive: Consistent with immunity, greater than 9.9 mIU/mL Performed By: #### L 3100.0390, L3100.0528, L3100.0625, L4600.0100 ####[facility] (refer to report for specific site)refer to report for address and phone number Hepatitis B Surface Agon HB SURF AG Negative Normal Negative [facility] Comment on above: Result Comment: Perf ormed at: - [facility] [address] [id number] Director: Zak Morgan PhD, Phone: [phone] at: - [facility] [address] [id number] Director: Sergei Bergman MD, Phone: [phone] Performed By: #### L 3100.0390, L3100.0528, L3100.0625, L4600.0100 ####[facility] (refer to report for specific site)refer to report for address and phone number Hepatitis C Antibodieson HEP C AB <0.1 Normal 0.0-0.9 [facility] Comment on above: Result Comment: Nega tive: < 0.8 Indeterminate: 0.8 - 0.9 Positive: > 0.9 The CDC recommends that a positive HCV antibody result be followed up with a HCV Nucleic Acid Amplification test (452730). Performed By: #### L 3100.0390, L3100.0528, L3100.0625, L4600.0100 ####[facility] (refer to report for specific site)refer to report for address and phone number ANTINUCLEAR ANTIBODIES DIREC Ton 12-20-2017 EDUARDO-DIRECT Negative Normal Negative [facility] Comment on above: Result Comment: Plea se Note: Specimen is lipemic.Performed at: [facility] [address] [id number] Director: Zak Morgan PhD, Phone: [phone] Performed By: #### L 3100.5475, L3100.9100 ####[facility] (refer to report for specific site)refer to report for address and phone number Sjogren's Antibodies A/Bon 0 12-20-2017 Anti-SS-A < 0.2 Normal 0.0-0.9 [facility] Comment on above: Performed By: #### L 3100.5475, L3100.9100 ####[facility] (refer to report for specific site)refer to report for address and phone number Anti-SS-B < 0.2 Normal 0.0-0.9 [facility] Comment on above: Performed By: #### L 3100.5475, L3100.9100 ####[facility] (refer to report for specific site)refer to report for address and phone number CBC W/Diff, Automatedon - Absolute Neut 2.7 X10 3/uL Normal 2.0-7.7 [facility] Comment on above: Performed By: #### L 100.0100, L101.9900 ####[facility] [address] [place], [address] Basophils/100 WBC Auto (Bld) 0.4 % Normal 0-1 [facility] Comment on above: Performed By: #### L 100.0100, L101.9900 ####[facility] [address] [place], [address] Eosinophils/100 leukocytes 2.3 % Normal 0-5 [facility] Comment on above: Performed By: #### L 100.0100, L101.9900 ####[facility] [address] [place], [address] Erythrocyte distribution width Auto Ratio (RBC) 14.2 % Normal 11.6-14.6 [facility] Comment on above: Performed By: #### L 100.0100, L101.9900 ####[facility] [address] [place], [address] Erythrocytes (RBC) 4.55 M/mm3 Normal 4.2-5.4 [facility] Comment on above: Performed By: #### L 100.0100, L101.9900 ####[facility] [address] [place], [address] Hematocrit (HCT) 39.4 % Normal 37-47 [facility] Comment on above: Performed By: #### L 100.0100, L101.9900 ####[facility] [address] [place], [address] Hemoglobin mass conc (Bld) 12.6 g/dL Normal 12.0-15.0 [facility] Comment on above: Performed By: #### L 100.0100, L101.9900 ####[facility] [address] [place], [address] IM GRAN % 0.200 % Normal 0.0-0.9 [facility] Comment on above: Result Comment: IG% - Immature Granulocytes (promyelocytes, myelocytes andmetamyelocytes) > 1% indicates that a LEFT SHIFT is Present. Performed By: #### L 100.0100, L101.9900 ####[facility] [address] [place], [address] Lymphocytes 2.09 X10 3/ul Normal 0.83-4.51 [facility] Comment on above: Performed By: #### L 100.0100, L101.9900 ####[facility] [address] [place], [address] Lymphocytes/100 leukocytes 39.7 % Normal 19-41 [facility] Comment on above: Performed By: #### L 100.0100, L101.9900 ####[facility] [address] [place], [address] MCH 27.7 pg Normal 27.0-32.0 [facility] Comment on above: Performed By: #### L 100.0100, L101.9900 ####[facility] [address] [place], [address] MCHC mass conc (RBC) 32.0 g/gl Normal 32-36 [facility] Comment on above: Performed By: #### L 100.0100, L101.9900 ####[facility] [address] [place], [address] MCV 86.6 fL Normal 81-99 [facility] Comment on above: Performed By: #### L 100.0100, L101.9900 ####[facility] [address] [place], [address] Monocytes/100 leukocytes 6.6 % Normal 0-10 [facility] Comment on above: Performed By: #### L 100.0100, L101.9900 ####[facility] [address] [place], [address] Neutrophils/100 WBC Auto (Bld) 50.8 % Normal 47-70 [facility] Comment on above: Performed By: #### L 100.0100, L101.9900 ####[facility] [address] [place], [address] Platelet mean volume (PMV) 9.4 fL Normal 6.2-12.0 [facility] Comment on above: Performed By: #### L 100.0100, L101.9900 ####[facility] [address] [place], [address] Platelets 252 10*3/uL Normal 150-450 [facility] Comment on above: Performed By: #### L 100.0100, L101.9900 ####[facility] [address] [place], [address] RDW SD 44.5 fl High 35.1-43.9 [facility] Comment on above: Performed By: #### L 100.0100, L101.9900 ####[facility] [address] [place], [address] WBC (Leukocytes) 5.3 10*3/uL Normal 4.4-11.0 [facility] Comment on above: Performed By: #### L 100.0100, L101.9900 ####[facility] [address] [place], [address] CRPon 12-19-2017 C-REACTIVE PROT 5.93 mg/L High 0.0-3.0 [facility] Comment on above: Result Comment: C-Re active Protein (CRP) provides useful information for thediagnosis, therapy and monitoring of inflammatory processesand associated diseases. For the evaluation of Relative Riskfor Cardiovascular Disease, a High Sensitivity CRP (HSCRP)should be ordered. Performed By: #### L 500.4050, L501.6710, L505.7010 ####[facility] [address] [place], [address] Comprehensive Metabolic Prof ilon 12-19-2017 A/G 1.0 RATIO Normal 0.9-2.4 [facility] Comment on above: Performed By: #### L 500.4050, L501.6710, L505.7010 ####[facility] [address] [place], [address] Alanine aminotransferase (ALT) 46 U/L Normal 13-56 [facility] Comment on above: Performed By: #### L 500.4050, L501.6710, L505.7010 ####[facility] [address] [place], [address] Albumin 4.1 g/dL Normal 3.2-5.0 [facility] Comment on above: Performed By: #### L 500.4050, L501.6710, L505.7010 ####[facility] [address] [place], [address] Alkaline phosphatase (ALP) 155 U/L High 45-117 [facility] Comment on above: Performed By: #### L 500.4050, L501.6710, L505.7010 ####[facility] [address] [place], [address] Aspartate aminotransferase (AST) 34 U/L Normal 15-37 [facility] Comment on above: Performed By: #### L 500.4050, L501.6710, L505.7010 ####[facility] [address] [place], [address] Bilirubin (total) 0.30 mg/dL Normal 0.20-1.00 [facility] Comment on above: Performed By: #### L 500.4050, L501.6710, L505.7010 ####[facility] [address] [place], [address] BUN (urea nitrogen) 13.6 RATIO Normal 10-20 [facility] Comment on above: Performed By: #### L 500.4050, L501.6710, L505.7010 ####[facility] [address] [place], [address] Calcium 9.5 mg/dL Normal 8.5-10.1 [facility] Comment on above: Performed By: #### L 500.4050, L501.6710, L505.7010 ####[facility] [address] [place], [address] Chloride 104 mmol/L Normal 98-107 [facility] Comment on above: Performed By: #### L 500.4050, L501.6710, L505.7010 ####[facility] [address] [place], [address] CO2 25.0 mmol/L Normal 21.0-32.0 [facility] Comment on above: Performed By: #### L 500.4050, L501.6710, L505.7010 ####[facility] [address] [place], [address] Creatinine 0.88 mg/dL Normal 0.55-1.02 [facility] Comment on above: Result Comment: The validity of the calculated GFR AND GFRAA in patients over70 years has not been determined. Clinical correlation isessential. Performed By: #### L 500.4050, L501.6710, L505.7010 ####[facility] [address] [place], [address] eGFR (non-black) 84 mL/min/{1.73_m2} Normal >60 [facility] Comment on above: Result Comment: Afri can Palauan GFR Calc Performed By: #### L 500.4050, L501.6710, L505.7010 ####[facility] [address] [place], [address] eGFR (non-black) 70 mL/min/{1.73_m2} Normal >60 [facility] Comment on above: Result Comment: Non- GFR Calc Performed By: #### L 500.4050, L501.6710, L505.7010 ####[facility] [address] [place], [address] GAP 11 Normal 5-15 [facility] Comment on above: Performed By: #### L 500.4050, L501.6710, L505.7010 ####[facility] [address] [place], [address] Globulin 4.0 g/dL Normal 2.2-4.2 [facility] Comment on above: Performed By: #### L 500.4050, L501.6710, L505.7010 ####[facility] [address] [place], [address] Glucose mass conc 93 mg/dL Normal 74-106 [facility] Comment on above: Result Comment: Kat sanchez note revised GLUCOSE reference range quuxefoab23/02/2018. Performed By: #### L 500.4050, L501.6710, L505.7010 ####[facility] [address] [place], [address] Potassium molar conc 4.7 mmol/L Normal 3.5-5.1 [facility] Comment on above: Performed By: #### L 500.4050, L501.6710, L505.7010 ####[facility] [address] [place], [address] Sodium 140 mmol/L Normal 136-145 [facility] Comment on above: Performed By: #### L 500.4050, L501.6710, L505.7010 ####[facility] [address] [place], [address] T PROT 8.1 g/dL Normal 6.4-8.2 [facility] Comment on above: Performed By: #### L 500.4050, L501.6710, L505.7010 ####[facility] [address] [place], [address] Urea nitrogen 12 mg/dL Normal 7-18 [facility] Comment on above: Performed By: #### L 500.4050, L501.6710, L505.7010 ####[facility] [address] [place], [address] Erythrocyte Sed Rateon 12-19 SED RATE 27 mm/hr Normal 0-30 [facility] Comment on above: Performed By: #### L 100.0100, L101.9900 ####[facility] [address] [place], [place], [address] Rheumatoid Factoron 12-20-19 18 RHEUMATOID FAC < 10.0 Normal <15 [facility] Comment on above: Performed By: #### L 500.4050, L501.6710, L505.7010 ####[facility] [address] [place], [place], [address] Vital Signs Date Time Vital Sign Value Performing Clinician Faci lity 01-21-2025 11:07-0400 Body height 156.5 cm Shaheen Skype DO Work Phone: [facility] 01-21-2025 11:07-0400 Body mass index (BMI) [Ratio] 26.11 kg/m2 Shaheen CoupFlipi DO Work Phone: [facility] 01-21-2025 11:07-0400 Body temperature 99.1 [degF] Shaheen CoupFlipi DO Work Phone: [facility] 01-21-2025 11:07-0400 Body weight 63.96 kg Shaheen CoupFlipi DO Work Phone: [facility] 01-21-2025 11:07-0400 Diastolic blood pressure 87 mm[Hg] Shaheen CoupFlipi DO Work Phone: [facility] 01-21-2025 11:07-0400 Heart rate 76 /min Shaheen CoupFlipi DO Work Phone: [facility] 01-21-2025 11:07-0400 SaO2% (BldA) [Mass fraction] 97 % Shaheen CoupFlipi DO Work Phone: [facility] 01-21-2025 11:07-0400 Systolic blood pressure 130 mm[Hg] Shaheen CoupFlipi DO Work Phone: [facility] 12-17-2022 09:25-0400 Body temperature 97.81 [degF] Mahogany Athy PA-C Work Phone: [facility] 12-17-2022 09:25-0400 Body weight 66.13 kg Mahogany Athy PA-C Work Phone: [facility] 12-17-2022 09:25-0400 Diastolic blood pressure 104 mm[Hg] Mahogany Athy PA-C Work Phone: [facility] 12-17-2022 09:25-0400 Heart rate 85 /min Mahogany Athy PA-C Work Phone: [facility] 12-17-2022 09:25-0400 Respiratory rate 20 /min Mahogany Athy PA-C Work Phone: [facility] 12-17-2022 09:25-0400 SaO2% (BldA) [Mass fraction] 95 % Mahogany Athy PA-C Work Phone: [facility] 12-17-2022 09:25-0400 Systolic blood pressure 160 mm[Hg] Mahogany Athy PA-C Work Phone: [facility] 12-14-2022 09:59-0400 Body height 157.5 cm Shaheen Masci DO Work Phone: [facility] 12-14-2022 09:59-0400 Body temperature 97.9 [degF] Shaheen Masci DO Work Phone: [facility] 12-14-2022 09:59-0400 Body weight 66.68 kg Shaheen Masci DO Work Phone: [facility] 12-14-2022 09:59-0400 Diastolic blood pressure 87 mm[Hg] Shaheen Masci DO Work Phone: [facility] 12-14-2022 09:59-0400 Heart rate 74 /min Shaheen Masci DO Work Phone: [facility] 12-14-2022 09:59-0400 Systolic blood pressure 139 mm[Hg] Shaheen Masci DO Work Phone: [facility] 06-30-2022 16:28-0500 Body weight 68.67 kg Meg De Jesus MD Work Phone: [facility] 06-30-2022 16:28-0500 Diastolic blood pressure 70 mm[Hg] Meg De Jesus MD Work Phone: [facility] 06-30-2022 16:28-0500 Heart rate 74 /min Meg De Jesus MD Work Phone: [facility] 06-30-2022 16:28-0500 Respiratory rate 16 /min Meg De Jesus MD Work Phone: [facility] 06-30-2022 16:28-0500 Systolic blood pressure 122 mm[Hg] Meg De Jesus MD Work Phone: [facility] 06-28-2022 14:40-0500 Body temperature 98.29 [degF] Dione Praisler-Wood OVERHEAD DOOR TECHNICIAN.ASSOCIATE GENETICS PROFESSOR Work Phone: [facility] 06-28-2022 14:40-0500 Body weight 66.77 kg Dione Praisler-Wood OVERHEAD DOOR TECHNICIAN.ASSOCIATE GENETICS PROFESSOR Work Phone: [facility] 06-28-2022 14:40-0500 Diastolic blood pressure 86 mm[Hg] Dione Praisler-Wood OVERHEAD DOOR TECHNICIAN.ASSOCIATE GENETICS PROFESSOR Work Phone: [facility] 06-28-2022 14:40-0500 Heart rate 79 /min Dione Praisler-Wood OVERHEAD DOOR TECHNICIAN.ASSOCIATE GENETICS PROFESSOR Work Phone: [facility] 06-28-2022 14:40-0500 Respiratory rate 18 /min Dione Praisler-Wood OVERHEAD DOOR TECHNICIAN.ASSOCIATE GENETICS PROFESSOR Work Phone: [facility] 06-28-2022 14:40-0500 SaO2% (BldA) [Mass fraction] 100 % Dione Praisler-Wood OVERHEAD DOOR TECHNICIAN.ASSOCIATE GENETICS PROFESSOR Work Phone: [facility] 06-28-2022 14:40-0500 Systolic blood pressure 148 mm[Hg] Dione Praisler-Wood OVERHEAD DOOR TECHNICIAN.ASSOCIATE GENETICS PROFESSOR Work Phone: [facility] 05-04-2022 11:53-0500 Body weight 64.86 kg Meg De Jesus MD Work Phone: [facility] 05-04-2022 11:53-0500 Diastolic blood pressure 74 mm[Hg] Meg De Jesus MD Work Phone: [facility] 05-04-2022 11:53-0500 Heart rate 78 /min Meg De Jesus MD Work Phone: [facility] 05-04-2022 11:53-0500 Respiratory rate 16 /min Meg De Jesus MD Work Phone: [facility] 05-04-2022 11:53-0500 Systolic blood pressure 126 mm[Hg] Meg De Jesus MD Work Phone: [facility] 02-17-2022 14:29-0400 Body height 157 cm Shaheen Cami DO Work Phone: [facility] 02-17-2022 14:29-0400 Body temperature 98.4 [degF] Shaheen Masci DO Work Phone: [facility] 02-17-2022 14:29-0400 Body weight 64.41 kg Shaheen Masci DO Work Phone: [facility] 02-17-2022 14:29-0400 Diastolic blood pressure 80 mm[Hg] Shaheen Cami DO Work Phone: [facility] 02-17-2022 14:29-0400 Heart rate 86 /min Shaheen Masci DO Work Phone: [facility] 02-17-2022 14:29-0400 SaO2% (BldA) [Mass fraction] 97 % Shaheen Cami DO Work Phone: [facility] 02-17-2022 14:29-0400 Systolic blood pressure 135 mm[Hg] Shaheen Cami DO Work Phone: [facility] Encounters Encounter Date Encounter Type Care Provider Facility Start: 01-21-2025 End: 01-21-2025 Patient encounter procedure Shaheen Winn DO Work Phone: Hematology/Oncology Start: 01-21-2025 End: 01-21-2025 ambulatory Shaheen Winn DO Work Phone: Hematology/Oncology Comment on above: 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) (Primary Dx) Start: 04-03-2024 End: 04-08-2024 ambulatory Meg De Jesus MD Work Phone: [facility] [place] Start: 04-26-2023 ambulatory Meg villatoro MD Work Phone: Internal Medicine [facility] Start: 01-08-2023 Refill Mahogany Elias Work Phone: [facility] Comment on above: Refill Request Start: 12-19-2022 Telephone encounter Dione Earnest Murillo APRN.CNP Work Phone: [facility] Comment on above: Results Start: 12-17-2022 End: 12-17-2022 Subsequent hospital visit by physician Xr [facility] [place] Work Phone: Radiology Comment on above: Acute cough [R05.1] Start: 12-17-2022 End: 12-17-2022 Patient encounter procedure Mahogany NEGRO-C Work Phone: [facility] Comment on above: Bronchitis (Primary Dx) Start: 12-14-2022 End: 12-14-2022 ambulatory Shaheen Winn DO Work Phone: Hematology/Oncology Comment on above: 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) (Primary Dx) Start: 12-14-2022 End: 12-14-2022 Patient encounter procedure [facility]heen Winn DO [facility] Start: 09-26-2022 Telephone encounter Shaheen esparza DO Work Phone: Hematology/Oncology Comment on above: Appointment Start: 08-26-2022 ambulatory Meg villatoro MD Work Phone: [facility] Comment on above: [facility] Start: 06-30-2022 End: 06-30-2022 Subsequent hospital visit by physician Renetta [facility] [place] Work Phone: Radiology Comment on above: Acute left-sided low back pain without sciatica [M54.50] Start: 06-30-2022 End: 06-30-2022 Patient encounter procedure Meg De Jesus MD Work Phone: [facility] [place] Comment on above: Acute left-sided low back pain without sciatica (Primary Dx) Start: 06-28-2022 End: 06-28-2022 Patient encounter procedure Dione Camacho APRN.CNP Work Phone: [facility] Comment on above: Urinary frequency (P rimary Dx); Acute left-sided low back pain without sciatica Start: 05-11-2022 ambulatory Meg villatoro MD Work Phone: [facility] [place] Start: 05-04-2022 End: 05-04-2022 Patient encounter procedure Meg De Jesus MD Work Phone: [facility] [place] Comment on above: Wellness examination (Primary [...] status Meg De Jesus MD Work Phone: [facility] Start: 05-03-2022 Refill Iranna Alsea on PA-C Work Phone: [facility] [place] Comment on above: Refill Request Start: 04-22-2022 ambulatory Meg villatoro MD Work Phone: [facility] [place] Comment on above: Labs Start: 03-02-2022 ambulatory Shaheen Neal O Work Phone: Hematology/Oncology Comment on above: [facility] Start: 03-02-2022 E-mail encounter fro m caregiver Shaheen Winn DO Work Phone: [facility] Start: 02-17-2022 End: 02-17-2022 ambulatory Shaheen Winn DO Work Phone: Hematology/Oncology Comment on above: 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) (Primary Dx) Start: 02-17-2022 End: 02-17-2022 Patient encounter procedure Shaheen Willie Tatum DO Work Phone: [facility] Start: 02-16-2022 Orders Only Shaheen Tapia Tatum D O Work Phone: Hematology/Oncology Comment on above: 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) (Primary Dx) Start: 03-05-2018 End: 03-06-2018 Patient encounter [facility] Facility:[facility] Start: 12-19-2017 Ambulatory [facility] Facility :[facility] Procedures Date Procedure Procedure Detail Performing Clinician Start: 12-17-2022 Radiologic exam ches t 2 views Mahogany Gonzalez PAAliaC Work Phone: Start: 06-30-2022 Radex spine lumbosac ral 2/3 views Meg De Jesus MD Work Phone: Start: 06-28-2022 Urnls dip stick/tabl et rgnt auto w/o microscopy Ashley Haley OVERHEAD DOOR TECHNICIAN.ASSOCIATE GENETICS PROFESSOR Work Phone: Start: 05-04-2022 INFLUENZA VACCINE QUADRIVALENT [...] Start: 01-22-2028 Diabetes Screening Diabetes Screenin g [facility] Start: 05-02-2027 Lipid 1996 panel - S isabel or Plasma Lipid Screening [facility] Start: 05-02-2027 Lipid panel Lipid Screening [facility] Start: 05-02-2027 LIPID SCREEN LIPID SCREEN [facility] Start: 05-10-2026 Urine microalbumin profile [facility] Start: 07-25-2025 End: 07-25-2025 ambulatory [place] [facility] Laboratory Comment on above: CBC/CMP/LDH 6MO OV/EARLY LABS Start: 02-24-2025 Influenza vaccination Influenza Vacc ine (#1) [facility] Start: 06-26-2024 Advance Directive Discussion Advance Directive Discussion [facility] Start: 02-25-2024 Covid-19 Vaccine ( season) Covid-19 Vaccine () [facility] Start: 02-25-2024 Covid-19 Vaccine ( season) Covid-19 Vaccine ( season) [facility] Start: 02-25-2024 Influenza vaccination Influenza Vacc ine (#1) [facility] Start: 06-26-2023 Advance Directive Discussion Advance Directive Discussion [facility] Start: 05-26-2023 Medicare Annual Well ness Visit Medicare Annual Wellness Visit [facility] Start: 03-20-2023 HPV TESTING HPV TESTING [facility] Start: 03-20-2023 PAP TESTING PAP TESTING [facility] Start: 02-24-2023 Covid-19 Vaccine ( season) Covid-19 Vaccine ( season) [facility] Start: 02-24-2023 Influenza vaccination [facility] Start: 02-14-2023 Adult depression screening assessment DEPRESSION SCREENING [facility] Start: 11-24-2022 DIABETES SCREEN DIABETES SCREEN [facility] Start: 11-24-2022 Diabetes Screening Diabetes Screenin g [facility] Start: 06-26-2022 ADVANCE DIRECTIVE DISCUSSION ADVANCE DIRECTIVE DISCUSSION [facility] Start: 06-26-2022 DEPRESSION ASSESSMENT DEPRESSION ASS ESSMENT [facility] Start: 2022 BONE DENSITY BONE DENSITY [facility] Start: 2022 Bone Density Screening Bone Density Screening [facility] Start: 2022 Screening for osteoporosis Bone Density Screening [facility] Start: 05-11-2022 LIPID SCREEN LIPID SCREEN [facility] Start: 04-22-2022 End: 06-22-2022 Lipid 1996 panel - Serum or Plasma LIPID PANEL BASIC Lab Routine Screening for lipid disorders Expected: 04/22/2022, Expires: 06/22/2022 [facility] Work Phone: Comment on above: Expected: 04/22/2022 , Expires: 06/22/2022 Start: 04-07-2022 Mammography [facility] Start: 04-07-2022 Screening for malign ant neoplasm of breast Mammogram Screening [facility] Start: 02-24-2022 Influenza vaccination INFLUENZA (#1) [facility] Start: 02-17-2022 End: 04-19-2022 CBC W Auto Differential panel - Blood CBC + DIFF Lab STAT 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) Expected: 02/17/2022, Expires: 04/19/2022 [facility] Work Phone: Comment on above: Expected: 02/17/2022 , Expires: 04/19/2022 Start: 02-17-2022 End: 04-19-2022 Lactate dehydrogenase [Enzymatic activity/volume] in Serum or Plasma LD LACTATE DEHYDRO Lab Routine 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) Expected: 02/17/2022, Expires: 04/19/2022 [facility] Work Phone: Comment on above: Expected: 02/17/2022 , Expires: 04/19/2022 Start: 07-19-2021 COVID-19 VACCINE (3 - Booster for Lottie series) COVID-19 VACCINE (3 - Booster for Lottie series) [facility] Start: 07-19-2021 COVID-19 VACCINE (3 - Lottie risk series) COVID-19 VACCINE (3 - Lottie risk series) [facility] Start: 06-26-2021 DEPRESSION ASSESSMENT DEPRESSION ASS ESSMENT [facility] Start: 07-06-2017 Colonoscopy COLONOSCOPY [facility] Start: 07-06-2017 COLORECTAL CANCER SCREENING COLORECTAL CANCER SCREENING [facility] Start: 07-06-2017 Screening for malign ant neoplasm of colon [facility] Start: 2017 RSV Vaccine (1 - 1-d ose 60+ series) RSV Vaccine (1 - 1-dose 60+ series) [facility] Start: 2017 RSV Vaccine (1 - Ris k 60-74 years 1-dose series) RSV Vaccine (1 - Risk 60-74 years 1-dose series) [facility] Start: 05-27-2015 FECAL OCCULT BLOOD FECAL OCCULT BLOO D [facility] Start: 05-27-2015 Screening for malign ant neoplasm of colon Fecal Occult Blood [facility] Start: 2002 COLOGUARD (FIT-DNA) COLOGUARD (FIT-D NA) [facility] Start: [address] COLONOGRAPHY [facility] Start: 2002 Screening for malign ant neoplasm of colon [facility] Start: 2002 SIGMOIDOSCOPY SIGMOIDOSCOPY [facility] Start: 1976 SHINGRIX VACCINE (1 of 2) SHINGRIX VACCINE (1 of 2) [facility] Start: 1975 Anxiety Screening Anxiety Screening [facility] Start: 1975 Depression Screening Depression Scre ening [facility] Start: 1963 PNEUMOCOCCAL (1 - PCV) PNEUMOCOCCAL (1 - PCV) [facility] COVID, FLU A/B + RSV , ROUTINE COVID, FLU A/B + RSV, ROUTINE Microbiology Routine Bronchitis Ordered: 12/17/2022 [facility] Work Phone: Comment on above: Ordered: 12/17/2022 End: 05-03-2025 DBT Breast - bilateral screening COLTON SCREENING W [facility] Radiology Routine Encounter for screening mammogram for breast cancer 1 Occurrences starting 04/03/2024 until 05/03/2025 [facility] Work Phone: Comment on above: 1 Occurrences starti ng 04/03/2024 until 05/03/2025 End: 05-25-2024 COLTON SCREENING COLTON SCREENING Radiology Routine Encounter for screening mammogram for breast cancer 1 Occurrences starting 04/26/2023 until 05/25/2024 [facility] Work Phone: Comment on above: 1 Occurrences starti ng 04/26/2023 until 05/25/2024 End: 07-30-2023 Radex spine lumbosacral 2/3 views XR LUMBAR GENERAL 3V AP/LAT/L5-S1 Radiology Routine Acute left-sided low back pain without sciatica 1 Occurrences starting 06/30/2022 until 07/30/2023 [facility] Work Phone: Comment on above: 1 Occurrences starti ng 06/30/2022 until 07/30/2023 Radex spine lumbosac ral 2/3 views XR LUMBAR GENERAL 3V AP/LAT/L5-S1 Radiology Routine Acute left-sided low back pain without sciatica 06/30/2022 5:24 PM EST [facility] Work Phone: ROUTINE FLU A/B + RSV ROUTINE FL U A/B + RSV Lab Routine Bronchitis Ordered: 12/17/2022 [facility] Work Phone: Comment on above: Ordered: 12/17/2022 SARS-CoV-2 (COVID-19 ) RNA [Presence] in Respiratory specimen by ENEIDA with probe detection 2019 CORONAVIRUS Microbiology Routine Bronchitis Ordered: 12/17/2022 [facility] Work Phone: Comment on above: Ordered: 12/17/2022 End: 06-10-2023 Screening mammography bi 2-view breast inc cad COLTON SCREENING Radiology Routine Encounter for screening mammogram for breast cancer 1 Occurrences starting 05/11/2022 until 06/10/2023 [facility] Work Phone: Comment on above: 1 Occurrences starti ng 05/11/2022 until 06/10/2023 [facility] Immunizations Immunization Date Immunization Notes Care Provider Lisandra wong 05-04-2022 COVID-19 booster vaccine, age 12+ yr, bivalent (PFIZER-BIONTNogacom) Meg De Jesus MD Work Phone: [facility] 05-04-2022 influenza, injectabl e, quadrivalent, contains preservative Meg De Jesus MD Work Phone: [facility] 05-04-2022 pneumococcal (PCV20) vaccine, 20 valent (PREVNAR 20) Meg De Jesus MD Work Phone: [facility] 05-04-2022 pneumococcal Conjugate, unspecified formulation Meg De Jesus MD Work Phone: [facility] Work Phone: 05-04-2022 influenza virus vaccine, unspecified formulation Meg De Jesus MD Work Phone: [facility] 05-24-2021 COVID-19 vaccine (LOTTIE) Shaheen Dorinai DO Work Phone: [facility] 03-23-2021 influenza, injectabl e, quadrivalent, contains preservative Shaheen Masci DO Work Phone: [facility] 09-05-2020 COVID-19 vaccine (LOTTIE) Shaheen Masci DO Work Phone: [facility] 03-09-2020 influenza, injectabl e, quadrivalent, contains preservative Shaheen Masci DO Work Phone: [facility] 04-09-2019 influenza, seasonal, injectable Shaheen Masci DO Work Phone: [facility] 04-06-2018 influenza, injectabl e, quadrivalent, contains preservative Shaheen Masci DO Work Phone: [facility] 04-26-2017 influenza, seasonal, injectable Shaheen Masci DO Work Phone: [facility] 05-10-2016 tetanus toxoid, reduced diphtheria toxoid, and acellular pertussis vaccine, adsorbed Shaheen Dorinai DO Work Phone: [facility] 04-21-2016 influenza, injectabl e, quadrivalent, contains preservative Shaheen Masci DO Work Phone: [facility] Work Phone: 04-22-2015 influenza, seasonal, injectable Shaheen Masci DO Work Phone: [facility] 04-24-2014 influenza, seasonal, injectable Shaheen Masci DO Work Phone: [facility] 06-12-2008 influenza virus vaccine, unspecified formulation Shaheen Masci DO Work Phone: [facility] Work Phone: 01-23-2006 tuberculin skin test ; purified protein derivative solution, intradermal Xr [facility] Work Phone: [facility] Payers Date Payer Category Payer Medicare MEDICARE [id number] 2023 Medicare [id number] 2017 Unknown [id number] 2016 Private Health Insurance [facility] [employer] CHOICE PLUS [id number] 2016-Present [phone] [address] [address] [place] [address] HMO [id number] Social History Date Type Detail Facility Start: 10-11-2011 End: 01-21-2025 Tobacco smoking status NHIS Ex-smoker [facility] Work Phone: Start: 08-24-2000 End: 08-24-2010 History of tobacco use Current smoker [facility] Work Phone: Start: 08-24-2000 End: 08-24-2010 History of tobacco use Cigarette Smoker [facility] Work Phone: Start: 10-11-2011 End: 01-21-2025 Cigarettes smoked current (pack per day) - Reported 1 [facility] Start: 10-11-2011 End: 01-21-2025 Tobacco use and exposure Smokeless tobacco non-user [facility] Work Phone: Start: 03-23-2021 End: 12-17-2022 Alcohol intake Current drinker of alcohol (finding) [facility] Start: 03-07-2020 End: 06-30-2022 History SDOH Alcohol Frequency 2 [facility] Start: 03-07-2020 End: 06-30-2022 History SDOH Alcohol Std Drinks 1 [facility] Start: 08-21-2017 History SDOH Alcohol Comment 2-3 times a year [facility] Start: 03-07-2020 End: 06-30-2022 History SDOH Social Connections Phone 3 [facility] Start: 03-07-2020 End: 06-30-2022 History SDOH Physical Activity MPS 4 [facility] Start: 03-09-2020 End: 06-30-2022 History SDOH Financial 5 [facility] Start: 03-07-2020 Education 15 [facility] Start: 1955 Sex Assigned At Female [facility] Work Phone: Start: 02-07-2022 End: 05-04-2022 Exposure to SARS-CoV-2 (event) Not sure [facility] Start: 05-04-2022 History SDOH Physical Activity DPW 0 [facility] Start: 06-30-2022 End: 01-21-2025 Social connection and isolation panel [facility] Do you belong to any clubs or organizations such as holiness groups, unions, fraternal or athletic groups, or school groups? No [facility] Are you now , , , , never or living with a partner? [facility] How often to you hav e a drink containing alcohol? Monthly or less [facility] How many standard dr inks containing alcohol do you have on a typical day? 1 or 2 [facility] How often do you hav e 6 or more drinks on 1 occasion? Never [facility] How hard is it for y ou to pay for the very basics like food, housing, medical care, and heating Not hard at all [facility] Do you feel stress - tense, restless, nervous, or anxious, or unable to sleep at night because your mind is troubled all the time - these days [OSQ] Only a little [facility] (I/We) worried wheth er (my/our) food would run out before (I/we) got money to buy more. Never true [facility] Start: 03-23-2021 Gender identity Identifies as female gender (finding) [facility] Work Phone: Start: 03-23-2021 Sexual orientation Heterosexual (finding) [facility] Work Phone: Start: 01-21-2025 Alcoholic beverage intake Ex-drinker (finding) [facility] christian Functional Status Date Assessment Result Facility 11-29-2014 Are you deaf, or do you have serious difficulty hearing No 11/29/2014 9:47 AM EDT Mimi Phillips MA No [facility] 11-29-2014 Are you blind, or do you have serious difficulty seeing, even when wearing glasses No 11/29/2014 9:47 AM ERICT Mimi Phillips MA [facility] 11-29-2014 Do you have serious difficulty walking or climbing stairs No 11/29/2014 9:47 AM ERICT Mimi Phillips MA [facility] 11-29-2014 Do you have difficul ty dressing or bathing No 11/29/2014 9:47 AM ERICT Mimi Phillips MA [facility] 11-29-2014 Because of a physica l, mental, or emotional condition, do you have difficulty doing errands alone such as visiting a physician's office or shopping No 11/29/2014 9:47 AM ERICT Mimi Phillips MA [facility] Mental Status Date Assessment Result Facility 11-29-2014 Because of a physica l, mental, or emotional condition, do you have serious difficulty concentrating, remembering, or making decisions No 11/29/2014 9:47 AM ERICT Mimi Phillips MA [facility] Clinical Notes 10-08-2015 to 01-21-2025 Shaheen Winn DO - 01/21/2025 11:07 AM EDTTelephone Encounter - Meg De Jesus MD - 01/09/2023 7:25 PM EDTTelephone Encounter - Salma Jimenez LPN - 01/09/2023 5:42 PM EDT Note Date & Type Note Facility 01-21-2025 Note HNO ID: [id number] Author: SHAHEEN WINN DO Service: ? Author [...] to re-establish care. Interim history: Moved to [place] in 2022. Has been doing well overall. Planning to move back to [place] early next year. Appetite is normal. However [...] which included preparing to see the patient, [id number] patient care, completing clinical documentation, obtaining and/or reviewing separately obtained history, performing a medically appropriate examination, ordering medications, tests, or procedures, communicating with other HCPs (not separately reported), and communicating results to the patient/family/caregiver. Shaheen Winn DO [facility] 01-21-2025 History of Present illness Narrative Diagnosis: [...] to re-establish care. Interim history: Moved to [place] in 2022. Has been doing well overall. Planning to move back to [place] early next year. Appetite is normal. However [...] which included preparing to see the patient, [id number] patient care, completing clinical documentation, obtaining and/or reviewing separately obtained history, performing a medically appropriate examination, ordering medications, tests, or procedures, communicating with other HCPs (not separately reported), and communicating results to the patient/family/caregiver. Shaheen Winn DO documented in this encounter [facility] 04-03-2024 Note Patient Outreach (IN TMMN) MAX ROLDAN ([id number]) 1955 F Date Time Provider Department 04/03/24 MEG DE JESUS During your visit today, we recorded the following information about you: Allergies As of Date: 04/03/2024 Noted Allergy Reaction TOMATOES 09/06/2011 5 - Intolerance Date Reviewed: 12/17/2022 Reviewed by: Gudelia Warren MA - Fully Assessed Visit Diagnosis:Encounter for screening mammogram for breast cancer [Z12.31] Order(s):COLTON SCREENING W CALVIN [[id number]] Order #: [id number] FUTURE Prescriptions as of 04/08/2024 - albuterol [...] cold sores [B00.1] 09/30/2020 Encounter Status:Closed by [employer] on 04/08/[address] [facility] 01-09-2023 Miscellaneous Notes OK to refill as [...] Salma Jimenez LPN documented in this encounter [facility] 12-19-2022 Miscellaneous Notes Left detailed message on a secured voicemail. Lynn Roman ----- Message from Dione Camacho APRN.ASSOCIATE GENETICS PROFESSOR sent at 12/19/2022 11:52 AM EDT ----- Please advise patient the COVID test was negative ([facility] documented in this encounter [facility] 12-17-2022 History of Present illness Narrative [...] 2022 9:40 AM documented in this encounter [facility] 12-17-2022 History of Present illness Narrative This note was created using [employer]. Subjective Max Roldan is a 67 year [...] undetermined significance (ASC-US) 2004 cleared Primary hyperparathyroidism ([facility]) 01/16/2020 Rectal prolapse Sjogren's disease ([facility]) Unspecified intestinal obstruction Recurrent Current Outpatient Medications [...] Mahogany Gonzalez PA-C documented in this encounter [facility] 12-14-2022 History of Present illness Narrative [...] sweats. She and her are moving to [facility] this weekend. PMH, medications and allergies as [...] edema. SKIN: No jaundice or rash. NEUROLOGIC: senior svp II-XII are grossly intact. No focal motor [...] Abs Lymph 1.00 - 4.00 k/uL 3.72 Evans% % 6.6 Abs Evans <0.87 k/uL 0.38 Eosin% % 2.4 Abs [...] which included preparing to see the patient, [id number] patient care, completing clinical documentation, obtaining and/or reviewing separately obtained history, performing a medically appropriate examination, counseling and educating the patient/family/caregiver, ordering medications, tests, or procedures, communicating with other HCPs (not separately reported), and communicating results to the patient/family/caregiver. Shaheen Winn DO documented in this encounter [facility] 09-26-2022 Miscellaneous Notes Called patient to reschedule January app due to change in Dr. Winn's template. Patient states they may be moving out of state and that she would call back to reschedule if needed. documented in this encounter [facility] 08-26-2022 Miscellaneous Notes Done in other phone note Meg De Jesus MD Last Rx: 05/04/22 #90 w/1. Should have available refills, can we resend? Monalisa Lees Ma documented in this encounter [facility] 06-30-2022 History of Present illness Narrative [...] Past Histories independently gathered by the clinical business support associate and the remaining scribed note accurately describes [...] Mimi Phillips Ma documented in this encounter [facility] 06-28-2022 Instructions Dione Camacho APRN.[facility] - 06/28/2022 3:05 PM EST ASSESSMENT/PLAN: [...] Discussed expected course of illness Dione Camacho APRN.[facility] EMERGENCY DEPARTMENT LOW BACK PAIN GENERAL [...] legs or feet. documented in this encounter [facility] 06-28-2022 History of Present illness Narrative This note was created using [employer]bindler[employer]. Subjective Max Roldan is a 67 year [...] Discussed expected course of illness Dione Camacho APRN.ASSOCIATE GENETICS PROFESSOR documented in this encounter [facility] 05-04-2022 Miscellaneous Notes Refilled at office visit today. Mimi Phillips Ma documented in this encounter [facility] 05-04-2022 History of Present illness Narrative Chief Complaint Patient presents with: Physical Immunizations: Flu vaccination HPI Max Roldan is a 66 year old female who presents here today for 6 month follow up. Is planning to move out of state in the next year or so, unsure if they are going to be in the office again or not. Is thinking about [place], [place], or [facility]. Gets mammogram through [facility] through [employer]. No bowel, Gi, or urinary issues. Hx of rectal prolapse. Uses Levsin 1 pill about 3 x a week if that. I will take over the Levsin when refill is needed. No chest pains, dizziness, or SOB. Lipid: She admits she has not been eating well or as active since detention. Cholesterol is up from last time. 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 Pain & Insomnia: RA; No longer follows with Rheum at [facility]. Not on any medications. Uses Medical Marijuana for insomnia and pain. Uses Amitriptyline 50 mg daily at bedtime prn, Tylenol 500 mg prn. Graves disease: Was seeing Dr. Friend at [facility], never followed back up. Follicular lymphoma: Following with Hem/Onc Dr. Winn. Had COVID in December, only had a one day that was really bad but otherwise felt fine. Skin: Would like to see Derm for some white patches on the skin, white freckles, and eczema. Is willing to travel to another [facility] location. Past medical history, appointments, medications, allergies [...] vaccine - ICD9: V04.89, ICD10: Z23 - PFIZER-BIONTNogacom COVID-19 BIVALENT BOOSTER VACCINE, AGE 12+ YR [...] Past Histories independently gathered by the clinical business support associate and the remaining scribed note accurately describes my personal service to the patient. Meg De Jesus MD The documentation for this note was completed by Mimi Phillips Ma acting as scribe for Meg De Jesus MD. May 04, 2022 11:57 AM. Mimi Phillips Ma documented in this encounter [facility] 02-17-2022 History of Present illness Narrative [...] edema. SKIN: No jaundice or rash. NEUROLOGIC: senior svp II-XII are grossly intact. No focal motor [...] Lymph 1.00 - 4.00 k/uL 2.89 3.20 Evans% % 8.2 6.5 Abs Evans <0.87 k/uL 0.50 0.51 Eosin% % 2.0 [...] Shaheen Winn DO documented in this encounter [facility] 10-08-2015 History of Past i llness Narrative Problem Noted Date Resolved Date Malignant lymphoma, 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/0710/24/2016 [place] 06/04/2007 08/18/2011 SEBORRHEIC KERATOSIS 06/04/2007 08/18/2011 Enthesopathy of hip region 03/13/200608/18 Other bursitis disorders 03/13/2006 012 Overview: Piriformis documented as of this encounter (statuses as of 02/16/2022) [facility] History of Past illness Narrative* Problem Noted Date Resolved Date Malignant lymphoma, 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/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/24/2016 [place] 06/04/2007 08/18/2011 SEBORRHEIC KERATOSIS 06/04/2007 08/18/2011 Enthesopathy of hip region 03/13/200608/18 Other bursitis disorders 03/13/2006 012 Overview: Piriformis documented as of this encounter (statuses as of 02/17/2022) [facility] History of Past illness Narrative* Problem Noted Date Resolved Date Malignant lymphoma, 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/0710/24/2016 [place] 06/04/2007 08/18/2011 SEBORRHEIC KERATOSIS 06/04/2007 08/18/2011 Enthesopathy of hip region 03/13/200608/18 Other bursitis disorders 03/13/2006 012 Overview: Piriformis documented as of this encounter (statuses as of 03/02/2022) [facility] History of Past illness Narrative* Problem Noted Date Resolved Date Malignant lymphoma, 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/0710/24/2016 [place] 06/04/2007 08/18/2011 SEBORRHEIC KERATOSIS 06/04/2007 08/18/2011 Enthesopathy of hip region 03/13/200608/18 Other bursitis disorders 03/13/2006 012 Overview: Piriformis documented as of this encounter (statuses as of 04/22/2022) [facility] History of Past illness Narrative* Problem Noted Date Resolved Date Malignant lymphoma, 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/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/24/2016 [place] 06/04/2007 08/18/2011 SEBORRHEIC KERATOSIS 06/04/2007 08/18/2011 Enthesopathy of hip region 03/13/200608/18 Other bursitis disorders 03/13/2006 012 Overview: Piriformis documented as of this encounter (statuses as of 05/04/2022) [facility] History of Past illness Narrative* Problem Noted Date Resolved Date Malignant lymphoma, 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/0710/24/2016 [place] 06/04/2007 08/18/2011 SEBORRHEIC KERATOSIS 06/04/2007 08/18/2011 Enthesopathy of hip region 03/13/200608/18 Other bursitis disorders 03/13/2006 012 Overview: Piriformis documented as of this encounter (statuses as of 05/04/2022) [facility] History of Past illness Narrative* Problem Noted Date Resolved Date Malignant lymphoma, 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/0710/24/2016 [place] 06/04/2007 08/18/2011 SEBORRHEIC KERATOSIS 06/04/2007 08/18/2011 Enthesopathy of hip region 03/13/200608/18 Other bursitis disorders 03/13/2006 012 Overview: Piriformis documented as of this encounter (statuses as of 05/16/2022) [facility] of Past illness Narrative* Problem Noted Date Resolved Date Malignant lymphoma, 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/0710/24/2016 [place] 06/04/2007 08/18/2011 SEBORRHEIC KERATOSIS 06/04/2007 08/18/2011 Enthesopathy of hip region 03/13/200608/18 Other bursitis disorders 03/13/2006 012 Overview: Piriformis documented as of this encounter (statuses as of 06/30/2022) [facility] of Past illness Narrative* Problem Noted Date Resolved Date Malignant lymphoma, 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/0710/24/2016 [place] 06/04/2007 08/18/2011 SEBORRHEIC KERATOSIS 06/04/2007 08/18/2011 Enthesopathy of hip region 03/13/200608/18 Other bursitis disorders 03/13/2006 012 Overview: Piriformis documented as of this encounter (statuses as of 07/01/2022) [facility] Narrative* Problem Noted Date Resolved Date Malignant lymphoma, 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/0710/24/2016 [place] 06/04/2007 08/18/2011 SEBORRHEIC KERATOSIS 06/04/2007 08/18/2011 Enthesopathy of hip region 03/13/200608/18 Other bursitis disorders 03/13/2006 012 Overview: Piriformis documented as of this encounter (statuses as of 08/26/2022) [place] [address]-14-2016 History of Past illness Narrative* Problem Noted Date Resolved Date Malignant lymphoma, 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/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/24/2016 [place] 06/04/2007 08/18/2011 SEBORRHEIC KERATOSIS 06/04/2007 08/18/2011 Enthesopathy of hip region 03/13/200608/18 Other bursitis disorders 03/13/2006 012 Overview: Piriformis documented as of this encounter (statuses as of 09/26/2022) [facility] Narrative* Problem Noted Date Resolved Date Malignant lymphoma, 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/0710/24/2016 [place] 06/04/2007 08/18/2011 SEBORRHEIC KERATOSIS 06/04/2007 08/18/2011 Enthesopathy of hip region 03/13/200608/18 Other bursitis disorders 03/13/2006 012 Overview: Piriformis documented as of this encounter (statuses as of 12/14/2022) [facility] Narrative* Problem Noted Date Resolved Date Malignant lymphoma, 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/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/24/2016 [place] 06/04/2007 08/18/2011 SEBORRHEIC KERATOSIS 06/04/2007 08/18/2011 Enthesopathy of hip region 03/13/200608/18 Other bursitis disorders 03/13/2006 012 Overview: Piriformis documented as of this encounter (statuses as of 12/17/2022) [facility] of Past [facility] Narrative* Problem Noted Date Resolved Date Malignant lymphoma, 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/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/24/2016 [place] 06/04/2007 08/18/2011 SEBORRHEIC KERATOSIS 06/04/2007 08/18/2011 Enthesopathy of hip region 03/13/200608/18 Other bursitis disorders 03/13/2006 012 Overview: Piriformis documented as of this encounter (statuses as of 12/20/2022) [facility] of [facility] Narrative* Problem Noted Date Diagnosed Date Resolved Date Malignant lymphoma, 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/08/2015 10/24/2016 [place] 06/04/2007 08/18/2011 SEBORRHEIC KERATOSIS 06/04/2007 012 Enthesopathy of hip region 03/13/2006 0 08/18/2011 Other bursitis disorders 03/13/2006 Overview: Piriformis documented as of this encounter (statuses as of 01/10/2023) [facility] of [facility] Narrative* Problem Noted Date Diagnosed Date Resolved Date Malignant lymphoma, 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/08/2015 10/24/2016 [place] 06/04/2007 08/18/2011 SEBORRHEIC KERATOSIS 06/04/2007 012 Enthesopathy of hip region 03/13/2006 0 08/18/2011 Other bursitis disorders 03/13/2006 Overview: Piriformis documented as of this encounter (statuses as of 05/02/2023) [facility] 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 [facility] 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 [facility] Diagnosis Screening for lipid disorders- Primary [facility] Diagnosis Wellness examination- Primary Chronic [...] for breast cancer documented in this encounter [facility] note* Diagnosis Urinary frequency- Primary Acute left-sided low back pain without sciatica documented in this encounter [facility] note* Diagnosis Acute left-sided low back pain without sciatica- Primary documented in this encounter [facility] note* Diagnosis Chronic insomnia Insomnia, unspecified documented in this encounter [facility] note* Diagnosis 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 documented in this encounter [facility] note* Diagnosis Bronchitis- Primary Bronchitis, not specified as acute or chronic documented in this encounter [facility] note* Diagnosis Encounter for screening mammogram for breast cancer documented in this encounter [facility] note* Diagnosis Acute cough documented in this encounter [facility] note* Diagnosis Acute left-sided low back pain without sciatica documented in this encounter [facility] note* Diagnosis Encounter for screening mammogram for breast cancer documented in this encounter [facility] note* Diagnosis 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 documented in this encounter [facility] for referral (narrative)* Diagnostic Procedure Only (Routine) - Pending Review Specialty Diagnoses / Procedures Referred By Parmjit keith Referred To Contact [facility] Diagnoses Encounter for screening mammogram for breast cancer Procedures COLTON SCREENING SCREENING MAMMOGRAPHY BI 2-VIEW BREAST INC CAD Meg De Jesus MD [address] [place] [address] [facility] [address] [place] [id number] Referral ID Status Reason Start Date Expiration Date Visits Requested Visits Authorized [id number] Pending Review Auto-Generat ed Referral 2 06/10/2023 1 1 [facility] for referral (narrative)* Diagnostic Procedure Only (Routine) - Closed Specialty Diagnoses / Procedures Referred By Parmjit keith Referred To Contact XR IMAGING Diagnoses Acute left-sided low back pain without sciatica Procedures XR LUMBAR GENERAL 3V AP/LAT/L5-S1 RADEX SPINE LUMBOSACRAL 2/3 VIEWS Meg De Jesus MD [address] [place] [address] Xr Imaging Referral ID Status Reason Start Date Expiration Date V isits Requested Visits Authorized [id number] Closed Auto-Generate d Referral 06/30/2022 07/30/2023 1 1 [facility] for referral (narrative)* Diagnostic Procedure Only (Routine) - Pending Review Specialty Diagnoses / Procedures Referred By Parmjit keith Referred To Contact [facility] Diagnoses Encounter for screening mammogram for breast cancer Procedures COLTON SCREENING SCREENING MAMMOGRAPHY BI 2-VIEW BREAST INC CAD Meg De Jesus MD [address] [place] [address] [facility] [address] [place] [address] Referral ID Status Reason Start Date Expiration Date Visits Requested Visits Authorized [id number] Pending Review Auto-Generat ed Referral 04/26/2023 05/25/2024 1 1 [facility] for referral (narrative)* Diagnostic Procedure Only (Routine) - Closed Specialty Diagnoses / Procedures Referred By Parmjit keith Referred To Contact XR IMAGING Diagnoses Acute left-sided low back pain without sciatica Procedures XR LUMBAR GENERAL 3V AP/LAT/L5-S1 RADEX SPINE LUMBOSACRAL 2/3 VIEWS Meg De Jesus MD [address] [place] [address] [place] [id number] Referral ID Status Reason Start Date Expiration Date V isits Requested Visits Authorized [id number] Closed Auto-Generate d Referral 06/30/2022 07/30/2023 1 1 [facility] for referral (narrative)* Diagnostic Procedure Only (Routine) - New Request Specialty Diagnoses / Procedures Referred By Parmjit keith Referred To Contact [facility] Diagnoses Encounter for screening mammogram for breast cancer Procedures COLTON SCREENING W CALVIN SCREENING DIGITAL BREAST TOMOSYNTHESIS BI SCREENING MAMMOGRAPHY BI 2-VIEW BREAST INC CAD Meg De Jesus MD [address] [place] [address] [facility] [address] [place] [address] Referral ID Status Reason Start Date Expiration Date Visits Requested Visits Authorized [id number] New Request Auto-Generat ed Referral 04/03/2024 05/03/2025 1 1 [facility] for visit Narrative* Diagnostic Procedure Only (Routine) - Closed Specialty Diagnoses / Procedures Referred By Parmjit keith Referred To Contact XR IMAGING Diagnoses Acute left-sided low back pain without sciatica Procedures XR LUMBAR GENERAL 3V AP/LAT/L5-S1 RADEX SPINE LUMBOSACRAL 2/3 VIEWS Meg De Jesus MD [address] [place] [address] [place] [id number] Referral ID Status Reason Start Date Expiration Date V isits Requested Visits Authorized [id number] Closed Auto-Generate d Referral 06/30/2022 07/30/2023 1 1 [facility] Summary Purpose Family History No Family History Records FoundNo Family History Records FoundNo Family History Records Found Advance Directives No Advanced Directives Records FoundDocuments on File Type Date Recorded Patient Clinical Business Analyst Expl 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 Advance Directive(s) 06/03/2014 12:01 PM Advance Directive(s) 06/03/2014 12:04 PM Documents on File Type Date Recorded Patient Clinical Business Analyst Expl anation Advance Directive(s) 06/03/2014 12:01 PM Advance Directive(s) 06/03/2014 12:04 PM Documents on File Type Date Recorded Patient Clinical Business Analyst Expl anation Advance Directive(s) 06/03/2014 12:04 PM Advance Directive(s) 06/03/2014 12:01 PM Documents on File Type Date Recorded Patient Clinical Business Analyst Expl anation Advance Directive(s) 06/03/2014 12:04 PM Advance Directive(s) 06/03/2014 12:01 PM Reason for Referral Specialty Diagnoses / Procedures Referred By Parmjit keith Referred To Contact Dermatology Diagnoses Eczema, unspecified type Procedures CONSULT TO DERMATOLOGY Meg De Jesus MD [address] [facility] [place] [address] Referral ID Status Reason Start Date Expiration Date Visits Requested Visits Authorized [id number] Ref Not Required PCP Requested Referral 05/04/2022 05/04/2023 1 1 Additional Source Comments INFORMATION SOURCE (unrecogn ized section and content) DATE CREATED AUTHOR 12/21/2017 [facility] DATE CREATED AUTHOR AUTHOR'S ORGANIZ ATION 03/20/2018 [facility] ([place]) DATE CREATED AUTHOR AUTHOR'S ORGANIZ ATION 01/23/[address] [facility] Source Comments (unrecognize d section and content) In the event this informatio n is protected by the Federal Confidentiality of Alcohol and Drug Abuse Patient Records regulations: The Federal rules restrict any use of the information to criminally investigate or prosecute any alcohol or drug abuse patient.[facility] the event this information is protected by the Federal Confidentiality of Alcohol and Drug Abuse Patient Records regulations: The Federal rules restrict any use of the information to criminally investigate or prosecute any alcohol or drug abuse patient.[facility] the event this information is protected by the Federal Confidentiality of Alcohol and Drug Abuse Patient Records regulations: The Federal rules restrict any use of the information to criminally investigate or prosecute any alcohol or drug abuse patient.[facility] the event this information is protected by the Federal Confidentiality of Alcohol and Drug Abuse Patient Records regulations: The Federal rules restrict any use of the information to criminally investigate or prosecute any alcohol or drug abuse patient.[facility] the event this information is protected by the Federal Confidentiality of Alcohol and Drug Abuse Patient Records regulations: The Federal rules restrict any use of the information to criminally investigate or prosecute any alcohol or drug abuse patient.[facility] the event this information is protected by the Federal Confidentiality of Alcohol and Drug Abuse Patient Records regulations: The Federal rules restrict any use of the information to criminally investigate or prosecute any alcohol or drug abuse patient.[facility]In the event this information is protected by the Federal Confidentiality of Alcohol and Drug Abuse Patient Records regulations: The Federal rules restrict any use of the information to criminally investigate or prosecute any alcohol or drug abuse patient.[facility] the event this information is protected by the Federal Confidentiality of Alcohol and Drug Abuse Patient Records regulations: The Federal rules restrict any use of the information to criminally investigate or prosecute any alcohol or drug abuse patient.[facility]In the event this information is protected by the Federal Confidentiality of Alcohol and Drug Abuse Patient Records regulations: The Federal rules restrict any use of the information to criminally investigate or prosecute any alcohol or drug abuse patient.[facility]In the event this information is protected by the Federal Confidentiality of Alcohol and Drug Abuse Patient Records regulations: The Federal rules restrict any use of the information to criminally investigate or prosecute any alcohol or drug abuse patient.[facility]In the event this information is protected by the Federal Confidentiality of Alcohol and Drug Abuse Patient Records regulations: The Federal rules restrict any use of the information to criminally investigate or prosecute any alcohol or drug abuse patient.[facility] HospitalIn the event this information is protected by the Federal Confidentiality of Alcohol and Drug Abuse Patient Records regulations: The Federal rules restrict any use of the information to criminally investigate or prosecute any alcohol or drug abuse patient.[facility] HospitalIn the event this information is protected by the Federal Confidentiality of Alcohol and Drug Abuse Patient Records regulations: The Federal rules restrict any use of the information to criminally investigate or prosecute any alcohol or drug abuse patient.[facility] HospitalIn the event this information is protected by the Federal Confidentiality of Alcohol and Drug Abuse Patient Records regulations: The Federal rules restrict any use of the information to criminally investigate or prosecute any alcohol or drug abuse patient.[facility] HospitalIn the event this information is protected by the Federal Confidentiality of Alcohol and Drug Abuse Patient Records regulations: The Federal rules restrict any use of the information to criminally investigate or prosecute any alcohol or drug abuse patient.[facility] HospitalIn the event this information is protected by the Federal Confidentiality of Alcohol and Drug Abuse Patient Records regulations: The Federal rules restrict any use of the information to criminally investigate or prosecute any alcohol or drug abuse patient.[facility] HospitalIn the event this information is protected by the Federal Confidentiality of Alcohol and Drug Abuse Patient Records regulations: The Federal rules restrict any use of the information to criminally investigate or prosecute any alcohol or drug abuse patient.[facility] HospitalIn the event this information is protected by the Federal Confidentiality of Alcohol and Drug Abuse Patient Records regulations: The Federal rules restrict any use of the information to criminally investigate or prosecute any alcohol or drug abuse patient.[facility]In the event this information is protected by the Federal Confidentiality of Alcohol and Drug Abuse Patient Records regulations: The Federal rules restrict any use of the information to criminally investigate or prosecute any alcohol or drug abuse patient.[facility] HospitalIn the event this information is protected by the Federal Confidentiality of Alcohol and Drug Abuse Patient Records regulations: The Federal rules restrict any use of the information to criminally investigate or prosecute any alcohol or drug abuse patient.[facility] Care Teams (unrecognized sec tion and content) Brewery Cellar Worker Relationship Specialty Start Date End Date Meg De Jesus MD [address] [place] [address] PCP - General Family Practice 08/18/11 Brewery Cellar Worker Relationship Specialty Start Date End Date Meg De Jesus MD [address] [place] [address] PCP - General Family Practice 08/18/11 Brewery Cellar Worker Relationship Specialty Start Date End Date Meg De Jesus MD [address] [place] [address] PCP - General Family Practice 08/18/11 Brewery Cellar Worker Relationship Specialty Start Date End Date Meg De Jesus MD [address] [place] [address] PCP - General Family Medicine 08/18/11 Brewery Cellar Worker Relationship Specialty Start Date End Date Meg De Jesus MD [address] [facility] [place] [place] [address] PCP - General Family Medicine 08/18/11 Brewery Cellar Worker Relationship Specialty Start Date End Date Meg De Jesus MD [address] [facility] [place] [address] PCP - General Family Medicine 08/18/11 Brewery Cellar Worker Relationship Specialty Start Date End Date Meg De Jesus MD [address] [facility] [place] [address] PCP - General Family Medicine 08/18/11 Brewery Cellar Worker Relationship Specialty Start Date End Date Meg De Jesus MD [address] [facility] [place] [address] PCP - General Family Medicine 08/18/11 Brewery Cellar Worker Relationship Specialty Start Date End Date Meg De Jesus MD [address] [facility] [place] [address] PCP - General Family Medicine 08/18/11 Brewery Cellar Worker Relationship Specialty Start Date End Date Meg De Jesus MD [address] [facility] [place] [address] PCP - General Family Medicine 08/18/11 Brewery Cellar Worker Relationship Specialty Start Date End Date Meg De Jesus MD [address] [facility] [place] [address] PCP - General Family Medicine 08/18/11 Brewery Cellar Worker Relationship Specialty Start Date End Date Meg De Jesus MD [address] [facility] [place] [address] PCP - General Family Medicine 08/18/11 Brewery Cellar Worker Relationship Specialty Start Date End Date Meg De Jesus MD [address] [facility] [place] [address] PCP - General Family Medicine 08/18/11 Brewery Cellar Worker Relationship Specialty Start Date End Date Meg De Jesus MD [address] [place], [place] [id number] PCP - General Family Medicine 08/18/11 Brewery Cellar Worker Relationship Specialty Start Date End Date Meg De Jesus MD [address] [place], [place] [id number] PCP - General Family Medicine 08/18/11 Brewery Cellar Worker Relationship Specialty Start Date End Date Meg De Jesus MD [address] [place], [place] [id number] PCP - General Family Medicine 08/18/11 Brewery Cellar Worker Relationship Specialty Start Date End Date Meg De Jesus MD [address] [place], [place] [id number] PCP - General Family Medicine 08/18/11 Miguel Kapoor APRN.ASSOCIATE GENETICS PROFESSOR [address] [place], [place] [id number] Inhalation Therapy Aide Family Medicine 06/11/24 Reason for Visit (unrecogniz [...] BE BASED ON THE PRIMARY CLINICAL RECORDS. [employer] [facility]. provides no warranty or guarantee of the accuracy or completeness of information in this document.
--- NOTE | 2025-01-26 10:49 | CM.ED ---
Social Work Date of referral: 01/26/25 Reason for referral: No Advanced Care Directives (ACD's) on file Referred by: Social Work Identification Patient provided consent for social work visit. Zyglo Inspector requested a copy of patient's ACD's which patient agreed to bring in. Anahy Burks, R&D LAB TECHNICIAN, CONSTRUCTION RIGGER
--- NOTE | 2025-01-26 10:49 | CM.ED ---
Social Work Date of referral: 01/26/25 Reason for referral: No Advanced Care Directives (ACD's) on file Referred by: Social Work Identification Patient provided consent for social work visit. Sodium Chlorite Operator requested a copy of patient's ACD's which patient agreed to bring in. Anahy Burks, CYBER SOFTWARE ENGINEER, LOCKSTITCH WAISTBAND SETTER
--- NOTE | 2025-01-26 10:53 | EX.ED.DYSGE1 ---
HPI History of Present Illness Chief Complaint: GI Bleed Narrative Narrative: Chief complaint and HPI: Bright red blood per rectum. 69-year-old female with past medical history of internal hemorrhoids, rectocele repair that developed abscess and status post colostomy with reanastomosis presents for evaluation of bright red blood per rectum. Patient states she is intermittently gets bright red blood per rectum given her hemorrhoids. States she had a bowel movement yesterday that had bright red blood. States she has had 2 bowel movements since it is just been bright red blood without stool. She endorses some fatigue and lightheadedness. Associated symptom is mild abdominal pain. No history of diverticulosis. Has not had a colonoscopy since 1999 and one, states she cannot have one due to scar tissue making it difficult. She denies any fever, chills, chest pain, shortness of breath, dysuria. Review of systems: See HPI Medications: As listed on the chart Allergies: As listed on the chart PFSH: Per chart Vital signs: As listed on the chart. Reviewed. Physical exam: Gen: A&O x3, NAD Head: Normocephalic, atraumatic Eyes: No sclera icterus, conjunctiva clear ENT: Moist mucous membranes Neck: Trachea midline, No JVD CV: RRR, no murmurs, no peripheral edema Resp: Lungs CTA BL, no w/r/c GI: Abd soft, non-distended, non-tender, no r/r/g Rectal: Normal external examination. Small non-thrombosed external hemorrhoid. Normal tone and sensation. No masses, fluctuance, or tenderness. No pain out of proportion. Minimal stool on gloved finger. Musc: Full ROM, no deformity Skin: Warm, dry Neuro: Alert, oriented, grossly intact, sensation intact Psych: Cooperative, appropriate mood and affect [facility] Home Medications ?Medication ?Instructions ?Recorded ?Last Taken ?Type melatonin 10 mg sublingual tablet 10 mg PO QHS 09/29/15 01/25/25 History ibuprofen 400 mg tablet 400 mg PO Q6H PRN PRN Pain 12/04/15 Unknown History Allergy/AdvReac Type Severity Reaction Status Date / Time No Known Allergies Allergy Verified 01/26/25 09:33 Social History Smoking Status: Former smoker EXAM Physical Exam Const Vital Signs: 01/26/25 08:58 01/26/25 12:00 Temperature 97.9 F Temperature Source Oral Pulse Rate 56 L 52 L Respiratory Rate 18 18 Blood Pressure 156/82 H 149/82 H Blood Pressure Mean 106 104 Pulse Ox 98 99 Oxygen Delivery Method Room Air Room Air MDM MDM MDM Narrative Medical decision making narrative: 69-year-old female with past medical history of internal hemorrhoids, rectocele repair that developed abscess and status post colostomy with reanastomosis presents for evaluation of bright red blood per rectum. History of hemorrhoidal bleeding. Onset of symptoms yesterday. Has had 3 bowel movements. Differential diagnosis includes but is not limited to hemorrhoidal bleeding, diverticulosis, colitis, electrolyte abnormality, anemia. Abdominal pain workup ordered including CT abdomen and pelvis. CBC without leukocytosis or anemia. Platelets unremarkable. CMP unremarkable. Lipase unremarkable.CT abdomen pelvis shows no GI bleed. No diverticulitis. On reevaluation, patient use the restroom without any recurrent bright red blood per rectum. Patient's bleeding is likely secondary to her hemorrhoidal bleeding. Recommend following up with PCP and general surgery. Sitz bath's. MiraLAX to prevent constipation. Return cautions explained. She affirmed understanding of plan. Impression: 1. Bright red blood per rectum 2. Hemorrhoidal bleeding Lab Data Labs: Laboratory Results - last 24 hr 01/26/25 01/26/25 09:35 10:23 WBC 6.1 RBC 4.37 Hgb 12.6 Hct 38.3 MCV 87.6 MCH 28.8 MCHC 32.9 RDW Std Deviation 40.3 RDW Coeff of Alex 12.6 Plt Count 232 MPV 9.7 Immature Gran % (Auto) 0.300 Neut % (Auto) 52.4 Lymph % (Auto) 38.4 [place] % (Auto) 6.4 Eos % (Auto) 1.8 Baso % (Auto) 0.7 Absolute Neuts (auto) 3.2 Absolute Lymphs (auto) 2.35 Nucleated RBC % 0 Sodium 140 Potassium 4.0 Chloride 105 Carbon Dioxide 23.6 Anion Gap 12 BUN 13 Creatinine 0.84 Estim Creat Clear Calc 56.45 Est GFR (MDRD) Non-Af 77 BUN/Creatinine Ratio 15.0 Glucose 91 Lactic Acid 1.1 Calcium 9.5 Total Bilirubin 0.31 AST 24 ALT 14 Alkaline Phosphatase 110 H Total Protein 7.2 Albumin 4.3 Globulin 2.9 Albumin/Globulin Ratio 1.5 Lipase 65 Radiography Diagnostic Testing: Clinical Impression(s) from Imaging Studies Abdomen/Pelvis CTA 01/26/25 10:12 IMPRESSION: No focus of arterial contrast extravasation to suggest large active arterial bleed. Reading Location: [facility] Discharge Plan Triage Chief Complaint: GI Bleed ED Provider: Amadeo Holman Dx/Rx/DC Orders Clinical Impression: Bleeding hemorrhoid Instructions: ED Hemorrhoids Prescriptions: No Action melatonin 10 MG tablet 10 mg PO QHS ibuprofen 400 MG tablet 400 mg PO Q6H PRN PRN (Reason: Pain) Primary Care Provider: Edvin Gandara Referrals: Edvin Gandara MD [Primary Care Provider] - 3-5 Days Tino Pantoja MD [Med Staff - Active Staff] - 3-5 Days Activity Restrictions/Additional Instructions: Recommend daily MiraLAX to prevent constipation. Warm sitz bath's. Follow-up with general surgery and primary care physician. Return back to the ED symptoms change or worsen. Print Language: German Disposition Disposition: Home, Self Care
[2025-01-26 12:00] VITALS: BP 149/82; PULSE 52; RESP 18; O2SAT 99
[2025-01-26 12:21] VITALS: BP 133/68; PULSE 76; RESP 14; TEMP 36.9; O2SAT 100
== END 2025-01-26 12:31 | disposition home or self-care (01) ==
PROVIDERS: Emergency Provider Surgery; PCP Family Medicine; Visit Provider Surgery
DX: K62.5 Hemorrhage of anus and rectum (principal); Z93.3 Colostomy status; Z87.891 Personal history of nicotine dependence; K64.9 Unspecified hemorrhoids
CPT/HCPCS: 74174; 80053; 83605; 83690; 85025; 96361; 96374; 99283; Q9967; J2405